=== PATIENT | female | born 1970 | race Caucasian/White ===

== ENCOUNTER 2017-05-02 11:55 | Emergency (ER) | payer MEDICAID ==
[~2017-05-02] VITALS: Ht 160 cm; Wt 100.0 kg
[2017-05-02 11:58] VITALS: Ht 160 cm; Wt 100.0 kg
[2017-05-02] MEDS ORDERED: morphine 2 MG INJ IV STA (12:11)
[2017-05-02] MEDS ORDERED: SOD CHLORIDE 0.9% 1,000 ML IV STA (12:11)
[2017-05-02] MEDS ORDERED: ONDANSETRON 4 MG INJ IV STA (12:11)
--- NOTE | 2017-05-02 12:21 | ERA ---
ER Documentation Chief Complaint Date/Time DATE: 05/02/17 TIME: 12:18 Chief Complaint EPIGASTRIC PAIN RAD LOWER ABD , ONSET 2 HRS AGO HPI This is a morbidly obese 46-year-old female presenting with a chief complaints of lower pelvic pain and upper abdominal pain 2-4 hours. Patient has had the lower abdominal/pelvic symptoms in the past but has not had the epigastric symptoms. Denies any associated manifestations including triggers or association with food. Denies nausea, vomiting, diarrhea, constipation, and inability to tolerate p.o. Patient has not taken any medications to relieve the symptoms. Nursing notes have been reviewed and are consistent with history given. ROS All systems reviewed and are negative except as per history of present illness. Medications Home Meds Active Scripts Polyethylene Glycol* (Miralax*) 17 Gm Powd.pack, 17 GM PO BID, #60 PACKET Prov:TONY HUYNH PA-C 05/02/17 Magnesium Citrate* (Magnesium Citrate*) 296 Ml Solution, 296 ML PO ONCE, #1 BOTTLE Prov:TONY HUYNH PA-C 05/02/17 Allergies Allergies: Coded Allergies: No Known Drug Allergy (Verified Allergy, Mild, 05/02/17) PMhx/Soc History of Surgery: No Hx Neurological Disorder: No Hx Respiratory Disorders: No Hx Cardiac Disorders: No Hx Miscellaneous Medical Probl: No Hx Alcohol Use: No Hx Substance Use: No Hx Tobacco Use: No Physical Exam Vitals Vital Signs Date Time Temp Pulse Resp B/P Pulse Ox O2 Delivery O2 Flow Rate FiO2 05/02/17 11:58 98.1 82 18 125/82 99 Physical Exam Const: Healthy-appearing. Well-nourished. Well-developed. No acute distress. Head: Normocephalic, Atraumatic. Eyes: Non-injected; No discharge or foreign body. EOMI and BRANDON bilaterally. Ears: Normal External Ears, EACs clear, TM normal bilaterally without erythema. Nose: Normal external nose; no discharge, septal deviation, or sinus tenderness. Oral: No oral edema visualized. Mucous membranes moist and pink. Neck: No cervical lymphadenopathy, masses or goiter palpated. Trachea midline. Supple ~ No meningismus. Pulm: Good air movement in upper and lower respiratory tracts. No dyspnea, stridor, tripoding or drooling. Clear to auscultation bilaterally. Cardio: Regular rate and rhythm; No murmurs, gallops or rubs auscultated. No JVD grossly observed. Radial and posterior tibial pulses 2+ bilaterally. No cyanosis. Capillary refill less than 2 seconds. Abd: Moderate epigastric and left lower quadrant tenderness. No McBurney's point tenderness. Voluntary guarding. No involuntary guarding or distention. No adnexal masses palpated. Minimal adnexal tenderness. MS: Normal motor strength, normal tone with gross examination. Skin: No petechiae or rashes. No ulcer, induration, jaundice. Good turgor. Back: No midline, flank or CVA tenderness. Ext: No edema or palpable cord. Normal movement of all extremities grossly observed. Neur: Awake, alert and oriented x3. Neurovascularly intact bilaterally. Psych: Normal Mood and Affect. Result Diagram: 05/02/17 1224 05/02/17 1224 Results 24 hrs Laboratory Tests Test 05/02/17 12:24 05/02/17 13:23 White Blood Count 11.310^3/ul Red Blood Count 4.5610^6/ul Hemoglobin 11.8g/dl Hematocrit 37.8% Mean Corpuscular Volume 82.9fl Mean Corpuscular Hemoglobin 25.9pg Mean Corpuscular Hemoglobin Concent 31.2g/dl Red Cell Distribution Width 16.0% Platelet Count 73163^3/UL Mean Platelet Volume 12.1fl Neutrophils % 83.4% Lymphocytes % 12.2% Monocytes % 3.0% Eosinophils % 0.8% Basophils % 0.2% Nucleated Red Blood Cells % 0.0/100WBC Neutrophils # 9.410^3/ul Lymphocytes # 1.410^3/ul Monocytes # 0.310^3/ul Eosinophils # 0.110^3/ul Basophils # 0.010^3/ul Nucleated Red Blood Cells # 0.010^3/ul Prothrombin Time 13.0Sec Prothrombin Time Ratio 1.0 INR International Normalized Ratio 0.98 Activated Partial Thromboplast Time 22.5Sec Sodium Level 146mmol/L Potassium Level 3.7mmol/L Chloride Level 104mmol/L Carbon Dioxide Level 26mmol/L Anion Gap 20 Blood Urea Nitrogen 14mg/dl Creatinine 0.75mg/dl Glucose Level 129mg/dl Calcium Level 8.4mg/dl Total Bilirubin 0.1mg/dl Direct Bilirubin 0.00mg/dl Indirect Bilirubin 0.1mg/dl Aspartate Amino Transf (AST/SGOT) 21IU/L Alanine Aminotransferase (ALT/SGPT) 31IU/L Alkaline Phosphatase 128IU/L Total Protein 8.2g/dl Albumin 4.2g/dl Globulin 4.00g/dl Albumin/Globulin Ratio 1.05 Lipase 32U/L Urine Color YELLOW Urine Clarity CLOUDY Urine pH 6.0 Urine Specific [place] 1.017 Urine Ketones NEGATIVEmg/dL Urine Nitrite NEGATIVEmg/dL Urine Bilirubin NEGATIVEmg/dL Urine Urobilinogen NEGATIVEmg/dL Urine Leukocyte Esterase 2+Ale/ul Urine Microscopic RBC 10/HPF Urine Microscopic WBC 23/HPF Urine Squamous Epithelial Cells FEW/HPF Urine Bacteria FEW/HPF Urine Mucus FEW/HPF Urine Hemoglobin 3+mg/dL Urine Glucose NEGATIVEmg/dL Urine Total Protein NEGATIVEmg/dl Current Medications Medications (Trade) Dose Ordered Sig/Malena Route PRN Reason Start Time Stop Time Status Last Admin Dose Admin Sodium Chloride (NS) 1,000 ml @ 1,000 mls/hr Q1H STAT IV 05/02/17 12:11 05/02/17 13:10 DC 05/02/17 12:34 Morphine Sulfate (morphine) 2 mg ONCE STAT IV 05/02/17 12:11 05/02/17 12:13 DC 05/02/17 13:26 Ondansetron HCl (Zofran Inj) 4 mg ONCE STAT IV 05/02/17 12:11 05/02/17 12:13 DC 05/02/17 12:34 Procedures/MDM Patient was evaluated and worked up for abdominal discomfort. Patient was given 1 L saline bolus over 1 hour, 2 mg morphine IV, 4 mg Zofran IV with relief of symptoms. The workup included CBC, CMP, lipase, urinalysis, urine and noncontrast CT of abdomen pelvis. CBC: Leukocytosis at 11.8. CMP hypernatremia 146. Increased alk phos. Normal lipase AST and ALT.CT was read by the radiologist given the following impression: 1. There is substantial stool within the colon, particularly on the right. A few scattered diverticuli are evident with there is no evidence of bowel obstruction or diverticulitis. Portions of a normal-appearing vermiform appendix are evident an overlying soft tissue density contiguous with the right uterine fundus suspicious for a fibroid. 2. There is no evidence of urinary outflow obstruction or ureterolithiasis. The bladder appears unremarkable. 3. Borderline hepatomegaly with no focal lesion. 4. Discoid atelectasis is noted within the posterior lung bases bilaterally. 5. Bilateral spondylolysis at L5 not associated with significant spondylolisthesis. Current most likely diagnosis is constipation versus abdominal pain of unknown origin. At this time I do not suspect appendicitis, ectopic , ovarian cyst, PID, UTI, intestinal ischemia, peritonitis, mechanical intestinal obstruction, perforated viscus, acute pancreatitis, cholelithiasis, cholangitis , mechanical obstruction, or AAA. On repeat exam, the abdominal exam has improved. I reviewed the findings with my attending Dr. West who agrees with the assessment and plan. The patient is well appearing, and tolerates PO. I have spoke with the patient regarding their condition and future management. They have verbally responded that they understand their status and treatment plan. The patients vitals are stable, and their current condition is appropriate for discharge. The patient will be given discharge instructions with return precautions. Outpatient medications: Magnesium citrate 1 bottle, MiraLAX Departure Diagnosis: Primary Impression: Abdominal pain Qualified Code: R10.84 - Generalized abdominal pain Additional Impression: Abdominal cramps Condition: Stable Additional Instructions: Follow up with your PCP within the next 1-3 days for a more thorough evaluation and a possible referral to a specialist. Return the the emergency department immediately if symptoms worsen or change. If you have any questions regarding medications, ask your pharmacist or us before you leave. If any adverse reactions occur while taking your medications, discontinue the treatment and return to the emergency department immediately. Take your medications as directed, and complete the entire course of treatment. TONY HUYNH PA-C May 02, 2017 12:21
[2017-05-02 12:42] LABS: BASOPHILS % 0.2 % (0.0-2.0); EOSINOPHILS # 0.1 10^3/ul (0.0-0.5); EOSINOPHILS % 0.8 % (0.0-7.0); HEMATOCRIT 37.8 % (37.0-47.0); HEMOGLOBIN 11.8 g/dl (12.0-16.0); LYMPHOCYTES # 1.4 10^3/ul (0.8-2.9); LYMPHOCYTES % 12.2 % (15.0-51.0); MEAN CORPUSCULAR HEMOGLOBIN 25.9 pg (29.0-33.0); MEAN CORPUSCULAR HGB CONC 31.2 g/dl (32.0-37.0); MEAN CORPUSCULAR VOLUME 82.9 fl (82.0-101.0); MEAN PLATELET VOLUME 12.1 fl (7.4-10.4); MONOCYTE # 0.3 10^3/ul (0.3-0.9); NEUTROPHIL # 9.4 10^3/ul (1.6-7.5); NEUTROPHILS % 83.4 % (39.0-77.0); PLATELET COUNT 201 10^3/UL (140-415); RED BLOOD COUNT 4.56 10^6/ul (4.20-5.40); WHITE BLOOD COUNT 11.3 10^3/ul (4.8-10.8)
[2017-05-02 12:56] LABS: INR 0.98
[2017-05-02 12:57] LABS: PARTIAL THROMBOPLASTIN TIME 22.5 Sec (25.0-35.0)
[2017-05-02 13:51] LABS: ALBUMIN 4.2 g/dl (3.3-4.9); ALBUMIN/GLOBULIN RATIO 1.05; BILIRUBIN,INDIRECT 0.1 mg/dl (0-1.1); BILIRUBIN,TOTAL 0.1 mg/dl (0.2-1.3); CALCIUM 8.4 mg/dl (8.4-10.2); CREATININE 0.75 mg/dl (0.44-1.00); POTASSIUM 3.7 mmol/L (3.5-5.1); TOTAL PROTEIN 8.2 g/dl (6.1-8.1)
--- NOTE | 2017-05-02 14:08 | RADRPT ---
PROCEDURE: CT Abdomen and Pelvis without contrast CLINICAL INDICATION: At the gastric and bilateral pelvic pain TECHNIQUE: Transaxial images were obtained through the abdomen and pelvis on a multi-slice scanner without the intravenous contrast administration. No oral contrast had previously been given. Sagit heidi and coronal re-formations were subsequently reconstructed. One or more of the following dose reduction techniques were used: - Automated exposure control. - Adjustment of the mA and/or kV according to patient size. - Use of iterative reconstruction technique. Radiation dose: CTDIvol = 23.55 mGy; DLP = 1227.33 mGy-cm. COMPARISON: No prior studies are available for comparison. FINDINGS: Lung bases: Foci of discoid atelectasis are seen within the posterior sulci of the lungs bilaterally . Liver: The liver is borderline enlarged with no focal lesion identified. Gallbladder: The wall is not thickened. No radiopaque stones are identified. Bile ducts: The intra and extrahepatic bile ducts are normal in caliber. Pancreas: Appears normal with no mass or inflammation evident. Spleen: Normal in size with no focal lesion. Adrenals: Normal with no mass identified. Kidneys, ureters and bladder: The kidneys are normal in size and there is no mass, pathological calc ification, or hydronephrosis evident. There is no perinephric stranding. The ureters are normal in c aliber and no ureteroliths are identified. The bladder appears unremarkable. Reproductive organs: The uterus is midline. There is soft tissue density inseparable from the uteru s extending more superiorly to the right suspicious for a fibroid. No adnexal mass is evident. Stomach and bowel: The stomach appears unremarkable. There is substantial stool within the colon pa rticularly on the right. A couple of diverticuli are seen within the distal descending and sigmoid colon. Appendix: Portions of an unremarkable appearing vermiform appendix are evident and appears to lying over the soft tissue density contiguous with the right uterine fundus which likely represents a fibr oid. Peritoneum: No free intraperitoneal fluid or air is identified. Aorta: Normal in caliber with no aneurysmal dilatation. IVC: Unremarkable. Lymph nodes: No pathologically enlarged nodes are identified. Osseous structures: There is bilateral spondylolysis at L5 not associated significant spondylolisthe sis. IMPRESSION: 1. There is substantial stool within the colon, particularly on the right. A few scattered diverti culi are evident with there is no evidence of bowel obstruction or diverticulitis. Portions of a no rmal-appearing vermiform appendix are evident an overlying soft tissue density contiguous with the r ight uterine fundus suspicious for a fibroid. 2. There is no evidence of urinary outflow obstruction or ureterolithiasis. The bladder appears un remarkable. 3. Borderline hepatomegaly with no focal lesion. 4. Discoid atelectasis is noted within the posterior lung bases bilaterally. 5. Bilateral spondylolysis at L5 not associated with significant spondylolisthesis. Physician Mary Date Time Electronically viewed and signed by Fletcher Szymanski Physician on 05/02/2017 14:08 /
[2017-05-02 14:09] LABS: ADD UMIC YES; UR ASCORBIC ACID NEGATIVE (NEGATIVE); UR BACTERIA FEW /HPF (NONE SEEN); UR BILIRUBIN (Dip) NEGATIVE (NEGATIVE); UR BLOOD (Dip) 3+ mg/dL (NEGATIVE); UR CLARITY CLOUDY (CLEAR); UR COLOR YELLOW (YELLOW); UR GLUCOSE (Dip) NEGATIVE (NEGATIVE); UR KETONES (Dip) NEGATIVE (NEGATIVE); UR LEUKOCYTE ESTERASE (Dip) 2+ Leu/ul (NEGATIVE); UR MUCUS FEW /HPF (NONE SEEN); UR NITRITE (Dip) NEGATIVE (NEGATIVE); UR RBC 10 /HPF (0-5); UR SPECIFIC GRAVITY (Dip) 1.017 (1.003-1.030); UR SQUAMOUS EPITHELIAL CELL FEW /HPF (FEW); UR TOTAL PROTEIN (Dip) NEGATIVE (NEGATIVE); UR UROBILINOGEN (Dip) NEGATIVE (NEGATIVE)
[2017-05-02] MEDS ORDERED: POLY17PO6 PO (14:31)
[2017-05-02] MEDS ORDERED: MAGN296S40 PO (14:31)
[2017-05-02] MEDS ORDERED: KETOROLAC 15 MG INJ IM STA (15:09)
[2017-05-02] MEDS ORDERED: IBUP-1542 PO (17:15)
== END 2017-05-02 17:51 | disposition home or self-care (01) ==
LOC: FTE 11:55
DX: R10.84 Generalized abdominal pain (principal)
CPT/HCPCS: 36415; 74176; 80053; 81001; 83690; 85025; 85610; 85730; 96372; 96374; 96375; J1885; J2270; J2405; J7030; Z7502

== ENCOUNTER 2017-07-28 21:00 | Inpatient (IN) | payer MEDICAID, OTHER ==
[~2017-07-28] VITALS: Ht 304.8 cm; Wt 104.0 kg
[~2017-07-28 21:00] MED LIST: IBUP-1542 PO; MAGN296S40 PO; POLY17PO6 PO
[2017-07-28] MEDS ORDERED: IBUP800T25 PO (21:43)
[2017-07-28] MEDS ORDERED: PENI500T PO (21:44)
[2017-07-28] MEDS ORDERED: ONDANSETRON 4 MG INJ IV STA (22:30)
[2017-07-28] MEDS ORDERED: SOD CHLORIDE 0.9% 1,000 ML IV STA (22:30)
[2017-07-28] MEDS ORDERED: HYDROmorphONE 1 MG/ML SYG IV STA (22:30)
[2017-07-28] MEDS ORDERED: SOD CHLORIDE 0.9% 100 ML ONE (23:42)
[2017-07-28] MEDS ORDERED: IOHEXOL 300MG/ML 150 ML BTL ONE (23:42)
[2017-07-29] MEDS ORDERED: ONDANSETRON 4 MG INJ IV ONE (00:43)
[2017-07-29] MEDS ORDERED: HYDROmorphONE 1 MG/ML SYG IV ONE (00:43)
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
[2017-07-29] MEDS ORDERED: ONDANSETRON 4 MG INJ IV STA (04:17)
[2017-07-29] MEDS ORDERED: SOD CHLORIDE 0.9% 1,000 ML IV SCH ×2 (05:47→18:00)
[2017-07-29] MEDS ORDERED: ACETAMINOPHEN 325 MG TAB PO PRN (06:00)
--- NOTE | 2017-07-29 06:59 | CONS ---
Date/Time of Note Date/Time of Note DATE: 07/29/17 TIME: 06:46 Assessment/Plan Assessment/Plan Chief Complaint/Hosp Course , Abdominal pain, nausea vomiting , evidence of hemoperitoneum and enlarged heterogeneous right ovary, concerning for possible torsion versus hemorrhagic ovarian cyst with intraperitoneal hemorrhage Pelvic ultrasound, pending I have discussed with the patient regarding possibility of diagnostic laparoscopy possible open and possible ovarian cystectomy versus salpingo- oophorectomy as well as blood transfusion and the risk and benefit also including risk of infection, bleeding, damage to surrounding structures including bowel and bladder and risk of blood transfusion including but not limited to blood borne infection including HIV, hepatitis B and C and transfusion reaction discussed with patient in detail and informed consent was obtained. We will consider type and cross 2 units Currently is not anemic and her vitals are stable There is mild diffuse fluid throughout the abdomen and pelvis suggestive of hemoperitoneum appears to be tracking to the upper abdomen. Hemoglobin currently stable HCG pending, r/o for ectopic . CA 125, CA19-9 and HCG pending, will follow up with the ultrasound results as soon as possible Discussed with the patient, she will be seen by upcoming DANCING TEACHER attending. consider diagnostic laparoscopy possible laparoscopic ovarian cystectomy and detorsion possible open possible oophorectomy and possible blood transfusion again discussed with the patient if any evidence of ovarian torsion or unstable vital signs noted. I discussed the patient she will be followed by upcoming DANCING TEACHER attending after the ultrasound results for this decision Problems: Consultation Date/Type/Reason Admit Date/Time Date of Consultation: Jul 29, 2017 Type of Consultation: DANCING TEACHER Reason for Consultation DANCING TEACHER evaulaion, possible torsion Hx of Present Illness 47-year-old presented to emergency room with complaint of abdominal pain in the right side as started 2 days ago. Pain gradually increased. Currently reports pain sharp 10 out of 10. Per patient pain is in the right side from the xiphoid process to the symphysis pubis as well as left shoulder pain. Patient also complained of nausea and vomiting. Per patient. This started yesterday. Psych is has been always regular every 28 days last about 3 days and the first 2 days is very heavy. Patient takes currently ibuprofen for dysmenorrhea and menorrhagia. Next She denies any other significant medical problem except menorrhagia. Her last DANCING TEACHER exam for was years ago. She is not currently sexually active. Denies any new cycle. Her last Pap smear was years ago and did not have any gynecology examination for the last several years. Patient had a CT scan of the abdomen and pelvis that showed mild diffuse fluid throughout the abdomen and pelvis of increased density suggestive of hemoperitoneum as well as the use and large heterogeneous right ovary. An ovarian mass or torsion could not be ruled out and could have the same appearance. There is also some posterior medial splenic linear defects suggestive of splenic cleft which appears to be present of the patient's noncontrast examination no evidence of appendicitis. There is also mildly thickened loops of small bowel without obstruction suggestive of an ileus. Subjective hx not possible: other (Gaurded) Constitutional: other (Patient is Drowsy due to pain medication and received.) Eyes: no complaints ENT: no complaints Respiratory: no complaints Cardiovascular: no complaints Gastrointestinal: nausea, pain, vomiting Genitourinary: bleeding Musculoskeletal: back pain Neurologic: no complaints Endocrine: no complaints Psychological: no complaints Immunologic: no complaints Additional Comments Patient reports shoulder pain more in the left side than right side as well as back pain and abdominal pain from xiphoid process to the symphysis pubis in the right side as well as bloating symptoms. 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 Has not been sexually active for at least a month. Cycles have been regular every 28 days last about 3 days with heavy flow. Takes ibuprofen for dysmenorrhea and menorrhagia and helps. Had not have any DANCING TEACHER exam for several years. Was planning to see her DANCING TEACHER recently. Last Pap smear was several years ago. Denies any known history of abnormal Pap smear in the past. Denies any known history of ovarian cyst or any other gynecologic problem aside menorrhagia and dysmenorrhea Past Surgical History Denies any prior history of surgery Family History Significant Family History: no pertinent family hx Social History Patient denies of smoking, drinking or using any drugs Alcohol Use: none Smoking Status: Never smoker Drug Use: none Exam/Review of Systems Vital Signs Vitals Vital Signs Date Time Temp Pulse Resp B/P Pulse Ox O2 Delivery O2 Flow Rate FiO2 07/29/17 05:09 80 16 124/63 97 Nasal Cannula 2.0 07/28/17 22:01 98.1 Exam Constitutional: distress, obese, other (Patient appears to be in moderate distress due to abdominal pain and appears to be drowsy due to pain medication and received), well developed Psych: nl mood/affect, no complaints Head: atraumatic, normocephalic Eyes: nl conjunctiva Neck: supple Respiratory: clear to auscultation, other (Oxygen saturation 92 with nasal cannula) Cardiovascular: regular rate and rhythm Gastrointestinal: tender ( Tenderness as well as rebound tenderness more in the right lower abdomen than left side. Exam is limited due to patient's obesity as well as patient's voluntary guarding and examination of the right lower abdomen) Genitourinary - Female: other (Speculum examination: Scant amount of dark) Extremities: normal pulses Neurological: COLORS CUSTODIAN II-XII intact Skin: nl turgor Results Result Diagram: 07/28/17211907/28/172119 Results 24 hrs Laboratory Tests Test 07/28/17 21:20 White Blood Count 12.9 H Red Blood Count 4.35 Hemoglobin 11.5 L Hematocrit 36.6 L Mean Corpuscular Volume 84.1 Mean Corpuscular Hemoglobin 26.4 L Mean Corpuscular Hemoglobin Concent 31.4 L Red Cell Distribution Width 16.2 H Platelet Count 218 Mean Platelet Volume 11.7 H Neutrophils % 82.2 H Lymphocytes % 12.5 L Monocytes % 4.4 Eosinophils % 0.3 Basophils % 0.3 Nucleated Red Blood Cells % 0.0 Neutrophils # 10.6 H Lymphocytes # 1.6 Monocytes # 0.6 Eosinophils # 0.0 Basophils # 0.0 Nucleated Red Blood Cells # 0.0 Prothrombin Time 13.4 Prothrombin Time Ratio 1.0 INR International Normalized Ratio 1.02 Sodium Level 143 Potassium Level 3.4 L Chloride Level 109 Carbon Dioxide Level 23 Anion Gap 14 Blood Urea Nitrogen 17 Creatinine 0.82 Glucose Level 184 Calcium Level 8.9 Total Bilirubin 0.2 Direct Bilirubin 0.00 Indirect Bilirubin 0.2 Aspartate Amino Transf (AST/SGOT) 24 Alanine Aminotransferase (ALT/SGPT) 31 Alkaline Phosphatase 117 Troponin I < 0.012 Total Protein 8.3 H Albumin 3.9 Globulin 4.40 H Albumin/Globulin Ratio 0.88 Lipase 38 Medications Medications Current Medications Sodium Chloride (NS) 1,000 ml @ 80 mls/hr [id number] IV ; Start 07/29/17 at 05:47 ; Stop 07/29/17 at 18:16 Procedures Procedures PROCEDURE: CT Abdomen and Pelvis without contrast CLINICAL INDICATION: At the gastric and bilateral pelvic pain TECHNIQUE: Transaxial images were obtained through the abdomen and pelvis on a multi-slice scanner without the intravenous contrast administration. No oral contrast had previously been given. Sagittal and coronal re-formations were subsequently reconstructed. One or more of the following dose reduction techniques were used: - Automated exposure control. - Adjustment of the mA and/or kV according to patient size. - Use of iterative reconstruction technique. Radiation dose: CTDIvol = 23.55 mGy; DLP = 1227.33 mGy-cm. COMPARISON: No prior studies are available for comparison. FINDINGS: Lung bases: Foci of discoid atelectasis are seen within the posterior sulci of the lungs bilaterally. Liver: The liver is borderline enlarged with no focal lesion identified. Gallbladder: The wall is not thickened. No radiopaque stones are identified. Bile ducts: The intra and extrahepatic bile ducts are normal in caliber. Pancreas: Appears normal with no mass or inflammation evident. Spleen: Normal in size with no focal lesion. Adrenals: Normal with no mass identified. Kidneys, ureters and bladder: The kidneys are normal in size and there is no mass, pathological calcification, or hydronephrosis evident. There is no perinephric stranding. The ureters are normal in caliber and no ureteroliths are identified. The bladder appears unremarkable. Reproductive organs: The uterus is midline. There is soft tissue density inseparable from the uterus extending more superiorly to the right suspicious for a fibroid. No adnexal mass is evident. Stomach and bowel: The stomach appears unremarkable. There is substantial stool within the colon particularly on the right. A couple of diverticuli are seen within the distal descending and sigmoid colon. Appendix: Portions of an unremarkable appearing vermiform appendix are evident and appears to lying over the soft tissue density contiguous with the right uterine fundus which likely represents a fibroid. Peritoneum: No free intraperitoneal fluid or air is identified. Aorta: Normal in caliber with no aneurysmal dilatation. IVC: Unremarkable. Lymph nodes: No pathologically enlarged nodes are identified. Osseous structures: There is bilateral spondylolysis at L5 not associated significant spondylolisthesis. IMPRESSION: 1. There is substantial stool within the colon, particularly on the right. A few scattered diverticuli are evident with there is no evidence of bowel obstruction or diverticulitis. Portions of a normal-appearing vermiform appendix are evident an overlying soft tissue density contiguous with the right uterine fundus suspicious for a fibroid. 2. There is no evidence of urinary outflow obstruction or ureterolithiasis. The bladder appears unremarkable. 3. Borderline hepatomegaly with no focal lesion. 4. Discoid atelectasis is noted within the posterior lung bases bilaterally. 5. Bilateral spondylolysis at L5 not associated with significant spondylolisthesis. RENE MCKOY MD Jul 29, 2017 06:57
--- NOTE | 2017-07-29 06:59 | CONS ---
Date/Time of Note Date/Time of Note DATE: 07/29/17 TIME: 06:46 Assessment/Plan Assessment/Plan Chief Complaint/Hosp Course , Abdominal pain, nausea vomiting , evidence of hemoperitoneum and enlarged heterogeneous right ovary, concerning for possible torsion versus hemorrhagic ovarian cyst with intraperitoneal hemorrhage Pelvic ultrasound, pending I have discussed with the patient regarding possibility of diagnostic laparoscopy possible open and possible ovarian cystectomy versus salpingo- oophorectomy as well as blood transfusion and the risk and benefit also including risk of infection, bleeding, damage to surrounding structures including bowel and bladder and risk of blood transfusion including but not limited to blood borne infection including HIV, hepatitis B and C and transfusion reaction discussed with patient in detail and informed consent was obtained. We will consider type and cross 2 units Currently is not anemic and her vitals are stable There is mild diffuse fluid throughout the abdomen and pelvis suggestive of hemoperitoneum appears to be tracking to the upper abdomen. Hemoglobin currently stable HCG pending, r/o for ectopic . CA 125, CA19-9 and HCG pending, will follow up with the ultrasound results as soon as possible Discussed with the patient, she will be seen by upcoming EMBEDDED SYSTEMS ENGINEER attending. consider diagnostic laparoscopy possible laparoscopic ovarian cystectomy and detorsion possible open possible oophorectomy and possible blood transfusion again discussed with the patient if any evidence of ovarian torsion or unstable vital signs noted. I discussed the patient she will be followed by upcoming EMBEDDED SYSTEMS ENGINEER attending after the ultrasound results for this decision Problems: Consultation Date/Type/Reason Admit Date/Time Date of Consultation: Jul 29, 2017 Type of Consultation: EMBEDDED SYSTEMS ENGINEER Reason for Consultation EMBEDDED SYSTEMS ENGINEER evaulaion, possible torsion Hx of Present Illness 47-year-old presented to emergency room with complaint of abdominal pain in the right side as started 2 days ago. Pain gradually increased. Currently reports pain sharp 10 out of 10. Per patient pain is in the right side from the xiphoid process to the symphysis pubis as well as left shoulder pain. Patient also complained of nausea and vomiting. Per patient. This started yesterday. Psych is has been always regular every 28 days last about 3 days and the first 2 days is very heavy. Patient takes currently ibuprofen for dysmenorrhea and menorrhagia. Next She denies any other significant medical problem except menorrhagia. Her last EMBEDDED SYSTEMS ENGINEER exam for was years ago. She is not currently sexually active. Denies any new cycle. Her last Pap smear was years ago and did not have any gynecology examination for the last several years. Patient had a CT scan of the abdomen and pelvis that showed mild diffuse fluid throughout the abdomen and pelvis of increased density suggestive of hemoperitoneum as well as the use and large heterogeneous right ovary. An ovarian mass or torsion could not be ruled out and could have the same appearance. There is also some posterior medial splenic linear defects suggestive of splenic cleft which appears to be present of the patient's noncontrast examination no evidence of appendicitis. There is also mildly thickened loops of small bowel without obstruction suggestive of an ileus. Subjective hx not possible: other (Gaurded) Constitutional: other (Patient is Drowsy due to pain medication and received.) Eyes: no complaints ENT: no complaints Respiratory: no complaints Cardiovascular: no complaints Gastrointestinal: nausea, pain, vomiting Genitourinary: bleeding Musculoskeletal: back pain Neurologic: no complaints Endocrine: no complaints Psychological: no complaints Immunologic: no complaints Additional Comments Patient reports shoulder pain more in the left side than right side as well as back pain and abdominal pain from xiphoid process to the symphysis pubis in the right side as well as bloating symptoms. 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 Has not been sexually active for at least a month. Cycles have been regular every 28 days last about 3 days with heavy flow. Takes ibuprofen for dysmenorrhea and menorrhagia and helps. Had not have any EMBEDDED SYSTEMS ENGINEER exam for several years. Was planning to see her EMBEDDED SYSTEMS ENGINEER recently. Last Pap smear was several years ago. Denies any known history of abnormal Pap smear in the past. Denies any known history of ovarian cyst or any other gynecologic problem aside menorrhagia and dysmenorrhea Past Surgical History Denies any prior history of surgery Family History Significant Family History: no pertinent family hx Social History Patient denies of smoking, drinking or using any drugs Alcohol Use: none Smoking Status: Never smoker Drug Use: none Exam/Review of Systems Vital Signs Vitals Vital Signs Date Time Temp Pulse Resp B/P Pulse Ox O2 Delivery O2 Flow Rate FiO2 07/29/17 05:09 80 16 124/63 97 Nasal Cannula 2.0 07/28/17 22:01 98.1 Exam Constitutional: distress, obese, other (Patient appears to be in moderate distress due to abdominal pain and appears to be drowsy due to pain medication and received), well developed Psych: nl mood/affect, no complaints Head: atraumatic, normocephalic Eyes: nl conjunctiva Neck: supple Respiratory: clear to auscultation, other (Oxygen saturation 92 with nasal cannula) Cardiovascular: regular rate and rhythm Gastrointestinal: tender ( Tenderness as well as rebound tenderness more in the right lower abdomen than left side. 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0 Nucleated Red Blood Cells # 0.0 Prothrombin Time 13.4 Prothrombin Time Ratio 1.0 INR International Normalized Ratio 1.02 Sodium Level 143 Potassium Level 3.4 L Chloride Level 109 Carbon Dioxide Level 23 Anion Gap 14 Blood Urea Nitrogen 17 Creatinine 0.82 Glucose Level 184 Calcium Level 8.9 Total Bilirubin 0.2 Direct Bilirubin 0.00 Indirect Bilirubin 0.2 Aspartate Amino Transf (AST/SGOT) 24 Alanine Aminotransferase (ALT/SGPT) 31 Alkaline Phosphatase 117 Troponin I < 0.012 Total Protein 8.3 H Albumin 3.9 Globulin 4.40 H Albumin/Globulin Ratio 0.88 Lipase 38 Medications Medications Current Medications Sodium Chloride (NS) 1,000 ml @ 80 mls/hr [id number] IV ; Start 07/29/17 at 05:47 ; Stop 07/29/17 at 18:16 Procedures Procedures PROCEDURE: CT Abdomen and Pelvis without contrast CLINICAL INDICATION: At the gastric and bilateral pelvic pain TECHNIQUE: Transaxial images were obtained through the abdomen and pelvis on a multi-slice scanner without the intravenous contrast administration. No oral contrast had previously been given. Sagittal and coronal re-formations were subsequently reconstructed. One or more of the following dose reduction techniques were used: - Automated exposure control. - Adjustment of the mA and/or kV according to patient size. - Use of iterative reconstruction technique. Radiation dose: CTDIvol = 23.55 mGy; DLP = 1227.33 mGy-cm. COMPARISON: No prior studies are available for comparison. FINDINGS: Lung bases: Foci of discoid atelectasis are seen within the posterior sulci of the lungs bilaterally. Liver: The liver is borderline enlarged with no focal lesion identified. Gallbladder: The wall is not thickened. No radiopaque stones are identified. Bile ducts: The intra and extrahepatic bile ducts are normal in caliber. Pancreas: Appears normal with no mass or inflammation evident. Spleen: Normal in size with no focal lesion. Adrenals: Normal with no mass identified. Kidneys, ureters and bladder: The kidneys are normal in size and there is no mass, pathological calcification, or hydronephrosis evident. There is no perinephric stranding. The ureters are normal in caliber and no ureteroliths are identified. The bladder appears unremarkable. Reproductive organs: The uterus is midline. There is soft tissue density inseparable from the uterus extending more superiorly to the right suspicious for a fibroid. No adnexal mass is evident. Stomach and bowel: The stomach appears unremarkable. There is substantial stool within the colon particularly on the right. A couple of diverticuli are seen within the distal descending and sigmoid colon. Appendix: Portions of an unremarkable appearing vermiform appendix are evident and appears to lying over the soft tissue density contiguous with the right uterine fundus which likely represents a fibroid. Peritoneum: No free intraperitoneal fluid or air is identified. Aorta: Normal in caliber with no aneurysmal dilatation. IVC: Unremarkable. Lymph nodes: No pathologically enlarged nodes are identified. Osseous structures: There is bilateral spondylolysis at L5 not associated significant spondylolisthesis. IMPRESSION: 1. There is substantial stool within the colon, particularly on the right. A few scattered diverticuli are evident with there is no evidence of bowel obstruction or diverticulitis. Portions of a normal-appearing vermiform appendix are evident an overlying soft tissue density contiguous with the right uterine fundus suspicious for a fibroid. 2. There is no evidence of urinary outflow obstruction or ureterolithiasis. The bladder appears unremarkable. 3. Borderline hepatomegaly with no focal lesion. 4. Discoid atelectasis is noted within the posterior lung bases bilaterally. 5. Bilateral spondylolysis at L5 not associated with significant spondylolisthesis. RENE MCKOY MD Jul 29, 2017 06:57
--- NOTE | 2017-07-29 06:59 | CONS ---
Date/Time of Note Date/Time of Note DATE: 07/29/17 TIME: 06:46 Assessment/Plan Assessment/Plan Chief Complaint/Hosp Course , Abdominal pain, nausea vomiting , evidence of hemoperitoneum and enlarged heterogeneous right ovary, concerning for possible torsion versus hemorrhagic ovarian cyst with intraperitoneal hemorrhage Pelvic ultrasound, pending I have discussed with the patient regarding possibility of diagnostic laparoscopy possible open and possible ovarian cystectomy versus salpingo- oophorectomy as well as blood transfusion and the risk and benefit also including risk of infection, bleeding, damage to surrounding structures including bowel and bladder and risk of blood transfusion including but not limited to blood borne infection including HIV, hepatitis B and C and transfusion reaction discussed with patient in detail and informed consent was obtained. We will consider type and cross 2 units Currently is not anemic and her vitals are stable There is mild diffuse fluid throughout the abdomen and pelvis suggestive of hemoperitoneum appears to be tracking to the upper abdomen. Hemoglobin currently stable HCG pending, r/o for ectopic . CA 125, CA19-9 and HCG pending, will follow up with the ultrasound results as soon as possible Discussed with the patient, she will be seen by upcoming JUNIOR PROGRAMMER attending. consider diagnostic laparoscopy possible laparoscopic ovarian cystectomy and detorsion possible open possible oophorectomy and possible blood transfusion again discussed with the patient if any evidence of ovarian torsion or unstable vital signs noted. I discussed the patient she will be followed by upcoming JUNIOR PROGRAMMER attending after the ultrasound results for this decision Problems: Consultation Date/Type/Reason Admit Date/Time Date of Consultation: Jul 29, 2017 Type of Consultation: JUNIOR PROGRAMMER Reason for Consultation JUNIOR PROGRAMMER evaulaion, possible torsion Hx of Present Illness 47-year-old presented to emergency room with complaint of abdominal pain in the right side as started 2 days ago. Pain gradually increased. Currently reports pain sharp 10 out of 10. Per patient pain is in the right side from the xiphoid process to the symphysis pubis as well as left shoulder pain. Patient also complained of nausea and vomiting. Per patient. This started yesterday. Psych is has been always regular every 28 days last about 3 days and the first 2 days is very heavy. Patient takes currently ibuprofen for dysmenorrhea and menorrhagia. Next She denies any other significant medical problem except menorrhagia. Her last JUNIOR PROGRAMMER exam for was years ago. She is not currently sexually active. Denies any new cycle. Her last Pap smear was years ago and did not have any gynecology examination for the last several years. Patient had a CT scan of the abdomen and pelvis that showed mild diffuse fluid throughout the abdomen and pelvis of increased density suggestive of hemoperitoneum as well as the use and large heterogeneous right ovary. An ovarian mass or torsion could not be ruled out and could have the same appearance. There is also some posterior medial splenic linear defects suggestive of splenic cleft which appears to be present of the patient's noncontrast examination no evidence of appendicitis. There is also mildly thickened loops of small bowel without obstruction suggestive of an ileus. Subjective hx not possible: other (Gaurded) Constitutional: other (Patient is Drowsy due to pain medication and received.) Eyes: no complaints ENT: no complaints Respiratory: no complaints Cardiovascular: no complaints Gastrointestinal: nausea, pain, vomiting Genitourinary: bleeding Musculoskeletal: back pain Neurologic: no complaints Endocrine: no complaints Psychological: no complaints Immunologic: no complaints Additional Comments Patient reports shoulder pain more in the left side than right side as well as back pain and abdominal pain from xiphoid process to the symphysis pubis in the right side as well as bloating symptoms. 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 Has not been sexually active for at least a month. Cycles have been regular every 28 days last about 3 days with heavy flow. Takes ibuprofen for dysmenorrhea and menorrhagia and helps. Had not have any JUNIOR PROGRAMMER exam for several years. Was planning to see her JUNIOR PROGRAMMER recently. Last Pap smear was several years ago. Denies any known history of abnormal Pap smear in the past. Denies any known history of ovarian cyst or any other gynecologic problem aside menorrhagia and dysmenorrhea Past Surgical History Denies any prior history of surgery Family History Significant Family History: no pertinent family hx Social History Patient denies of smoking, drinking or using any drugs Alcohol Use: none Smoking Status: Never smoker Drug Use: none Exam/Review of Systems Vital Signs Vitals Vital Signs Date Time Temp Pulse Resp B/P Pulse Ox O2 Delivery O2 Flow Rate FiO2 07/29/17 05:09 80 16 124/63 97 Nasal Cannula 2.0 07/28/17 22:01 98.1 Exam Constitutional: distress, obese, other (Patient appears to be in moderate distress due to abdominal pain and appears to be drowsy due to pain medication and received), well developed Psych: nl mood/affect, no complaints Head: atraumatic, normocephalic Eyes: nl conjunctiva Neck: supple Respiratory: clear to auscultation, other (Oxygen saturation 92 with nasal cannula) Cardiovascular: regular rate and rhythm Gastrointestinal: tender ( Tenderness as well as rebound tenderness more in the right lower abdomen than left side. 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0 Nucleated Red Blood Cells # 0.0 Prothrombin Time 13.4 Prothrombin Time Ratio 1.0 INR International Normalized Ratio 1.02 Sodium Level 143 Potassium Level 3.4 L Chloride Level 109 Carbon Dioxide Level 23 Anion Gap 14 Blood Urea Nitrogen 17 Creatinine 0.82 Glucose Level 184 Calcium Level 8.9 Total Bilirubin 0.2 Direct Bilirubin 0.00 Indirect Bilirubin 0.2 Aspartate Amino Transf (AST/SGOT) 24 Alanine Aminotransferase (ALT/SGPT) 31 Alkaline Phosphatase 117 Troponin I < 0.012 Total Protein 8.3 H Albumin 3.9 Globulin 4.40 H Albumin/Globulin Ratio 0.88 Lipase 38 Medications Medications Current Medications Sodium Chloride (NS) 1,000 ml @ 80 mls/hr [id number] IV ; Start 07/29/17 at 05:47 ; Stop 07/29/17 at 18:16 Procedures Procedures PROCEDURE: CT Abdomen and Pelvis without contrast CLINICAL INDICATION: At the gastric and bilateral pelvic pain TECHNIQUE: Transaxial images were obtained through the abdomen and pelvis on a multi-slice scanner without the intravenous contrast administration. No oral contrast had previously been given. Sagittal and coronal re-formations were subsequently reconstructed. One or more of the following dose reduction techniques were used: - Automated exposure control. - Adjustment of the mA and/or kV according to patient size. - Use of iterative reconstruction technique. Radiation dose: CTDIvol = 23.55 mGy; DLP = 1227.33 mGy-cm. COMPARISON: No prior studies are available for comparison. FINDINGS: Lung bases: Foci of discoid atelectasis are seen within the posterior sulci of the lungs bilaterally. Liver: The liver is borderline enlarged with no focal lesion identified. Gallbladder: The wall is not thickened. No radiopaque stones are identified. Bile ducts: The intra and extrahepatic bile ducts are normal in caliber. Pancreas: Appears normal with no mass or inflammation evident. Spleen: Normal in size with no focal lesion. Adrenals: Normal with no mass identified. Kidneys, ureters and bladder: The kidneys are normal in size and there is no mass, pathological calcification, or hydronephrosis evident. There is no perinephric stranding. The ureters are normal in caliber and no ureteroliths are identified. The bladder appears unremarkable. Reproductive organs: The uterus is midline. There is soft tissue density inseparable from the uterus extending more superiorly to the right suspicious for a fibroid. No adnexal mass is evident. Stomach and bowel: The stomach appears unremarkable. There is substantial stool within the colon particularly on the right. A couple of diverticuli are seen within the distal descending and sigmoid colon. Appendix: Portions of an unremarkable appearing vermiform appendix are evident and appears to lying over the soft tissue density contiguous with the right uterine fundus which likely represents a fibroid. Peritoneum: No free intraperitoneal fluid or air is identified. Aorta: Normal in caliber with no aneurysmal dilatation. IVC: Unremarkable. Lymph nodes: No pathologically enlarged nodes are identified. Osseous structures: There is bilateral spondylolysis at L5 not associated significant spondylolisthesis. IMPRESSION: 1. There is substantial stool within the colon, particularly on the right. A few scattered diverticuli are evident with there is no evidence of bowel obstruction or diverticulitis. Portions of a normal-appearing vermiform appendix are evident an overlying soft tissue density contiguous with the right uterine fundus suspicious for a fibroid. 2. There is no evidence of urinary outflow obstruction or ureterolithiasis. The bladder appears unremarkable. 3. Borderline hepatomegaly with no focal lesion. 4. Discoid atelectasis is noted within the posterior lung bases bilaterally. 5. Bilateral spondylolysis at L5 not associated with significant spondylolisthesis. RENE MCKOY MD Jul 29, 2017 06:57
[2017-07-29] MEDS: ONDANSETRON 4 MG INJ IV PRN ×2 (08:06→18:26)
--- NOTE | 2017-07-29 08:36 | RADRPT ---
PROCEDURE: ULTRASOUND LIMITED ABDOMEN CLINICAL INDICATION: 47-year-old female with abdominal pain. TECHNIQUE: Multiple sonographic of the right upper quadrant of the abdomen were obtained. The imag es were reviewed on a PACS workstation. COMPARISON: CT abdomen/pelvis May 02, 2017. FINDINGS: The pancreas is partially visualized and is otherwise without abnormal echogenicity. The liver displays mild diffuse increased echogenicity consistent with fatty infiltration. The liver measures 16.3 cm in length. No evidence of intrahepatic biliary ductal dilatation is seen. The por heidi and hepatic veins are unremarkable. The gallbladder demonstrates no wall thickening, sludge, nor stones. No pericholecystic fluid is see n. The common bile duct measures 5.0 mm and is not dilated. The right kidney displays normal echogenicity. The right kidney measures 9.7 cm in length. No caliec tasis or hydronephrosis is seen. No free fluid is seen. IMPRESSION: Mild hepatic steatosis. .Thong Almanzar MD, Date Time Electronically viewed and signed by .Thong Almanzar MD, MD on 07/28/2017 23:50 .M/
[2017-07-29] MEDS ORDERED: HYDROmorphONE 1 MG/ML SYG IV STA (08:38)
--- NOTE | 2017-07-29 08:38 | RADRPT ---
AMENDMENT: 07/29/2017 1:59:34 AM Thong Almanzar Md There are bilateral L5 pars interarticularis defects without significant anterolisthesis. There are couple of small diverticula identified within the descending and sigmoid colon without surrounding i nflammatory changes. IMPRESSION: 6. Mild descending/sigmoid colon diverticulosis. 7. Bilateral L5 pars interarticularis defects. PROCEDURE: CT ABDOMEN/PELVIS WITH CONTRAST CLINICAL INDICATION: 47-year-old female with abdominal pain. TECHNIQUE: The study was performed utilizing a GE [employer] Bloom VCT 64-slice CT scanner. Direct axia l sections were obtained through the abdomen and pelvis with the use of 100 cc of Omnipaque-300 sasha onic intravenous contrast material. Sagittal and coronal reformations were obtained. One or more of the following dose reduction techniques were utilized: automated exposure control, adjustment of the mA and/or kV according to patient's size or use of iterative reconstruction technique. The images were reviewed on a PACS workstation. CTD/vol = 23.6 mGy; Total Exam DLP = 1474.6 mGy-cm. COMPARISON: CT abdomen/pelvis May 02, 2017; right upper quadrant ultrasound July 28, 2017. FINDINGS: There is mild bibasilar subsegmental atelectasis. There is no evidence for significant pleural effu ekaterina. There is mild free fluid surrounding the liver and spleen as well as in the lower abdomen and pelvis of increased density suggestive of a hemoperitoneum. The liver has a normal size and contour without focal areas of abnormal density or contrast enhancement. No intrahepatic nor extrahepatic bi liary ductal dilatation is seen. The gallbladder demonstrates no wall thickening nor pericholecystic fluid. No biliary stones are evident. The pancreas is without areas of abnormal attenuation or cont rast enhancement. This spleen is identified and has a normal size with a vertical well demarcated p osteromedial defect most suggestive of a splenic cleft which appears to have been present on the pat ient's prior noncontrast examination but not well seen. The adrenal glands are unremarkable. The kid neys are functional bilaterally. There is a small left mid renal cyst measuring approximately 7 x 6 mm.. No hydroureteronephrosis nor nephroureterolithiasis is evident. The urinary bladder contains ur ine. There are mildly thickened loops of small bowel without obstruction. The appendix is visualize d and is without edema or surrounding inflammatory reaction. The uterus is anteflexed. The right ova ry appears to be diffusely enlarged and heterogeneous measuring approximately 6.8 x 5.3 x 4.0 cm. No te that this appears similar to the patient's prior study. The aortoiliac vessels are without aneury smal dilatation. The osseous structures are intact. IMPRESSION: 1. Mild diffuse fluid throughout the abdomen and pelvis of increased density suggestive of a hemope ritoneum. 2. Diffusely enlarged heterogeneous right ovary. An ovarian mass and/or torsion could have this olgan earance. Clinical correlation and further evaluation with a pelvic ultrasound is suggested. 3. Posteromedial splenic linear defect most suggestive of a splenic cleft which appears to been pre sent on the patient's noncontrast examination. 4. No CT evidence for appendicitis. 5. Mildly thickened loops of a small bowel without obstruction suggestive of an ileus. CALL REPORT: A call report was made to [facility] ER Dr. Noble on July 29, 2017 at 01:37 a.m. .Thong Almanzar MD, Date Time Electronically viewed and signed by .Thong Almanzar MD, on 07/29/2017 01:59 .M/
--- NOTE | 2017-07-29 08:39 | RADRPT ---
PROCEDURE: US Pelvis. CLINICAL INDICATION: Right ovary mass bleeding. Last menstrual period 07/27/2017 TECHNIQUE: Multiple sonographic images of the pelvis were obtained utilizing a transabdominal tech nique only. The patient refused transvaginal ultrasound. The images were reviewed on a PACS worksta tion. COMPARISON: CT abdomen and pelvis with contrast of 07/28/2017 FINDINGS: The uterus measures 8.4 x 4.5 x 6.3 cm and is not clearly seen. The thickness of the endometrium equ als 7.4 mm. Neither ovary is seen. No adnexal mass seen. Small to moderate amount of free fluid an terior uterine fundus. IMPRESSION: Limited examination. The patient refused transvaginal ultrasound. Uterus not clearly seen. Neither o vary seen. Small to moderate amount of free fluid anterior to the uterine fundus. Please see above. RPTAT: HJES .Mono Stokes MD, Date Time Electronically viewed and signed by .Mono Stokes MD, on 07/29/2017 02:52 .S/
--- NOTE | 2017-07-29 08:39 | RADRPT ---
PROCEDURE: ULTRASOUND PELVIS CLINICAL INDICATION: 47-year-old female with pelvic pain. TECHNIQUE: Multiple sonographic images of the pelvis were obtained utilizing a transabdominal and endovaginal technique. The images were reviewed on a PACS workstation. COMPARISON: CT abdomen/pelvis July 29, 2017 at 12:02 a.m.; ultrasound pelvis transabdominal Oct emily2016 at 02:11 a.m. FINDINGS: The uterus is visualized and measures 9.6 x 4.8 x 5.9 cm. Nabothian cysts are seen within the endoce rvical region. The endometrial echo complex is within normal limits and measures 4.4 mm. There is mi ld free fluid identified within the pelvis with internal echoes suggestive of blood products. The ov [place] were not visualized bilaterally. No adnexal masses are noted. IMPRESSION: 1. The ovaries were not able to be visualized bilaterally. Further evaluation with MRI imaging may be helpful. 2. Mild free fluid with internal echoes suggestive of blood products corresponding to the CT findin gs. .Thong Almanzar MD, Date Time Electronically viewed and signed by .Thong Almanzar MD, on 07/29/2017 05:25 .M/
[2017-07-29 11:58] VITALS: TEMP 98.1
[2017-07-29 13:45] VITALS: BP 135/87; PULSE 90; RESP 18
--- NOTE | 2017-07-29 18:57 | QN ---
Documentation Comment July 29, 2070 Hospital visit. This patient is a 47 years old 2 para 1 who came to emergency room last night complaining of abdominal pain mostly on the right side for about 2 days pain mostly was around the symphysis pubis and radiating to her left shoulder she was also complaining of slight nausea and vomiting . Her menstrual periods were always regular she is taking ibuprofen for dysmenorrhea When I saw her this afternoon her abdomen was soft .There was a slight pain on the left and right side . she states that she feels better comparing with early this morning her ultrasound study report was that her uterus was 9.6 x 4.8 x 5.2 cm. Endometrial echo complex was normal . There were small amount of free fluid within the pelvic cavity and ovaries were not visualized. Recommendation was to perform an MRI for further evaluation of the pelvic structure. I should mention that she did not authorize the pelvic ultrasound for further information. This afternoon she also did not let me to do a pelvic examination. On CAT scan there was a slight atelectasis on subsegmental area,no evidence of pleural effusion. there was an increased density over the lower abdomen with possible hemoperitoneum the uterus was anteflexed .The right ovary appeared to be diffusely enlarged heterogeneous measuring around 6.8 x 5.3 x 4.7 cm. When I examined her this afternoon she says she feels better however she does have a mild generalized abdominal tenderness no CVA tenderness as I mentioned she did not let me to do a pelvic examination to see if there is any cervical tenderness she is still n.p.o. receiving IV fluids. I discussed the matter with the radiologist who suggested to have a MRI with opaque material. This MRI will be performed tonight at 10:00. These findings will be reported 12 next laborist. End of dictation Laboratory Tests Test 07/28/17 21:20 07/29/17 07:48 White Blood Count 12.910^3/ul Red Blood Count 4.3510^6/ul Hemoglobin 11.5g/dl Hematocrit 36.6% Mean Corpuscular Volume 84.1fl Mean Corpuscular Hemoglobin 26.4pg Mean Corpuscular Hemoglobin Concent 31.4g/dl Red Cell Distribution Width 16.2% Platelet Count 20922^3/UL Mean Platelet Volume 11.7fl Neutrophils % 82.2% Lymphocytes % 12.5% Monocytes % 4.4% Eosinophils % 0.3% Basophils % 0.3% Nucleated Red Blood Cells % 0.0/100WBC Neutrophils # 10.610^3/ul Lymphocytes # 1.610^3/ul Monocytes # 0.610^3/ul Eosinophils # 0.010^3/ul Basophils # 0.010^3/ul Nucleated Red Blood Cells # 0.010^3/ul Prothrombin Time 13.4Sec Prothrombin Time Ratio 1.0 INR International Normalized Ratio 1.02 Sodium Level 143mmol/L 144mmol/L Potassium Level 3.4mmol/L 3.3mmol/L Chloride Level 109mmol/L 106mmol/L Carbon Dioxide Level 23mmol/L 25mmol/L Anion Gap 14 16 Blood Urea Nitrogen 17mg/dl 16mg/dl Creatinine 0.82mg/dl 0.72mg/dl Glucose Level 184mg/dl 167mg/dl Calcium Level 8.9mg/dl 8.6mg/dl Total Bilirubin 0.2mg/dl Direct Bilirubin 0.00mg/dl Indirect Bilirubin 0.2mg/dl Aspartate Amino Transf (AST/SGOT) 24IU/L Alanine Aminotransferase (ALT/SGPT) 31IU/L Alkaline Phosphatase 117IU/L Troponin I < 0.012ng/ml Total Protein 8.3g/dl Albumin 3.9g/dl Globulin 4.40g/dl Albumin/Globulin Ratio 0.88 Lipase 38U/L CA 19-9 Antigen 146.0U/ml CA 125 Antigen 544.0U/ml Beta HCG, Quantitative < 2.4mIU/ml Current Medications Medications (Trade) Dose Ordered Sig/Malena Route PRN Reason Start Time Stop Time Status Last Admin Dose Admin Sodium Chloride (NS) 1,000 ml @ 1,000 mls/hr Q1H STAT IV 07/28/17 22:30 07/28/17 23:29 DC 07/28/17 22:44 Hydromorphone HCl (Dilaudid) 1 mg ONCE STAT IV 07/28/17 22:30 07/28/17 22:32 DC 07/28/17 22:44 Ondansetron HCl 4 mg 4 mg ONCE STAT IV 07/28/17 22:30 07/28/17 22:32 DC 07/28/17 22:44 Sodium Chloride (NS) 100 ml @ ud STK-MED ONCE .ROUTE 07/28/17 23:42 07/28/17 23:43 DC 07/29/17 00:19 Iohexol (Omnipaque 300mg/ ml) 150 ml STK-MED ONCE .ROUTE 07/28/17 23:42 07/28/17 23:43 DC 07/29/17 00:19 Hydromorphone HCl (Dilaudid) 1 mg ONCE ONCE IV 07/29/17 00:43 07/29/17 00:45 DC 07/29/17 00:43 Ondansetron HCl (Zofran Inj) 4 mg ONCE ONCE IV 07/29/17 00:43 07/29/17 00:45 DC Ondansetron HCl 4 mg 4 mg ONCE STAT IV 07/29/17 04:17 07/29/17 04:18 DC 07/29/17 05:09 Sodium Chloride (NS) 1,000 ml @ 80 mls/hr [id number] IV 07/29/17 05:47 07/29/17 18:16 DC 07/29/17 05:47 Ondansetron HCl (Zofran Inj) 4 mg ER BRIDGE PRN IV NAUSEA AND/OR VOMITING 07/29/17 06:00 07/30/17 05:59 07/29/17 18:26 Acetaminophen (Tylenol Tab) 650 mg ER BRIDGE PRN PO MILD PAIN/FEVER 07/29/17 06:00 07/30/17 05:59 07/29/17 11:55 Hydromorphone HCl 1 mg 1 mg ONCE STAT IV 07/29/17 08:38 07/29/17 08:39 DC 07/29/17 08:41 Sodium Chloride (NS) 1,000 ml @ 125 mls/hr Q8H IV 07/29/17 18:00 07/29/17 18:20 Influenza Virus Vaccine (Fluzone) 0.5 ml ONCE ONCE IM* 07/30/17 20:00 07/30/17 20:01 Laboratory Tests Current Medications VALERIE BATES MD Jul 29, 2017 18:57 Ondansetron HCl 4 mg 4 mg ONCE STAT IV 07/28/17 22:30 07/28/17 22:32 DC 07/28/17 22:44 Sodium Chloride (NS) 100 ml @ ud STK-MED ONCE .ROUTE 07/28/17 23:42 07/28/17 23:43 DC 07/29/17 00:19 Iohexol (Omnipaque 300mg/ ml) 150 ml STK-MED ONCE .ROUTE 07/28/17 23:42 07/28/17 23:43 DC 07/29/17 00:19 Hydromorphone HCl (Dilaudid) 1 mg ONCE ONCE IV 07/29/17 00:43 07/29/17 00:45 DC 07/29/17 00:43 Ondansetron HCl (Zofran Inj) 4 mg ONCE ONCE IV 07/29/17 00:43 07/29/17 00:45 DC Ondansetron HCl 4 mg 4 mg ONCE STAT IV 07/29/17 04:17 07/29/17 04:18 DC 07/29/17 05:09 Sodium Chloride (NS) 1,000 ml @ 80 mls/hr [id number] IV 07/29/17 05:47 07/29/17 18:16 DC 07/29/17 05:47 Ondansetron HCl (Zofran Inj) 4 mg ER BRIDGE PRN IV NAUSEA AND/OR VOMITING 07/29/17 06:00 07/30/17 05:59 07/29/17 18:26 Acetaminophen (Tylenol Tab) 650 mg ER BRIDGE PRN PO MILD PAIN/FEVER 07/29/17 06:00 07/30/17 05:59 07/29/17 11:55 Hydromorphone HCl 1 mg 1 mg ONCE STAT IV 07/29/17 08:38 07/29/17 08:39 DC 07/29/17 08:41 Sodium Chloride (NS) 1,000 ml @ 125 mls/hr Q8H IV 07/29/17 18:00 07/29/17 18:20 Influenza Virus Vaccine (Fluzone) 0.5 ml ONCE ONCE IM* 07/30/17 20:00 07/30/17 20:01 VALERIE BATES MD Jul 29, 2017 18:57
[2017-07-29 19:23] VITALS: BP 136/72; RESP 22
[2017-07-29] MEDS ORDERED: HYDROmorphONE 2 MG/ML SYG IV STA (20:49)
[2017-07-29] MEDS: NS + KCL 20 MEQ 1,000 ML IV SCH (21:06)
[2017-07-30 00:27] VITALS: BP 115/65; RESP 22
--- NOTE | 2017-07-30 00:44 | RADRPT ---
PROCEDURE: MR pelvis with and without contrast CLINICAL INDICATION: Abdominal pain and vomiting times 3 days, hemoperitoneum right TECHNIQUE: MRI of the pelvis with and without contrast was performed. 20 cc of Magnevist was injec alyssa intravenously. The study is limited due to inability of patient to suspend respiration. COMPARISON: CT abdomen and pelvis with contrast of 07/28/2017 and pelvic ultrasounds of 07/29/[address] abdomen and pelvis without contrast of 05/02/2017 FINDINGS: There is appearance of a small amount of fluid in endometrial cavity. The thickness of the endometri um including the fluid equals 1.1 cm. There is appearance of diffuse thickening of the endometrial m yometrial junction zone suggestive of adenomyosis. Nabothian cysts in the cervix. The uterus measure s approximately 8 x 5 x 5.4 cm. No definite ovarian abnormality is seen. The apparent prominent righ t ovary/ right ovarian/adnexal mass seen on the CT is thought to most likely be secondary to multipl e adjacent unopacified small bowel loops and unremarkable right ovary. No abnormality of the bladder is seen. No enlarged lymph nodes are seen in the pelvis. No significant free intrapelvic fluid is seen on this study. There is appearance of bilateral Bartholin gland cysts measuring approximately 2 .2 cm on the left and 1.7 cm on the right. IMPRESSION: Patient motion limits evaluation. Small amount of fluid in the endometrial cavity. Appearance of dif fuse thickening of the endometrial myometrial junction zone suggestive of adenomyosis. No definite o varian abnormality is seen. The apparent right ovarian/adnexal mass seen on the present CT examinati on and the CT 05/02/2017 is thought to most likely be secondary to multiple immediately adjacent rodriguez pacified small bowel loops and unremarkable right ovary. However, because this is not certain, parti cularly on the postcontrast images, CT pelvis with ORAL and intravenous contrast is recommended for confirmation and to exclude a right ovarian/adnexal mass. Please see above. RPTAT: HJES .Mono Stokes MD, Date Time Electronically viewed and signed by .Mono Stokes MD, on 07/30/2017 00:44 .S/
--- NOTE | 2017-07-30 01:17 | RADRPT ---
PROCEDURE: MR Abdomen with and without contrast. CLINICAL INDICATION: Abdominal pain and vomiting times 3 days, hemoperitoneum right TECHNIQUE: MRI abdomen with and without contrast was performed on the a high-resolution, high Tesl a field strength scanner. Patient was examined both before and following the uncomplicated intraven ous injection of 20 cc of Magnevist IV contrast. Images were reviewed on a high-resolution PACS work station. Study limited due to inability of patient to suspend respiration. COMPARISON: CT abdomen and pelvis with contrast of 07/28/[address] abdomen and pelvis of 017 FINDINGS: The liver is normal in size. Mild hepatic steatosis is apparent. No liver mass lesion or intrahepa tic biliary dilatation is seen. The spleen is normal in size and homogeneous in signal intensity. T here is the appearance of splenic clefts which also appear to be present on noncontrast CT of 2016. The stomach is partially collapsed but grossly unremarkable. The gallbladder is unremarkable. The biliary tree is not dilated. No intrahepatic nor extrahepatic biliary dilatation is present. The pancreas, as visualized, is equally unremarkable. No pancreatic lesion is seen. The adrenals are unremarkable. Sub centimeter renal cysts are apparent bilaterally. No imaging follow-up of these is recommended. The aorta is of normal caliber. There is no retroperitoneal lymphadenopathy. Smal l amount of hemoperitoneum is again apparent. Mild subcutaneous edema posteriorly. Bilateral lower l obe partial atelectasis again seen. IMPRESSION: Patient motion limits evaluation. Small amount of hemoperitoneum again apparent. Mild hepatic steato sis. Bilateral lower lobe partial atelectasis again seen. RPTAT: HJES .Mono Stokes MD, MD Date Time Electronically viewed and signed by .Mono Stokes MD, MD on 07/30/2017 01:17 .S/
[2017-07-30] MEDS: HYDROmorphONE 2 MG/ML SYG IV PRN ×4 (02:23→20:48)
[2017-07-30] MEDS: NS + KCL 20 MEQ 1,000 ML IV SCH ×3 (04:00→17:32)
[2017-07-30 07:54] VITALS: BP 89/57; RESP 18
[2017-07-30] MEDS ORDERED: BARIUM SULF 2% 450 ML BTL (BERRY SMOOTHIE) PO SCH (08:30)
--- NOTE | 2017-07-30 08:55 | QN ---
Documentation Comment Abdominal pain ,SOme free fluids in pelvic and Abd cavity Stable Generalized Abd tenderness No ovarian mass by MRI ,,CT with oral and IV contrast ordered IS CONTECTED .HE IS GOING TO SEE PATIENT Patient's questions KACIE Wilson M.D. Jul 30, 2017 08:55
[2017-07-30] MEDS ORDERED: IOHEXOL 300MG/ML 150 ML BTL ONE (12:56)
[2017-07-30 14:25] VITALS: BP 120/67; RESP 18
--- NOTE | 2017-07-30 14:56 | QN ---
Documentation Comment case D/w .He will take the patient to Operating room tomorrow morning for unilateral or bilateral BSO in case of cancer KACIE WHITTINGTON M.D. Jul 30, 2017 14:56
--- NOTE | 2017-07-30 15:28 | QN ---
Documentation Comment CT imaging reviewed with ,patient most likely has a right ovarian mass and hemoperitoneum Hb is stable at 9.3 VS stable Patient is not NPO at this time .She needs to be kept NPO ,in case of significant Hb drop .A laparascopy needs to be done earlier.Serial CBC is ordered KACIE WHITTINGTON M.D. Jul 30, 2017 15:28
--- NOTE | 2017-07-30 16:35 | RADRPT ---
PROCEDURE: CT Abdomen and Pelvis with contrast. CLINICAL INDICATION: Pelvic mass TECHNIQUE: CT of the abdomen and pelvis was performed on a multi-detector scanner following the un complicated IV administration of 100 cc of Omnipaque 300. Oral contrast was given as well. Coronal and sagittal images were reformatted from the axial data set. One or more of the following dose red uction techniques were used: automated exposure control, adjustment of the mA and/or kV according to patient size, use of iterative reconstruction technique. CTDI = 22.4 mGy. DLP = 1427.87 mGy-cm. COMPARISON: CT and MRI, 07/29/2017; CT, 05/02/2017 FINDINGS: Small left pleural effusion and bibasilar atelectasis are noted. The heart size is normal, without pericardial effusion. Layering hyperdensity within the gallbladder likely represents excreted contr ast. Liver, biliary tree, pancreas, spleen, adrenal glands and kidneys are unremarkable. No urolithi asis or obstructive uropathy is identified. The stomach is grossly unremarkable. There is no abdominal aortic aneurysm or dissection. There is no retroperitoneal lymphadenopathy. The nadeen hepatis region is clear. Mild amount of ascites is present. There is no bowel obstruction, free intraperitoneal air or absces s. No diverticulosis, diverticulitis, colitis or appendicitis is identified. Urinary bladder, uterus and left adnexa are unremarkable. Indeterminate 7.0 cm ovoid mass is again seen in the right adnexa , similar in appearance to prior exams. No pelvic lymphadenopathy is identified. The surrounding osseous structures are remarkable for chronic bilateral L5 spondylolysis, without as sociated spondylolisthesis. No osteolytic or osteoblastic lesion is detected. IMPRESSION: 1. Indeterminate 7.0 cm ovoid mass is again seen in the right adnexa, similar in appearance to prio r CT and MRI exams dating back to 05/02/2017. Recent prior MRI demonstrates areas of T2 hypointensit y and precontrast T1 hyperintensity in this location, suggestive of blood products within this lesio n, possibly indicating hemorrhagic ovarian cyst or endometrioma. 2. Mild amount of ascites is present, increased from the prior CT. There is no bowel obstruction o r perforation. 3. Small left pleural effusion and bibasilar atelectasis are noted, also increased. RPTAT: AAQQ .Elie Yang MD, MD Date Time Electronically viewed and signed by .Elie Yang MD, MD on 07/30/2017 16:35 .R/
[2017-07-30] MEDS ORDERED: MAGNESIUM CITRATE 300 ML BTL PO ONE (19:00)
--- NOTE | 2017-07-30 19:13 | PN ---
Date/Time of Note Date/Time of Note DATE: 07/30/17 TIME: 19:07 Assessment/Plan VTE Prophylaxis VTE Prophylaxis Intervention: SCD's Lines/Catheters IV [facility] Peripheral IV Urinary Cath still in place: No Assessment/Plan Chief Complaint/Hosp Course pelvic mass and pain and anemia- although refused to cooperate with all exams and studies; risk of bleeding tumor or torsion Problems: Assessment/Plan A- probable torsion or bleeding neoplasm or funcrtioal cyst that bleeds continuously +;- infection;politely emphasized need for cooperation and she vented other issues p- Described laparoscopic USO most likely but cannot do definitive cancer procedure in this setting. Subjective 24 Hr Interval Summary Free Text/Dictation Seen earlier with generalized pain R>L and angry/upset/emotional /BEFORE seen. Exam/Review of Systems Vital Signs Vitals Vital Signs Date Time Temp Pulse Resp B/P Pulse Ox O2 Delivery O2 Flow Rate FiO2 07/30/17 14:25 98.0 95 18 120/67 92 07/29/17 20:50 Nasal Cannula 2.0 Intake and Output 07/29/17 07/29/17 07/30/17 15:00 23:00 07:00 Intake Total 375 ml 120 ml Output Total 600 ml Balance -225 ml 120 ml Exam Resp- clear CVS-NSR Abd0 generalized distension and pain Pelvis- Central mass and cul-de-sac tender Ext - NT Results Result Diagram: 07/30/17 1432 07/30/17 0526 Results 24 hrs Laboratory Tests Test 07/30/17 05:26 07/30/17 14:32 White Blood Count 16.5 #H 15.3 H Red Blood Count 3.83 L 3.63 L Hemoglobin 9.8 L 9.3 L Hematocrit 32.4 L 30.2 L Mean Corpuscular Volume 84.6 83.2 Mean Corpuscular Hemoglobin 25.6 L 25.6 L Mean Corpuscular Hemoglobin Concent 30.2 L 30.8 L Red Cell Distribution Width 16.8 H 16.8 H Platelet Count 189 176 Mean Platelet Volume 12.2 H 11.4 H Neutrophils % 88.8 H 87.9 H Lymphocytes % 6.4 L 7.2 L Monocytes % 3.9 4.1 Eosinophils % 0.0 0.0 Basophils % 0.2 0.1 Nucleated Red Blood Cells % 0.0 0.0 Neutrophils # 14.6 H 13.5 H Lymphocytes # 1.1 1.1 Monocytes # 0.6 0.6 Eosinophils # 0.0 0.0 Basophils # 0.0 0.0 Nucleated Red Blood Cells # 0.0 0.0 Sodium Level 142 Potassium Level 3.7 Chloride Level 108 Carbon Dioxide Level 27 Anion Gap 11 Blood Urea Nitrogen 20 Creatinine 0.88 Glucose Level 140 Calcium Level 8.2 L Medications Medications Current Medications Influenza Virus Vaccine 0.5 ml 0.5 ml ONCE ONCE IM* ; Start 07/30/17 at 20:00; Stop 07/30/17 at 20:01 Potassium Chloride/Sodium Chloride (NS-KCl 20 Meq) 1,000 ml @ 125 mls/hr Q8H IV Last administered on 07/30/17 17:32; Admin Dose 125 MLS/HR; Start at 20:00 Hydromorphone HCl (Dilaudid) 1 mg Q4H PRN IV PAIN Last administered on 12:32; Admin Dose 1 MG; Start 07/30/17 at 02:30 KIRSTIE CROSS MD Jul 30, 2017 19:13
[2017-07-30 20:00] VITALS: BP 125/58; RESP 22
[2017-07-30] MEDS ORDERED: INFLUENZA VIRUS VACCINE 0.5 ML SYG IM* ONE (20:00)
[2017-07-30 23:49] VITALS: BP 145/76; RESP 22
[2017-07-31] VITALS (19 sets, daily range): BP systolic 113–168; BP diastolic 69–106; PULSE 96–114; RESP 13–37; Ht 304.8 cm; Wt 104.0 kg
[2017-07-31] MEDS: HYDROmorphONE 2 MG/ML SYG IV PRN ×4 (02:13→21:39)
[2017-07-31] MEDS: NS + KCL 20 MEQ 1,000 ML IV SCH ×4 (02:16→15:32)
--- NOTE | 2017-07-31 08:00 | CONS ---
Date/Time of Note Date/Time of Note DATE: 07/31/17 TIME: 07:54 Consultation Date/Type/Reason Admit Date/Time Jul 29, 2017 at 06:13 Initial Consult Date 07/29/17 Type of Consultation: Anesthesiology Reason for Consultation Pt in distress Preop 24 HR Interval Summary Free Text/Dictation Came to preop holding to see patient undergoing exploratory laparoscopy by Dr. Nicholas. Pt states she is short of breath and cannot finish sentences. Monitors placed on patient shows room air Sat of 65% and confirmed. Pt placed on Oxygen nasal cannula and sat increased to 85% after some time. Placed on face mask at 10L/m and sats increased to 94%. BP 152/102. Dr Nicholas notified and Hospitalist Dr. Benito called. Discussed with Dr. Benito to transfer Pt tp ICU now to be evaluated and optimized before undergoing surgery. Exam/Review of Systems Vital Signs Vitals Vital Signs Date Time Temp Pulse Resp B/P Pulse Ox O2 Delivery O2 Flow Rate FiO2 07/31/17 06:02 98.7 104 21 168/90 98 Nasal Cannula 3.0 Intake and Output 07/30/17 07/30/17 07/31/17 15:00 23:00 07:00 Intake Total 625 ml 1740 ml 1675 ml Output Total 450 ml 480 ml Balance 625 ml 1290 ml 1195 ml Results Result Diagram: 07/31/17 0444 07/31/17 0444 Results 24 hrs Laboratory Tests Test 07/30/17 14:32 07/30/17 21:19 07/31/17 04:44 White Blood Count 15.3 H 15.0 H 14.6 H Red Blood Count 3.63 L 3.75 L 3.61 L Hemoglobin 9.3 L 9.5 L 9.5 L Hematocrit 30.2 L 31.4 L 30.7 L Mean Corpuscular Volume 83.2 83.7 85.0 Mean Corpuscular Hemoglobin 25.6 L 25.3 L 26.3 L Mean Corpuscular Hemoglobin Concent 30.8 L 30.3 L 30.9 L Red Cell Distribution Width 16.8 H 17.0 H 16.8 H Platelet Count 176 185 173 Mean Platelet Volume 11.4 H 11.7 H 11.2 H Neutrophils % 87.9 H 87.5 H 88.1 H Lymphocytes % 7.2 L 7.1 L 6.2 L Monocytes % 4.1 4.4 4.4 Eosinophils % 0.0 0.0 0.1 Basophils % 0.1 0.1 0.1 Nucleated Red Blood Cells % 0.0 0.0 0.0 Neutrophils # 13.5 H 13.1 H 12.9 H Lymphocytes # 1.1 1.1 0.9 Monocytes # 0.6 0.7 0.6 Eosinophils # 0.0 0.0 0.0 Basophils # 0.0 0.0 0.0 Nucleated Red Blood Cells # 0.0 0.0 0.0 Sodium Level 142 Potassium Level 3.7 Chloride Level 111 H Carbon Dioxide Level 26 Anion Gap 9 Blood Urea Nitrogen 20 Creatinine 0.67 Glucose Level 150 Calcium Level 8.1 L Medications Medications Current Medications Potassium Chloride/Sodium Chloride (NS-KCl 20 Meq) 1,000 ml @ 125 mls/hr Q8H IV Last administered on 07/31/17 02:16; Admin Dose 125 MLS/HR; Start at 20:00 Hydromorphone HCl (Dilaudid) 1 mg Q4H PRN IV PAIN Last administered on 02:13; Admin Dose 1 MG; Start 07/30/17 at 02:30 ALEX GABRIEL Jul 31, 2017 08:00
--- NOTE | 2017-07-31 08:40 | HPN ---
Date/Time of Note Date/Time of Note DATE: 07/31/17 TIME: 08:39 Interval H&P Admission Note Pt. seen H&P reviewed: No system changes KIRSTIE CROSS MD Jul 31, 2017 08:40
--- NOTE | 2017-07-31 09:13 | RADRPT ---
PROCEDURE: XR Chest. CLINICAL INDICATION: Shortness of breath. TECHNIQUE: Single frontal view. COMPARISON: None. FINDINGS: There is mild atelectasis at the lung bases. The lungs are otherwise clear. The heart is enlarged. There is no pleural effusion. There is no pneumothorax. IMPRESSION: 1. Mild atelectasis at the lung bases. 2. Cardiomegaly. 3. Otherwise normal chest radiograph. RPTAT: QQ .Tree Caballero MD, MD Date Time Electronically viewed and signed by .Tree Caballero MD, on 07/31/2017 09:13 .R/
--- NOTE | 2017-07-31 10:05 | QN ---
Documentation Comment unfortunately patient that is risk of sepsis is delayed due to low O2 saturation due to poor breathing due to pain; patient delayed or cancelled earlier by anesthesia and when transferred to ICU and simply given pain medication her saturation went from 65% to 94% on nasal canula. CXR noted. Discussed with hospitalist and hopefully laparoscopic USO (if confirmed needed) will be completed as soon as possible. Awaiting ORT and anesthesia. KIRSTIE CROSS MD Jul 31, 2017 10:05
--- NOTE | 2017-07-31 10:20 | QN ---
Documentation Comment Surgery is now being cancelled or delayed as possibility of PE being evaluated by KIRSTIE MAXWELL MD Jul 31, 2017 10:20
--- NOTE | 2017-07-31 10:20 | QN ---
Documentation Comment Surgery is now being cancelled or delayed as possibility of PE being evaluated by KIRSTIE MAXWELL MD Jul 31, 2017 10:20
--- NOTE | 2017-07-31 10:20 | QN ---
Documentation Comment Surgery is now being cancelled or delayed as possibility of PE being evaluated by KIRSTIE MAXWELL MD Jul 31, 2017 10:20
[2017-07-31] MEDS ORDERED: SOD CHLORIDE 0.9% 100 ML ONE (12:18)
[2017-07-31] MEDS ORDERED: IOHEXOL 100 ML ONE (12:18)
--- NOTE | 2017-07-31 12:25 | HP ---
Date/Time of Note Date/Time of Note DATE: 07/31/17 TIME: 12:16 Assessment/Plan VTE Prophylaxis VTE Prophylaxis Intervention: SCD's Lines/Catheters IV [facility] Saline Lock Urinary Cath still in place: No Assessment/Plan Chief Complaint/Hosp Course 1. Abdominal pain secondary to probable ovarian torsion versus bleeding neoplasm versus a functional cyst with persistent bleeding Plan was for laparoscopic USO today was canceled secondary to hypoxia CTA of chest now pending, if patient has no evidence of PE or any other significant findings then patient should proceed with surgery if cleared by anesthesiologist as benefits of surgery outweigh the risk 2. Acute respiratory distress secondary to pain and anxiety versus alternative etiology CTA chest to rule out PE Will let gynecology oncology know about results 3. Leukocytosis-likely reactive Check a UA to rule out UTI 4. Normocytic anemia secondary to chronic disease versus acute blood loss Monitor Check iron panel Prophylaxis: SCDs Problems: HPI/ROS Admit Date/Time Admit Date/Time Jul 29, 2017 at 06:13 Hx of Present Illness Patient is a 47-year-old female with no significant medical history, presents with 2 months of diffuse abdominal pain, and the ER CT abdomen showed probable torsion or bleeding neoplasm or functional cyst with persistent bleeding. Patient was seen by gynecology as well as gynecology oncology and plan was for laparoscopic USO today when patient was noted to be hypoxic and required supplemental O2. Surgery was canceled a concerns of hypoxia, patient was noted to be anxious and pain but even after deep inspirations she continued to be hypoxic at room air. Patient was transferred to the ICU in consultation with internal medicine was requested. Currently patient is awaiting CTA chest to rule out pulmonary embolism, chest x-ray shows only atelectasis. Patient denies any chest pain at this time. ROS Constitutional: improved, no complaints Eyes: no complaints ENT: no complaints Respiratory: no complaints Cardiovascular: no complaints Gastrointestinal: nausea, pain, vomiting Genitourinary: bleeding Musculoskeletal: back pain Skin: no complaints Neurologic: no complaints Endocrine: no complaints Lymphatic: no complaints Psychological: nl mood/affect, no complaints Immunologic: no complaints PMH/Family/Social Past Medical History Medical History: no pertinent history Family History Significant Family History: no pertinent family hx Social History Alcohol Use: none Smoking Status: Never smoker Drug Use: none Exam/Review of Systems Vital Signs Vitals Vital Signs Date Time Temp Pulse Resp B/P Pulse Ox O2 Delivery O2 Flow Rate FiO2 07/31/17 12:00 98.4 96 16 155/86 91 Nasal Cannula 6.0 Intake and Output 07/30/17 07/30/17 07/31/17 15:00 23:00 07:00 Intake Total 625 ml 1740 ml 1675 ml Output Total 450 ml 480 ml Balance 625 ml 1290 ml 1195 ml Exam Constitutional: alert Head: normocephalic Respiratory: clear to auscultation Cardiovascular: regular rate and rhythm Gastrointestinal: soft, No distended Musculoskeletal: nl extremities to inspection Labs Result Diagram: 07/31/17 0444 07/31/17 0444 Medications Medications Current Medications Potassium Chloride/Sodium Chloride (NS-KCl 20 Meq) 1,000 ml @ 125 mls/hr Q8H IV Last administered on 07/31/17 02:16; Admin Dose 125 MLS/HR; Start at 20:00 Hydromorphone HCl (Dilaudid) 1 mg Q4H PRN IV PAIN Last administered on 08:33; Admin Dose 1 MG; Start 07/30/17 at 02:30 FARZANEH GREEN Jul 31, 2017 12:25
--- NOTE | 2017-07-31 12:57 | RADRPT ---
PROCEDURE: CTA Chest with contrast and with 3-D reconstructions CLINICAL INDICATION: Pulmonary embolism TECHNIQUE: The study was performed utilizing multidetector CT scanner. Direct spiral axial section s were obtained from the thoracic inlet to the upper abdomen with the use of intravenous contrast ma terial (125 cc of Omnipaque 350). Sagittal, coronal and 3-D reformations were obtained. The images w ere reviewed on a PACS workstation. DLP 665.94 mGycm CTDIvol 7.04, 105.63, 19.81 mGy One or more of the following dose reduction techniques were used: - Automated exposure control. - Adjustment of the mA and/or kV according to patient size. - Use of iterative reconstruction technique. COMPARISON: CT abdomen/pelvis from 07/30/2017 FINDINGS: There are emboli in branches of the pulmonary artery to the right upper lobe which extend into the r ight pulmonary artery. Filling defects are also noted in branches of the pulmonary artery to the lef t lower lobe and lingula. There is stable subsegmental bibasilar atelectasis. There is no pleural fluid. There is no pneumot horax. There is mild cardiomegaly. There is no pericardial fluid. An aberrant origin of the right subclav reyna artery posterior to the esophagus is identified consistent with a diverticulum of Kommerel. Ther e are no enlarged axillary or mediastinal lymph nodes. There is mild ascites in the upper abdomen. Osseous and soft tissue structures are within normal limits. IMPRESSION: Emboli are noted in branches of the pulmonary artery to the right upper lobe, lingula, and left lowe r lobe. Stable subsegmental bibasilar atelectasis. Mild cardiomegaly. 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 Correlati on for dysphasia is recommended. These findings were discussed with the nurse taking care of the patient, Orly Mckeon, over the phone on 07/31/2017 at 12:52 PM. RPTAT: EE Physician Demetria Date Time Electronically viewed and signed by Physician Demetria on 07/31/2017 12:56 RA/
--- NOTE | 2017-07-31 13:26 | QN ---
Documentation Comment Case cancelled today due to PEs. Note, Source can be due to peripheral DVT(s) vs ip ligament thrombosis (if a torsion) vs right internal iliac/common iliac vein (due to compression of mass or torsion and growth). As surgery is needed but obviously not now an can have heparin or Lovenox and must have IVC filter before surgery with preference of laparoscopy to return to anticoagulant with minimal risk. KIRSTIE CROSS MD Jul 31, 2017 13:26
[2017-07-31] MEDS ORDERED: HEPARIN 1000 UNITS/ML 10 ML INJ IV PRN ×2 (13:30)
[2017-07-31] MEDS ORDERED: HEPARIN 1000 UNITS/ML 10 ML INJ IV ONE ×2 (13:30→15:00)
[2017-07-31] MEDS: HEPARIN 25000 UNITS/250 ML 250 ML IV SCH (13:30)
--- NOTE | 2017-07-31 14:16 | RADRPT ---
PROCEDURE: US Lower extremity Venous. CLINICAL INDICATION: Lower leg pain and swelling TECHNIQUE: Multiple sonographic images of the bilateral lower extremity deep venous system was obt ained utilizing grayscale, color-flow, compressive sonography and doppler imaging with augmentation. The images were reviewed on a PACS workstation. COMPARISON: None. FINDINGS: There is normal compressibility and flow within the bilateral common femoral, deep femoral, superfic ial femoral and popliteal veins. The deep veins the calf were incompletely visualized. There are no findings of deep venous thrombosis. IMPRESSION: No sonographic evidence for deep venous thrombosis. RPTAT: QQ .Kieran Harper MD, Date Time Electronically viewed and signed by .Kieran Harper MD, on 07/31/2017 14:16 ./
--- NOTE | 2017-07-31 14:25 | PN ---
Date/Time of Note Date/Time of Note DATE: 07/31/17 TIME: 14:13 Assessment/Plan VTE Prophylaxis VTE Prophylaxis Intervention: heparin Lines/Catheters IV Catheter Type (from Nrs): Saline Lock Urinary Cath still in place: No Assessment/Plan Chief Complaint/Hosp Course pelvic mass and pain and anemia- although refused to cooperate with all exams and studies; risk of bleeding tumor or torsion Problems: Assessment/Plan A- Pelvic mass with declined H/H and recent PE dx. P- Agree heparan and essential to have IVC filter before surgery. Will proceed when stabilized/cleared by Hospitalist, Filter in and OK with anesthesia. Subjective 24 Hr Interval Summary Free Text/Dictation seen earlier; minimal SOB and chest pain Exam/Review of Systems Vital Signs Vitals Vital Signs Date Time Temp Pulse Resp B/P Pulse Ox O2 Delivery O2 Flow Rate FiO2 07/31/17 12:00 Nasal Cannula 6.0 07/31/17 12:00 98.4 96 16 155/86 91 Intake and Output 07/30/17 07/30/17 07/31/17 15:00 23:00 07:00 Intake Total 625 ml 1740 ml 1675 ml Output Total 450 ml 480 ml Balance 625 ml 1290 ml 1195 ml Exam Resp- symmetric and minimal pain CVS- NSR Abd- generalized pain R>L no rebound Ext - NT minimal edema Rt sl > Lft Results Result Diagram: 07/31/17 0444 07/31/17 0444 Results 24 hrs Laboratory Tests Test 07/30/17 14:32 07/30/17 21:19 07/31/17 04:44 White Blood Count 15.3 H 15.0 H 14.6 H Red Blood Count 3.63 L 3.75 L 3.61 L Hemoglobin 9.3 L 9.5 L 9.5 L Hematocrit 30.2 L 31.4 L 30.7 L Mean Corpuscular Volume 83.2 83.7 85.0 Mean Corpuscular Hemoglobin 25.6 L 25.3 L 26.3 L Mean Corpuscular Hemoglobin Concent 30.8 L 30.3 L 30.9 L Red Cell Distribution Width 16.8 H 17.0 H 16.8 H Platelet Count 176 185 173 Mean Platelet Volume 11.4 H 11.7 H 11.2 H Neutrophils % 87.9 H 87.5 H 88.1 H Lymphocytes % 7.2 L 7.1 L 6.2 L Monocytes % 4.1 4.4 4.4 Eosinophils % 0.0 0.0 0.1 Basophils % 0.1 0.1 0.1 Nucleated Red Blood Cells % 0.0 0.0 0.0 Neutrophils # 13.5 H 13.1 H 12.9 H Lymphocytes # 1.1 1.1 0.9 Monocytes # 0.6 0.7 0.6 Eosinophils # 0.0 0.0 0.0 Basophils # 0.0 0.0 0.0 Nucleated Red Blood Cells # 0.0 0.0 0.0 Sodium Level 142 Potassium Level 3.7 Chloride Level 111 H Carbon Dioxide Level 26 Anion Gap 9 Blood Urea Nitrogen 20 Creatinine 0.67 Glucose Level 150 Calcium Level 8.1 L Medications Medications Current Medications Potassium Chloride/Sodium Chloride (NS-KCl 20 Meq) 1,000 ml @ 50 mls/hr Q20H IV Last administered on 07/31/17 02:16; Admin Dose 125 MLS/HR; Start at 20:00 Hydromorphone HCl (Dilaudid) 1 mg Q4H PRN IV PAIN Last administered on 08:33; Admin Dose 1 MG; Start 07/30/17 at 02:30 KIRSTIE CROSS MD Jul 31, 2017 14:24
[2017-07-31] MEDS: morphine 4 MG/ML VIAL IV PRN (20:19)
[2017-08-01] VITALS (25 sets, daily range): BP systolic 112–182; BP diastolic 80–117; PULSE 73–103; RESP 13–28
--- NOTE | 2017-08-01 00:43 | CONS ---
DATE OF ADMISSION: 07/29/2017 DATE OF CONSULTATION: REASON FOR CONSULTATION: Shortness of breath. Thank you, Dr. Benito, for this consultation. HISTORY OF PRESENT ILLNESS: This is a 47-year-old lady who has a 2 month history of diffuse abdomin al pain. Recent CT of the abdomen demonstrated possible torsion or bleeding neoplasm of cyst. Clemencia ent was transferred to the intensive care unit today for increasing shortness of breath and hypoxemi a, was evaluated by anesthesia for dyspnea with concern for possible thromboembolic disease. Emerge nt CT angiogram was performed, which confirmed bilateral pulmonary emboli. The patient currently re roe hemodynamically stable on supplemental O2, but has moderate desaturation off additional oxygen . PAST MEDICAL HISTORY: 1. Ongoing abdominal pain with mass, questionable torsion. 2. Moderate obesity. 3. Nonsmoker. 4. No prior history of chronic thromboembolic disease. MEDICATIONS: Per chart. ALLERGIES: NONE. SOCIAL HISTORY: Nonsmoker, no alcohol, no history of drug use. FAMILY HISTORY: Noncontributory. SYSTEMS REVIEW: A 12-point review of systems was negative other than that mentioned above. PHYSICAL EXAMINATION: GENERAL: Moderately obese lady, awake, alert, oriented, talking in full and complete sentences. VITAL SIGNS: Currently afebrile. Pulse is 96, blood pressure 150/80, O2 saturation 96% on 6 L nasa l cannula. NECK: Supple. No JVD or lymphadenopathy. CARDIAC: S1, S2, no added sounds or murmurs. CHEST: Diminished air entry bilaterally. ABDOMEN: Distended, tender but no guarding or rebound. Decreased bowel sounds. EXTREMITIES: No cyanosis, clubbing, 1+ edema. NEUROLOGIC: Generalized weakness, but no focal deficits. LABORATORY DATA: White count 14.6, hemoglobin 9.5, platelets 173. BUN 20, creatinine 0.67. INR wa s 1.02. DIAGNOSTIC DATA: CT abdomen and pelvis as above. CT chest, final report pending. IMPRESSION AND PLAN: 1. Acute abdomen with right adnexal mass, possible hemorrhagic ovarian cyst. 2. Acute bilateral pulmonary emboli with hypoxemia, likely submassive in nature. No hemodynamic co mpromise at present. 3. Morbid obesity. 4. Probable obstructive sleep apnea. PLAN: 1. Supplemental O2. 2. Incentive spirometry. 3. IV heparin drip. Anticoagulation for pulmonary emboli. 4. Would recommend holding off on abdominal surgery for now. If concern for intra-abdominal bleedi ng, heparin can be stopped and reversed emergently. Overall, prognosis remains guarded. The patient to remain in intensive care unit for close monitoring. 5. Echocardiogram. Rule out right heart strain, right heart failure, although not clinically evide nt. Dictated By: ANKIT VIVEROS MD SV/HERON Conf#: [id number] DID#: [id number]
[2017-08-01] MEDS: HYDROmorphONE 2 MG/ML SYG IV PRN ×4 (03:00→20:19)
[2017-08-01] MEDS: NS + KCL 20 MEQ 1,000 ML IV SCH (07:06)
[2017-08-01] MEDS ORDERED: HEPARIN 1000 UNITS/ML 10 ML INJ IV PRN (07:52)
--- NOTE | 2017-08-01 10:30 | CONS ---
Date/Time of Note Date/Time of Note DATE: 08/01/17 TIME: : Assessment/Plan Assessment/Plan Additional Assessment/Plan Assessment and recommendations; 1. Patient admitted with bilateral PEs clinically doing well on IV heparin via protocol. 2. Ovarian hemorrhagic cyst. Continue current treatment. Defer pelvic surgery for now. Consultation Date/Type/Reason Admit Date/Time Jul 29, 2017 at 06:13 Initial Consult Date 07/29/17 Type of Consultation: Pulmonary/critical care 24 HR Interval Summary Free Text/Dictation Patient's condition is stable. Denies any significant shortness of breath. Any coughing, chest pain or hemoptysis. Abdominal pain has improved. Denies any nausea vomiting. General exam; young female, currently no distress. Awake and alert. Exam/Review of Systems Vital Signs Vitals Vital Signs Date Time Temp Pulse Resp B/P Pulse Ox O2 Delivery O2 Flow Rate FiO2 08/01/17 06:00 92 14 137/90 98 Nasal Cannula 6.0 08/01/17 00:00 99.0 Intake and Output 07/31/17 07/31/17 08/01/17 15:00 23:00 07:00 Intake Total 400 ml 1054 ml 911 ml Output Total 900 ml 700 ml 200 ml Balance -500 ml 354 ml 711 ml Exam HEENT exam; supple neck, no JVD. No lymphadenopathy. Midline trachea. No thyromegaly. Patient has good dentition. Pupils are midsize and reactive to light. Chest exam; clear to auscultation. S1-S2 audible, no murmurs. Regular rhythm. Abdomen exam; protuberant. Minimally tender in the infra umbilical area. Bowel sounds audible. Extremity exam; no peripheral edema. Pulses 2+ bilaterally. No clubbing. USER INTERFACE ENGINEER exam; no focal deficit. Results Result Diagram: 08/01/17 0535 08/01/17 0536 Results 24 hrs Laboratory Tests Test 07/31/17 13:30 07/31/17 21:01 07/31/17 22:04 08/01/17 05:35 Prothrombin Time 15.1 H Prothrombin Time Ratio 1.2 INR International Normalized Ratio 1.18 Activated Partial Thromboplast Time 27.3 26.9 24.6 L 25.6 White Blood Count 9.4 # Red Blood Count 3.64 L Hemoglobin 9.2 L Hematocrit 30.7 L Mean Corpuscular Volume 84.3 Mean Corpuscular Hemoglobin 25.3 L Mean Corpuscular Hemoglobin Concent 30.0 L Red Cell Distribution Width 16.8 H Platelet Count 174 Mean Platelet Volume 11.4 H Neutrophils % 77.7 H Lymphocytes % 11.0 L Monocytes % 9.5 Eosinophils % 0.6 Basophils % 0.2 Nucleated Red Blood Cells % 0.3 H Neutrophils # 7.3 Lymphocytes # 1.0 Monocytes # 0.9 Eosinophils # 0.1 Basophils # 0.0 Nucleated Red Blood Cells # 0.0 Hemoglobin A1c 5.6 Test 08/01/17 05:36 Sodium Level 143 Potassium Level 3.6 Chloride Level 106 Carbon Dioxide Level 28 Anion Gap 13 Blood Urea Nitrogen 18 Creatinine 0.69 Glucose Level 142 Calcium Level 7.8 L Phosphorus Level 2.8 Magnesium Level 2.4 Medications Medications Current Medications Potassium Chloride/Sodium Chloride (NS-KCl 20 Meq) 1,000 ml @ 50 mls/hr Q20H IV Last administered on 08/01/17 07:06; Admin Dose 50 MLS/HR; Start at 20:00 Hydromorphone HCl (Dilaudid) 1 mg Q4H PRN IV PAIN Last administered on 09:36; Admin Dose 1 MG; Start 07/30/17 at 02:30 Simethicone (Mylicon) 80 mg Q6H PRN PO DISTENSION/GAS/BLOATING Last administered on 08/01/17 08:49; Admin Dose 80 MG; Start 07/31/17 at 14:30 Morphine Sulfate (morphine) 4 mg Q3H PRN IV PAIN LEVEL 4-7 Last administered on 07/31/17 20:19; Admin Dose 4 MG; Start 07/31/17 at 20:00 ANGELA BURTON Aug 01, 2017 10:30
--- NOTE | 2017-08-01 12:07 | RADRPT ---
Echocardiogram Report Patient Name: MAXIMUS GRANT Gender: Female Date: 1970 Study Date: 01-Aug-2017 Finisher Map And Chart: KACY Location: I Ref. Physician: ANKIT VIVEROS Quality: Technically Difficult Study Procedures: Transthoracic echocardiogram with complete 2D, M-Mode, and doppler examination. Indications: Pulmonary embolism. 2D/M Mode Doppler Measurement Value Normal Ranges Measurement Value Normal Ranges AoR Diam MM 3.1 cm AV Peak Vinicio 1.7 m/sec LVIDd 2D 4.4 3.5 - 5.6 cm AV Peak PG 11.6 mmHg LVIDs 2D 2.6 2.1 - 4.1 cm LVOT Peak Vinicio 1.0 m/sec LVPWd 2D 1.0 0.6 - 1.1 cm LVOT Peak PG 3.8 mmHg IVSd 2D 1.1 0.6 - 1.1 cm MV E Peak Vinicio 0.8 m/sec EDV 2D 87.3 cm3 MV A Peak Vinicio 0.9 m/sec ESV 2D 16.6 cm3 MV E/A 0.9 LA Dimen 2D 3.3 2.3 - 4.0 cm MV Decel Time 168 msec MV Decel [place] 5 MV E/A 0.9 PV Peak Vinicio 1.1 m/sec PV Peak PG 5.0 mmHg Findings Left Ventricle: Overall, normal left ventricular systolic function. Not all segments visualized. Normal left ventricular cavity size. Normal left ventricular wall thickness. Ejection fraction is visually estimated at 60 %. Tissue Doppler/Mitral Doppler indices are consistent with impaired relaxation (Stage I diastolic dysfunction). Right Ventricle: Normal right ventricular size. Normal right ventricular systolic function. Left Atrium: The left atrium is normal in size. Right Atrium: The right atrium is normal in size. Mitral Valve: Normal appearance of the mitral valve. No mitral valve regurgitation is seen. Aortic Valve: Normal appearance of the aortic valve. No significant aortic stenosis or insufficiency. Tricuspid Valve: Normal appearance of the tricuspid valve. There is trace tricuspid regurgitation. Pulmonic Valve: Normal pulmonic valve appearance. There is trace pulmonic regurgitation. Pericardium: Normal pericardium with no significant pericardial effusion. Aorta: Normal aortic root. IVC: Normal size and normal respiratory collapse consistent with normal right atrial pressure. Pulmonary Artery: Normal pulmonary artery size. Conclusions 1.Overall, normal left ventricular systolic function. Not all segments visualized. Normal left ventricular cavity size. Normal left ventricular wall thickness. Ejection fraction is visually estimated at 60 %. Tissue Doppler/Mitral Doppler indices are consistent with impaired relaxation (Stage I diastolic dysfunction). 2.Normal right ventricular size. Normal right ventricular systolic function. 3.The left atrium is normal in size. 4.The right atrium is normal in size. 5.No significant valvular stenosis or regurgitation seen. 6.Normal pericardium with no significant pericardial effusion. Electronically Signed By: Prince Moseley 01-Aug-2017 12:06:14 -0700 Patient Name: MAXIMUS GRANT Study Date: 01-Aug-2017 [id number]
--- NOTE | 2017-08-01 12:07 | RADRPT ---
Echocardiogram Report Patient Name: MAXIMUS GRANT Gender: Female Date: 1970 Study Date: 01-Aug-2017 Environmental Construction Engineer: KACY Location: I Ref. Physician: ANKIT VIVEROS Quality: Technically Difficult Study Procedures: Transthoracic echocardiogram with complete 2D, M-Mode, and doppler examination. Indications: Pulmonary embolism. 2D/M Mode Doppler Measurement Value Normal Ranges Measurement Value Normal Ranges AoR Diam MM 3.1 cm AV Peak Vinicio 1.7 m/sec LVIDd 2D 4.4 3.5 - 5.6 cm AV Peak PG 11.6 mmHg LVIDs 2D 2.6 2.1 - 4.1 cm LVOT Peak Vinicio 1.0 m/sec LVPWd 2D 1.0 0.6 - 1.1 cm LVOT Peak PG 3.8 mmHg IVSd 2D 1.1 0.6 - 1.1 cm MV E Peak Vinicio 0.8 m/sec EDV 2D 87.3 cm3 MV A Peak Vinicio 0.9 m/sec ESV 2D 16.6 cm3 MV E/A 0.9 LA Dimen 2D 3.3 2.3 - 4.0 cm MV Decel Time 168 msec MV Decel [place] 5 MV E/A 0.9 PV Peak Vinicio 1.1 m/sec PV Peak PG 5.0 mmHg Findings Left Ventricle: Overall, normal left ventricular systolic function. Not all segments visualized. Normal left ventricular cavity size. Normal left ventricular wall thickness. Ejection fraction is visually estimated at 60 %. Tissue Doppler/Mitral Doppler indices are consistent with impaired relaxation (Stage I diastolic dysfunction). Right Ventricle: Normal right ventricular size. Normal right ventricular systolic function. Left Atrium: The left atrium is normal in size. Right Atrium: The right atrium is normal in size. Mitral Valve: Normal appearance of the mitral valve. No mitral valve regurgitation is seen. Aortic Valve: Normal appearance of the aortic valve. No significant aortic stenosis or insufficiency. Tricuspid Valve: Normal appearance of the tricuspid valve. There is trace tricuspid regurgitation. Pulmonic Valve: Normal pulmonic valve appearance. There is trace pulmonic regurgitation. Pericardium: Normal pericardium with no significant pericardial effusion. Aorta: Normal aortic root. IVC: Normal size and normal respiratory collapse consistent with normal right atrial pressure. Pulmonary Artery: Normal pulmonary artery size. Conclusions 1.Overall, normal left ventricular systolic function. Not all segments visualized. Normal left ventricular cavity size. Normal left ventricular wall thickness. Ejection fraction is visually estimated at 60 %. Tissue Doppler/Mitral Doppler indices are consistent with impaired relaxation (Stage I diastolic dysfunction). 2.Normal right ventricular size. Normal right ventricular systolic function. 3.The left atrium is normal in size. 4.The right atrium is normal in size. 5.No significant valvular stenosis or regurgitation seen. 6.Normal pericardium with no significant pericardial effusion. Electronically Signed By: Prince Moseley 01-Aug-2017 12:06:14 -0700 Patient Name: MAXIMUS GRANT Study Date: 01-Aug-2017 [id number]
[2017-08-01] MEDS ORDERED: ONDANSETRON 4 MG INJ IV PRN (12:30)
--- NOTE | 2017-08-01 16:22 | CONS ---
Date/Time of Note Date/Time of Note DATE: 08/01/17 TIME: 15:59 Assessment/Plan Assessment/Plan Chief Complaint/Hosp Course pelvic mass and pain and anemia- although refused to cooperate with all exams and studies; risk of bleeding tumor or torsion Problems: Consultation Date/Type/Reason Admit Date/Time Jul 29, 2017 at 06:13 Initial Consult Date 07/29/17 Type of Consultation: pelvic mass; poss torsion Reason for Consultation Pt is a 47 y/o with a pelvic mass, pain, anemia and a PE with symptoms and chg in O2 saturation immediately before planned surgery. Note Doppler negative. 24 HR Interval Summary Free Text/Dictation Resp- less effort and clear/even CVS- NSR Abd- generalized tender no chg Ext- NT minimal edema Detailed Summary Additional Comments A/P - concur with treating pulmonary emboli as the priority and appreciate planned IVC filter. But note: Because patient did not cooperate with NADINE or MRI we have not ruled out TORSION as opposed to simply a bleeding/hemorrhagic ovarian cyst or tumor. The concern is that if it is a torsion delay in surgery to M/T/W to stabilize from pulmonary emboli is associated with some risk of sepsis developing. A delay of weeks would be a serious problem if it were a torsion. I attempted to offer NADINE to r/o torsion yesterday but she refused again as she did before I met her. Exam/Review of Systems Vital Signs Vitals Vital Signs Date Time Temp Pulse Resp B/P Pulse Ox O2 Delivery O2 Flow Rate FiO2 08/01/17 12:00 87 08/01/17 10:00 16 130/82 94 Nasal Cannula 3.0 08/01/17 08:00 98.7 Intake and Output 07/31/17 07/31/17 08/01/17 15:00 23:00 07:00 Intake Total 400 ml 1054 ml 984 ml Output Total 900 ml 700 ml 200 ml Balance -500 ml 354 ml 784 ml Results Result Diagram: 08/01/17 0535 08/01/17 0536 Results 24 hrs Laboratory Tests Test 07/31/17 21:01 07/31/17 22:04 08/01/17 05:35 08/01/17 05:36 Activated Partial Thromboplast Time 26.9 24.6 L 25.6 White Blood Count 9.4 # Red Blood Count 3.64 L Hemoglobin 9.2 L Hematocrit 30.7 L Mean Corpuscular Volume 84.3 Mean Corpuscular Hemoglobin 25.3 L Mean Corpuscular Hemoglobin Concent 30.0 L Red Cell Distribution Width 16.8 H Platelet Count 174 Mean Platelet Volume 11.4 H Neutrophils % 77.7 H Lymphocytes % 11.0 L Monocytes % 9.5 Eosinophils % 0.6 Basophils % 0.2 Nucleated Red Blood Cells % 0.3 H Neutrophils # 7.3 Lymphocytes # 1.0 Monocytes # 0.9 Eosinophils # 0.1 Basophils # 0.0 Nucleated Red Blood Cells # 0.0 Hemoglobin A1c 5.6 Sodium Level 143 Potassium Level 3.6 Chloride Level 106 Carbon Dioxide Level 28 Anion Gap 13 Blood Urea Nitrogen 18 Creatinine 0.69 Glucose Level 142 Calcium Level 7.8 L Phosphorus Level 2.8 Magnesium Level 2.4 Test 08/01/17 14:00 Activated Partial Thromboplast Time 109.6 *H Medications Medications Current Medications Potassium Chloride/Sodium Chloride (NS-KCl 20 Meq) 1,000 ml @ 50 mls/hr Q20H IV Last administered on 08/01/17 07:06; Admin Dose 50 MLS/HR; Start at 20:00 Hydromorphone HCl (Dilaudid) 1 mg Q4H PRN IV PAIN Last administered on 14:37; Admin Dose 1 MG; Start 07/30/17 at 02:30 Simethicone (Mylicon) 80 mg Q6H PRN PO DISTENSION/GAS/BLOATING Last administered on 08/01/17 08:49; Admin Dose 80 MG; Start 07/31/17 at 14:30 Morphine Sulfate (morphine) 4 mg Q3H PRN IV PAIN LEVEL 4-7 Last administered on 07/31/17 20:19; Admin Dose 4 MG; Start 07/31/17 at 20:00 Pantoprazole (Protonix Tab) 40 mg DAILY@06 PO ; Start 08/02/17 at 06:00 Ondansetron HCl (Zofran Inj) 4 mg Q6H PRN IV NAUSEA AND/OR VOMITING; Start at 12:30 Labetalol HCl (Labetalol) 20 mg Q4 PRN IV SBP >170; Start 08/01/17 at 14:30 KIRSTIE CROSS MD Aug 01, 2017 16:09
--- NOTE | 2017-08-01 16:41 | HP ---
DATE OF ADMISSION: 07/29/2017 VASCULAR SURGERY CONSULTATION Dear doctors: Ms. Grace is a 47-year-old female who presented to [facility] to abdominal pain, nausea and vomiting and loss of appetite over the past few days that has be en gradually worsening. Upon workup, it was identified the patient having this large 7 cm ovoid mas s in the region of the right adnexa with mild amount of ascites in the abdomen. At the same time, chris benitez was scheduled to undergo surgery with our gynecology colleagues in which it was identified julia garcia having difficulty with her respiration and shortness of breath, and upon evaluation, it was id entified patient having bilateral pulmonary artery emboli. 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 At the [facility], the patient does have shortness of breath, has some mild chest pain, denies any lower extremity pain or discomfort or swelling. The patient still does have some nausea, but denies vomiting. She denies fever or chills. REVIEW OF SYSTEMS: A 14-point review performed and negative except what is mentioned in the HPI. PAST MEDICAL HISTORY: Entails morbid obesity with BMI of 11.2, history of a soft tissue density mik t was inseparable from the uterus, extending more superiorly to the right, suspicious of a fibroid; however, no adnexal mass was evident during a CT scan that was done on 05/02/2017. History of misca rriage during 5 months and does have a history of dysmenorrhea and menorrhagia. SURGICAL HISTORY: None reported. FAMILY HISTORY: Denies any thrombotic syndrome in the family, strokes or heart attacks or sudden de ath. SOCIAL HISTORY: Denies tobacco, alcohol or illicit drug use. PHYSICAL EXAMINATION: GENERAL: Alert and oriented x3, some difficulty with breathing. HEENT: Normocephalic, atraumatic. EOMI. Mucosa moist. NECK: Supple. No carotid bruit. PULMONARY: Coarse sounds bilaterally, decreased breath sounds at the bases. CARDIOVASCULAR: S1, S2 present. No murmurs. ABDOMEN: Soft, nontender, nondistended. Bowel sounds positive. Large truncal obesity. EXTREMITIES: Lower extremities: Large legs bilaterally. Difficult to palpate the femoral pulse se condary to body habitus. Lower extremities faint pedal pulses. No significant edema identified. C apillary refill 2 to 3 seconds. Motor, sensory intact. ASSESSMENT AND PLAN: 1. Bilateral pulmonary artery emboli: It seems the patient has developed pulmonary embolism that s eems to be an unprovoked at the moment. At the moment, it is unclear the source of her emboli as th e patient denies any familial thrombotic syndromes or a long travel. The patient mentions that she has not had any changes to daily routine, and denies any herbal medications or use of oral contracep tive pills. There is concern the patient has this right adnexal mass that would need to be worked u p for a tumor. Further, there may be compression of her iliac veins with the possibility of develop ing a clot below the area of compression. 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 We will await further discussions with our multidisciplinary team. 2. Optimize vascular status (BP meds, diet, nutrition, exercise, sugar control, antiplatelets and a nticoagulation). 3. Recommend continuing with our anticoagulation with heparin drip for now. 4. Would recommend for the patient to undergo hypercoagulable workup as she has not had that in the past, as the source of emboli is unclear. 5. Discussed findings, plan and management with the patient at the bedside and she understands. Thank you for allowing us to partake in the care of your patient. Please call with any questions. Dictated By: BERNARDA FALCON/HERON Conf#: [id number] DID#: [id number]
[2017-08-01] MEDS: HEPARIN 25000 UNITS/250 ML 250 ML IV SCH (17:44)
--- NOTE | 2017-08-01 19:19 | PN ---
Date/Time of Note Date/Time of Note DATE: 08/01/17 TIME: 19:13 Assessment/Plan VTE Prophylaxis VTE Prophylaxis Intervention: heparin Lines/Catheters IV C[facility]ter Type (from [facility] Peripheral IV Urinary Cath still in place: No Assessment/Plan Chief Complaint/Hosp Course 1. Abdominal pain secondary to probable ovarian torsion versus bleeding neoplasm versus a functional cyst with persistent bleeding Plan was for laparoscopic USO yesterday but was canceled secondary to hypoxia CTA of chest showed bilateral pulmonary emboli, continue heparin drip Monitor for drop in hemoglobin in particular while on heparin as patient does appear to have a bleeding ovarian cyst or tumor, benefits of heparin drip outweigh risk of bleeding, this was discussed with patient and family Pulmonology and vascular surgery consultation appreciated, plan is for IVC filter tomorrow and surgery with gynecology oncology with Dr Nicholas on Wednesday Have consulted hematology for hypercoagulable workup 2. Acute respiratory distress secondary to bilateral pulmonary emboli Continue heparin drip 3. Leukocytosis-likely reactive WBC has normalized Check a UA to rule out UTI 4. Normocytic anemia secondary to chronic disease versus acute blood loss Monitor Check iron panel Prophylaxis: Heparin Problems: Subjective 24 Hr Interval Summary Respiratory: shortness of breath Exam/Review of Systems Vital Signs Vitals Vital Signs Date Time Temp Pulse Resp B/P Pulse Ox O2 Delivery O2 Flow Rate FiO2 08/01/17 18:00 84 26 153/96 98 Nasal Cannula 3.0 08/01/17 16:00 98.1 Intake and Output 07/31/17 07/31/17 08/01/17 15:00 23:00 07:00 Intake Total 400 ml 1054 ml 984 ml Output Total 900 ml 700 ml 200 ml Balance -500 ml 354 ml 784 ml Exam Constitutional: alert, oriented Respiratory: clear to auscultation Cardiovascular: regular rate and rhythm Gastrointestinal: soft, No distended Musculoskeletal: nl extremities to inspection Results Result Diagram: 08/01/17 0535 08/01/17 0536 Results 24 hrs Laboratory Tests Test 07/31/17 21:01 07/31/17 22:04 08/01/17 05:35 08/01/17 05:36 Activated Partial Thromboplast Time 26.9 24.6 L 25.6 White Blood Count 9.4 # Red Blood Count 3.64 L Hemoglobin 9.2 L Hematocrit 30.7 L Mean Corpuscular Volume 84.3 Mean Corpuscular Hemoglobin 25.3 L Mean Corpuscular Hemoglobin Concent 30.0 L Red Cell Distribution Width 16.8 H Platelet Count 174 Mean Platelet Volume 11.4 H Neutrophils % 77.7 H Lymphocytes % 11.0 L Monocytes % 9.5 Eosinophils % 0.6 Basophils % 0.2 Nucleated Red Blood Cells % 0.3 H Neutrophils # 7.3 Lymphocytes # 1.0 Monocytes # 0.9 Eosinophils # 0.1 Basophils # 0.0 Nucleated Red Blood Cells # 0.0 Hemoglobin A1c 5.6 Sodium Level 143 Potassium Level 3.6 Chloride Level 106 Carbon Dioxide Level 28 Anion Gap 13 Blood Urea Nitrogen 18 Creatinine 0.69 Glucose Level 142 Calcium Level 7.8 L Phosphorus Level 2.8 Magnesium Level 2.4 Test 08/01/17 14:00 Activated Partial Thromboplast Time 109.6 *H Medications Medications Current Medications Potassium Chloride/Sodium Chloride (NS-KCl 20 Meq) 1,000 ml @ 50 mls/hr Q20H IV Last administered on 08/01/17 07:06; Admin Dose 50 MLS/HR; Start at 20:00 Hydromorphone HCl (Dilaudid) 1 mg Q4H PRN IV PAIN Last administered on 14:37; Admin Dose 1 MG; Start 07/30/17 at 02:30 Simethicone (Mylicon) 80 mg Q6H PRN PO DISTENSION/GAS/BLOATING Last administered on 08/01/17 08:49; Admin Dose 80 MG; Start 07/31/17 at 14:30 Morphine Sulfate (morphine) 4 mg Q3H PRN IV PAIN LEVEL 4-7 Last administered on 07/31/17 20:19; Admin Dose 4 MG; Start 07/31/17 at 20:00 Pantoprazole (Protonix Tab) 40 mg DAILY@06 PO ; Start 08/02/17 at 06:00 Ondansetron HCl (Zofran Inj) 4 mg Q6H PRN IV NAUSEA AND/OR VOMITING; Start at 12:30 Labetalol HCl (Labetalol) 20 mg Q4 PRN IV SBP >170; Start 08/01/17 at 14:30 Mupirocin (Bactroban) 1 applic BID TOP ; Start 10/29/17 at 21:00; Stop at 22:00 FARZANEH GREEN Aug 01, 2017 19:19
[2017-08-01] MEDS: MUPIROCIN 2% 22 GM OINT TOP SCH (20:18)
--- NOTE | 2017-08-01 20:48 | CONS ---
Date/Time of Note Date/Time of Note DATE: 08/01/17 TIME: 20:30 Assessment/Plan Assessment/Plan Chief Complaint/Hosp Course bilateral pulmonary emboli WITH Acute respiratory distress MOST LIKELY 2 TO UNDERLING NEOPLASIA, CONSIDERING PELVIC MASS AND INCREASED CE 125 PT DOESN'T NEED ANY ADDITIONAL HYPERCOAG W-UP AT THIS POINT, WILL PROCEED IF NO NEOPLASIA IDENTIFIED Continue heparin drip R ADNEXAL MASS Abdominal pain secondary to probable ovarian torsion versus bleeding neoplasm versus a functional cyst with persistent bleeding Plan was for laparoscopic USO yesterday but was canceled secondary to hypoxia CTA of chest showed bilateral pulmonary emboli, continue heparin drip Monitor for drop in hemoglobin in particular while on heparin as patient does appear to have a bleeding ovarian cyst or tumor, benefits of heparin drip outweigh risk of bleeding, this was discussed with patient and family Pulmonology and vascular surgery consultation appreciated , plan is for IVC filter tomorrow surgery with gynecology oncology with Dr Nicholas on Wednesday Indeterminate 7.0 cm ovoid mass is again seen in the right adnexa, similar in appearance to prior CT and MRI exams dating back to . Recent prior MRI demonstrates areas of T2 hypointensity and precontrast T1 hyperintensity in this location, suggestive of blood products within this lesion, possibly indicating hemorrhagic ovarian cyst or endometrioma. Mild amount of ascites is present, increased from the prior CT. There is no bowel obstruction or perforation. Small left pleural effusion and bibasilar atelectasis are noted, also increased. CA 125 - 544 Leukocytosis-likely reactive WBC has normalized Check a UA to rule out UTI Normocytic anemia secondary to chronic disease versus acute blood loss Monitor Check iron panel Problems: Consultation Date/Type/Reason Admit Date/Time Jul 29, 2017 at 06:13 Date of Consultation: Aug 01, 2017 Type of Consultation: HEMEON Reason for Consultation HYPERCOAG W-UP Referring Provider: FARZANEH GREEN Constitutional: other (Patient is Drowsy due to pain medication and received.) Eyes: no complaints ENT: no complaints Respiratory: shortness of breath Cardiovascular: no complaints Gastrointestinal: nausea, pain, vomiting Genitourinary: bleeding Musculoskeletal: back pain Skin: no complaints Neurologic: no complaints Endocrine: no complaints Lymphatic: no complaints Psychological: nl mood/affect, no complaints Immunologic: no complaints Past Medical History Medical History: no pertinent history Social History Alcohol Use: none Smoking Status: Never smoker Drug Use: none Exam/Review of Systems Vital Signs Vitals Vital Signs Date Time Temp Pulse Resp B/P Pulse Ox O2 Delivery O2 Flow Rate FiO2 08/01/17 18:00 84 26 153/96 98 Nasal Cannula 3.0 08/01/17 16:00 98.1 Intake and Output 07/31/17 07/31/17 08/01/17 15:00 23:00 07:00 Intake Total 400 ml 1054 ml 984 ml Output Total 900 ml 700 ml 200 ml Balance -500 ml 354 ml 784 ml Exam Constitutional: alert, oriented Respiratory: clear to auscultation Cardiovascular: regular rate and rhythm Gastrointestinal: soft, No distended Musculoskeletal: nl extremities to inspection Results Result Diagram: 08/01/17 0535 08/01/17 0536 Results 24 hrs Laboratory Tests Test 07/31/17 21:01 07/31/17 22:04 08/01/17 05:35 08/01/17 05:36 Activated Partial Thromboplast Time 26.9 24.6 L 25.6 White Blood Count 9.4 # Red Blood Count 3.64 L Hemoglobin 9.2 L Hematocrit 30.7 L Mean Corpuscular Volume 84.3 Mean Corpuscular Hemoglobin 25.3 L Mean Corpuscular Hemoglobin Concent 30.0 L Red Cell Distribution Width 16.8 H Platelet Count 174 Mean Platelet Volume 11.4 H Neutrophils % 77.7 H Lymphocytes % 11.0 L Monocytes % 9.5 Eosinophils % 0.6 Basophils % 0.2 Nucleated Red Blood Cells % 0.3 H Neutrophils # 7.3 Lymphocytes # 1.0 Monocytes # 0.9 Eosinophils # 0.1 Basophils # 0.0 Nucleated Red Blood Cells # 0.0 Hemoglobin A1c 5.6 Sodium Level 143 Potassium Level 3.6 Chloride Level 106 Carbon Dioxide Level 28 Anion Gap 13 Blood Urea Nitrogen 18 Creatinine 0.69 Glucose Level 142 Calcium Level 7.8 L Phosphorus Level 2.8 Magnesium Level 2.4 Test 08/01/17 14:00 Activated Partial Thromboplast Time 109.6 *H Medications Medications Current Medications Potassium Chloride/Sodium Chloride (NS-KCl 20 Meq) 1,000 ml @ 50 mls/hr Q20H IV Last administered on 08/01/17t 07:06; Admin Dose 50 MLS/HR; Start at 20:00 Hydromorphone HCl (Dilaudid) 1 mg Q4H PRN IV PAIN Last administered on 14:37; Admin Dose 1 MG; Start 07/30/17 at 02:30 Simethicone (Mylicon) 80 mg Q6H PRN PO DISTENSION/GAS/BLOATING Last administered on 08/01/17 08:49; Admin Dose 80 MG; Start 07/31/17 at 14:30 Morphine Sulfate (morphine) 4 mg Q3H PRN IV PAIN LEVEL 4-7 Last administered on 07/31/17 20:19; Admin Dose 4 MG; Start 07/31/17 at 20:00 Pantoprazole (Protonix Tab) 40 mg DAILY@06 PO ; Start 08/02/17 at 06:00 Ondansetron HCl (Zofran Inj) 4 mg Q6H PRN IV NAUSEA AND/OR VOMITING; Start at 12:30 Labetalol HCl (Labetalol) 20 mg Q4 PRN IV SBP >170; Start 08/01/17 at 14:30 Mupirocin (Bactroban) 1 applic BID TOP ; Start 08/01/17 at 21:00; Stop at 22:00 Procedures Procedures [place] [id number] Radiology Main Line: [phone] DIAGNOSTIC IMAGING REPORT Patient: MAXIMUS GRANT : 1970 Age: 47 Sex: F MR #: [id number] DOS: 07/28/17 2230 Ordering MD: MARINE RAMIREZ DO Location: E/R Room/Bed: AMENDMENT: 07/29/2017 1:59:34 AM Thong Almanzar Md There are bilateral L5 pars interarticularis defects without significant anterolisthesis. There are couple of small diverticula identified within the descending and sigmoid colon without surrounding inflammatory changes. IMPRESSION: 6. Mild descending/sigmoid colon diverticulosis. 7. Bilateral L5 pars interarticularis defects. PROCEDURE: CT ABDOMEN/PELVIS WITH CONTRAST CLINICAL INDICATION: 47-year-old female with abdominal pain. TECHNIQUE: The study was performed utilizing a [employer] 64-slice CT scanner. Direct axial sections were obtained through the abdomen and pelvis with the use of 100 cc of Omnipaque-300 nonionic intravenous contrast material. Sagittal and coronal reformations were obtained. One or more of the following dose reduction techniques were utilized: automated exposure control, adjustment of the mA and/or kV according to patient's size or use of iterative reconstruction technique. The images were reviewed on a PACS workstation. CTD/ vol = 23.6 mGy; Total Exam DLP = 1474.6 mGy-cm. COMPARISON: CT abdomen/pelvis May 02, 2017; right upper quadrant ultrasound July 28, 2017. FINDINGS: There is mild bibasilar subsegmental atelectasis. There is no evidence for significant pleural effusion. There is mild free fluid surrounding the liver and spleen as well as in the lower abdomen and pelvis of increased density suggestive of a hemoperitoneum. The liver has a normal size and contour without focal areas of abnormal density or contrast enhancement. No intrahepatic nor extrahepatic biliary ductal dilatation is seen. The gallbladder demonstrates no wall thickening nor pericholecystic fluid. No biliary stones are evident. The pancreas is without areas of abnormal attenuation or contrast enhancement. This spleen is identified and has a normal size with a vertical well demarcated posteromedial defect most suggestive of a splenic cleft which appears to have been present on the patient's prior noncontrast examination but not well seen. The adrenal glands are unremarkable. The kidneys are functional bilaterally. There is a small left mid renal cyst measuring approximately 7 x 6 mm.. No hydroureteronephrosis nor nephroureterolithiasis is evident. The urinary bladder contains urine. There are mildly thickened loops of small bowel without obstruction. The appendix is visualized and is without edema or surrounding inflammatory reaction. The uterus is anteflexed. The right ovary appears to be diffusely enlarged and heterogeneous measuring approximately 6.8 x 5.3 x 4.0 cm. Note that this appears similar to the patient's prior study. The aortoiliac vessels are without aneurysmal dilatation. The osseous structures are intact. IMPRESSION: 1. Mild diffuse fluid throughout the abdomen and pelvis of increased density suggestive of a hemoperitoneum. 2. Diffusely enlarged heterogeneous right ovary. An ovarian mass and/or torsion could have this appearance. Clinical correlation and further evaluation with a pelvic ultrasound is suggested. 3. Posteromedial splenic linear defect most suggestive of a splenic cleft which appears to been present on the patient's noncontrast examination. 4. No CT evidence for appendicitis. 5. Mildly thickened loops of a small bowel without obstruction suggestive of an ileus. CALL REPORT: A call report was made to [facility] ER Dr. Ramirez on July 29, 2017 at 01:37 a.m. .Thong Almanzar MD, Date Time Electronically viewed and signed by .Thong Almanzar MD, on 07/29/2017 01:59 .M/ CC: MARINE RAMIREZ [place] [address] Radiology Main Line: [phone] DIAGNOSTIC IMAGING REPORT Patient: MAXIMUS GRANT : 1970 Age: 47 Sex: F MR #: [id number] DOS: 07/29/17 0141 Ordering MD: MARINE RAMIREZ DO Location: E/R Room/Bed: PROCEDURE: US Pelvis. CLINICAL INDICATION: Right ovary mass bleeding. Last menstrual period 2016 TECHNIQUE: Multiple sonographic images of the pelvis were obtained utilizing a transabdominal technique only. The patient refused transvaginal ultrasound. The images were reviewed on a PACS workstation. COMPARISON: CT abdomen and pelvis with contrast of 07/28/2017 FINDINGS: The uterus measures 8.4 x 4.5 x 6.3 cm and is not clearly seen. The thickness of the endometrium equals 7.4 mm. Neither ovary is seen. No adnexal mass seen. Small to moderate amount of free fluid anterior uterine fundus. IMPRESSION: Limited examination. The patient refused transvaginal ultrasound. Uterus not clearly seen. Neither ovary seen. Small to moderate amount of free fluid anterior to the uterine fundus. Please see above. RPTAT: HJES .Mono Stokes MD, MD Date Time Electronically viewed and signed by .Mono Stokes MD, MD on 07/29/2017 02:52 .S/ CC: MARINE RAMIREZ [place] [address] Radiology Main Line: [phone] DIAGNOSTIC IMAGING REPORT Patient: MAXIMUS GRANT : 1970 Age: 47 Sex: F MR #: [id number] DOS: 07/29/17 0403 Ordering MD: MARINE RAMIREZ DO Location: E/R Room/Bed: PROCEDURE: ULTRASOUND PELVIS CLINICAL INDICATION: 47-year-old female with pelvic pain. TECHNIQUE: Multiple sonographic images of the pelvis were obtained utilizing a transabdominal and endovaginal technique. The images were reviewed on a PACS workstation. COMPARISON: CT abdomen/pelvis July 29, 2017 at 12:02 a.m.; ultrasound pelvis transabdominal July 29, 2017 at 02:11 a.m. FINDINGS: The uterus is visualized and measures 9.6 x 4.8 x 5.9 cm. Nabothian cysts are seen within the endocervical region. The endometrial echo complex is within normal limits and measures 4.4 mm. There is mild free fluid identified within the pelvis with internal echoes suggestive of blood products. The ovaries were not visualized bilaterally. No adnexal masses are noted. IMPRESSION: 1. The ovaries were not able to be visualized bilaterally. Further evaluation with MRI imaging may be helpful. 2. Mild free fluid with internal echoes suggestive of blood products corresponding to the CT findings. .Thong Almanzar MD, MD Date Time Electronically viewed and signed by .Thong Almanzar MD, MD on 07/29/2017 05:25 .M/ CC: MARINE RAMIREZ DO [place] [address] Radiology Main Line: [phone] DIAGNOSTIC IMAGING REPORT Patient: MAXIMUS GRANT : 1970 Age: 47 Sex: F MR #: [id number] DOS: 07/29/17 1746 Ordering MD: VALERIE BATES MD Location: [facility] [place] Room/Bed: [facility] PROCEDURE: MR pelvis with and without contrast CLINICAL INDICATION: Abdominal pain and vomiting times 3 days, hemoperitoneum right TECHNIQUE: MRI of the pelvis with and without contrast was performed. 20 cc of Magnevist was injected intravenously. The study is limited due to inability of patient to suspend respiration. COMPARISON: CT abdomen and pelvis with contrast of 07/28/2017 and pelvic ultrasounds of 07/29/[address] abdomen and pelvis without contrast of 2016 FINDINGS: There is appearance of a small amount of fluid in endometrial cavity. The thickness of the endometrium including the fluid equals 1.1 cm. There is appearance of diffuse thickening of the endometrial myometrial junction zone suggestive of adenomyosis. Nabothian cysts in the cervix. The uterus measures approximately 8 x 5 x 5.4 cm. No definite ovarian abnormality is seen. The apparent prominent right ovary/ right ovarian/adnexal mass seen on the CT is thought to most likely be secondary to multiple adjacent unopacified small bowel loops and unremarkable right ovary. No abnormality of the bladder is seen. No enlarged lymph nodes are seen in the pelvis. No significant free intrapelvic fluid is seen on this study. There is appearance of bilateral Bartholin gland cysts measuring approximately 2.2 cm on the left and 1.7 cm on the right. IMPRESSION: Patient motion limits evaluation. Small amount of fluid in the endometrial cavity. Appearance of diffuse thickening of the endometrial myometrial junction zone suggestive of adenomyosis. No definite ovarian abnormality is seen. The apparent right ovarian/adnexal mass seen on the present CT examination and the CT 05/02/2017 is thought to most likely be secondary to multiple immediately adjacent unopacified small bowel loops and unremarkable right ovary. However, because this is not certain, particularly on the postcontrast images, CT pelvis with ORAL and intravenous contrast is recommended for confirmation and to exclude a right ovarian/adnexal mass. Please see above. RPTAT: HJES .Mono Stokes MD, MD Date Time Electronically viewed and signed by .Mono Stokes MD, MD on 07/30/2017 00:44 .S/ CC: VALERIE BATES MD [place] [address] Radiology Main Line: [phone] DIAGNOSTIC IMAGING REPORT Patient: MAXIMUS GRANT : 1970 Age: 47 Sex: F MR #: [id number] DOS: 07/30/17 0000 Ordering MD: KACIE WHITTINGTON M.D. Location: [facility] [place] Room/Bed: [facility] PROCEDURE: CT Abdomen and Pelvis with contrast. CLINICAL INDICATION: Pelvic mass TECHNIQUE: CT of the abdomen and pelvis was performed on a multi-detector scanner following the uncomplicated IV administration of 100 cc of Omnipaque 300. Oral contrast was given as well. Coronal and sagittal images were reformatted from the axial data set. One or more of the following dose reduction techniques were used: automated exposure control, adjustment of the mA and/or kV according to patient size, use of iterative reconstruction technique. CTDI = 22.4 mGy. DLP = 1427.87 mGy-cm. COMPARISON: CT and MRI, 07/29/2017; CT, 05/02/2017 FINDINGS: Small left pleural effusion and bibasilar atelectasis are noted. The heart size is normal, without pericardial effusion. Layering hyperdensity within the gallbladder likely represents excreted contrast. Liver, biliary tree, pancreas, spleen, adrenal glands and kidneys are unremarkable. No urolithiasis or obstructive uropathy is identified. The stomach is grossly unremarkable. There is no abdominal aortic aneurysm or dissection. There is no retroperitoneal lymphadenopathy. The nadeen hepatis region is clear. Mild amount of ascites is present. There is no bowel obstruction, free intraperitoneal air or abscess. No diverticulosis, diverticulitis, colitis or appendicitis is identified. Urinary bladder, uterus and left adnexa are unremarkable. Indeterminate 7.0 cm ovoid mass is again seen in the right adnexa , similar in appearance to prior exams. No pelvic lymphadenopathy is identified. The surrounding osseous structures are remarkable for chronic bilateral L5 spondylolysis, without associated spondylolisthesis. No osteolytic or osteoblastic lesion is detected. IMPRESSION: 1. Indeterminate 7.0 cm ovoid mass is again seen in the right adnexa, similar in appearance to prior CT and MRI exams dating back to 05/02/2017. Recent prior MRI demonstrates areas of T2 hypointensity and precontrast T1 hyperintensity in this location, suggestive of blood products within this lesion, possibly indicating hemorrhagic ovarian cyst or endometrioma. 2. Mild amount of ascites is present, increased from the prior CT. There is no bowel obstruction or perforation. 3. Small left pleural effusion and bibasilar atelectasis are noted, also increased. RPTAT: AAQQ .Elie Yang MD, MD Date Time Electronically viewed and signed by .Elie Yang MD, MD on 07/30/2017 16: 35 .R/ CC: KACIE WHITTINGTON M.D. [place] [address] Radiology Main Line: [phone] DIAGNOSTIC IMAGING REPORT Patient: MAXIMUS GRANT : 1970 Age: 47 Sex: F MR #: [id number] DOS: 07/31/17 0000 Ordering MD: ANKIT VIVEROS MD, [facility]: [facility] PROCEDURE: US Lower extremity Venous. CLINICAL INDICATION: Lower leg pain and swelling TECHNIQUE: Multiple sonographic images of the bilateral lower extremity deep venous system was obtained utilizing grayscale, color-flow, compressive sonography and doppler imaging with augmentation. The images were reviewed on a PACS workstation. COMPARISON: None. FINDINGS: There is normal compressibility and flow within the bilateral common femoral, deep femoral, superficial femoral and popliteal veins. The deep veins the calf were incompletely visualized. There are no findings of deep venous thrombosis. IMPRESSION: No sonographic evidence for deep venous thrombosis. RPTAT: QQ .Kieran Harper MD, MD Date Time Electronically viewed and signed by .Kieran Harper MD, MD on 07/31/2017 14:16 .M/ CC: ANKIT VIVEROS MD, [place] [address] Radiology Main Line: [phone] DIAGNOSTIC IMAGING REPORT Patient: MAXIMUS GRANT : 1970 Age: 47 Sex: F MR #: [id number] DOS: 07/31/17 0000 Ordering MD: AFRZANEH GREEN Location: [facility] PROCED[facility]: CTA Chest with contrast and with 3-D reconstructions CLINICAL INDICATION: Pulmonary embolism TECHNIQUE: The study was performed utilizing multidetector CT scanner. Direct spiral axial sections were obtained from the thoracic inlet to the upper abdomen with the use of intravenous contrast material (125 cc of Omnipaque 350) . Sagittal, coronal and 3-D reformations were obtained. The images were reviewed on a PACS workstation. DLP 665.94 mGycm CTDIvol 7.04, 105.63, 19.81 mGy One or more of the following dose reduction techniques were used: - Automated exposure control. - Adjustment of the mA and/or kV according to patient size. - Use of iterative reconstruction technique. COMPARISON: CT abdomen/pelvis from 07/30/2017 FINDINGS: There are emboli in branches of the pulmonary artery to the right upper lobe which extend into the right pulmonary artery. Filling defects are also noted in branches of the pulmonary artery to the left lower lobe and lingula. There is stable subsegmental bibasilar atelectasis. There is no pleural fluid. There is no pneumothorax. There is mild cardiomegaly. There is no pericardial fluid. An aberrant origin of the right subclavian artery posterior to the esophagus is identified consistent with a diverticulum of Kommerel. There are no enlarged axillary or mediastinal lymph nodes. There is mild ascites in the upper abdomen. Osseous and soft tissue structures are within normal limits. IMPRESSION: Emboli are noted in branches of the pulmonary artery to the right upper lobe, lingula, and left lower lobe. Stable subsegmental bibasilar atelectasis. Mild cardiomegaly. 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 Correlation for dysphasia is recommended. These findings were discussed with the nurse taking care of the patient, Orly Kenvickie, over the phone on 07/31/2017 at 12:52 PM. RPTAT: EE Physician Demetria Date Time Electronically viewed and signed by Physician Demetria on 07/31/2017 12:56 RA/ CC: FARZANEH GREEN VERA M MD Aug 01, 2017 20:41
--- NOTE | 2017-08-01 20:48 | CONS ---
Date/Time of Note Date/Time of Note DATE: 08/01/17 TIME: 20:30 Assessment/Plan Assessment/Plan Chief Complaint/Hosp Course bilateral pulmonary emboli WITH Acute respiratory distress MOST LIKELY 2 TO UNDERLING NEOPLASIA, CONSIDERING PELVIC MASS AND INCREASED CE 125 PT DOESN'T NEED ANY ADDITIONAL HYPERCOAG W-UP AT THIS POINT, WILL PROCEED IF NO NEOPLASIA IDENTIFIED Continue heparin drip R ADNEXAL MASS Abdominal pain secondary to probable ovarian torsion versus bleeding neoplasm versus a functional cyst with persistent bleeding Plan was for laparoscopic USO yesterday but was canceled secondary to hypoxia CTA of chest showed bilateral pulmonary emboli, continue heparin drip Monitor for drop in hemoglobin in particular while on heparin as patient does appear to have a bleeding ovarian cyst or tumor, benefits of heparin drip outweigh risk of bleeding, this was discussed with patient and family Pulmonology and vascular surgery consultation appreciated , plan is for IVC filter tomorrow surgery with gynecology oncology with Dr Nicholas on Wednesday Indeterminate 7.0 cm ovoid mass is again seen in the right adnexa, similar in appearance to prior CT and MRI exams dating back to . Recent prior MRI demonstrates areas of T2 hypointensity and precontrast T1 hyperintensity in this location, suggestive of blood products within this lesion, possibly indicating hemorrhagic ovarian cyst or endometrioma. Mild amount of ascites is present, increased from the prior CT. There is no bowel obstruction or perforation. Small left pleural effusion and bibasilar atelectasis are noted, also increased. CA 125 - 544 Leukocytosis-likely reactive WBC has normalized Check a UA to rule out UTI Normocytic anemia secondary to chronic disease versus acute blood loss Monitor Check iron panel Problems: Consultation Date/Type/Reason Admit Date/Time Jul 29, 2017 at 06:13 Date of Consultation: Aug 01, 2017 Type of Consultation: HEMEON Reason for Consultation HYPERCOAG W-UP Referring Provider: FARZANEH GREEN Constitutional: other (Patient is Drowsy due to pain medication and received.) Eyes: no complaints ENT: no complaints Respiratory: shortness of breath Cardiovascular: no complaints Gastrointestinal: nausea, pain, vomiting Genitourinary: bleeding Musculoskeletal: back pain Skin: no complaints Neurologic: no complaints Endocrine: no complaints Lymphatic: no complaints Psychological: nl mood/affect, no complaints Immunologic: no complaints Past Medical History Medical History: no pertinent history Social History Alcohol Use: none Smoking Status: Never smoker Drug Use: none Exam/Review of Systems Vital Signs Vitals Vital Signs Date Time Temp Pulse Resp B/P Pulse Ox O2 Delivery O2 Flow Rate FiO2 08/01/17 18:00 84 26 153/96 98 Nasal Cannula 3.0 08/01/17 16:00 98.1 Intake and Output 07/31/17 07/31/17 08/01/17 15:00 23:00 07:00 Intake Total 400 ml 1054 ml 984 ml Output Total 900 ml 700 ml 200 ml Balance -500 ml 354 ml 784 ml Exam Constitutional: alert, oriented Respiratory: clear to auscultation Cardiovascular: regular rate and rhythm Gastrointestinal: soft, No distended Musculoskeletal: nl extremities to inspection Results Result Diagram: 08/01/17 0535 08/01/17 0536 Results 24 hrs Laboratory Tests Test 07/31/17 21:01 07/31/17 22:04 08/01/17 05:35 08/01/17 05:36 Activated Partial Thromboplast Time 26.9 24.6 L 25.6 White Blood Count 9.4 # Red Blood Count 3.64 L Hemoglobin 9.2 L Hematocrit 30.7 L Mean Corpuscular Volume 84.3 Mean Corpuscular Hemoglobin 25.3 L Mean Corpuscular Hemoglobin Concent 30.0 L Red Cell Distribution Width 16.8 H Platelet Count 174 Mean Platelet Volume 11.4 H Neutrophils % 77.7 H Lymphocytes % 11.0 L Monocytes % 9.5 Eosinophils % 0.6 Basophils % 0.2 Nucleated Red Blood Cells % 0.3 H Neutrophils # 7.3 Lymphocytes # 1.0 Monocytes # 0.9 Eosinophils # 0.1 Basophils # 0.0 Nucleated Red Blood Cells # 0.0 Hemoglobin A1c 5.6 Sodium Level 143 Potassium Level 3.6 Chloride Level 106 Carbon Dioxide Level 28 Anion Gap 13 Blood Urea Nitrogen 18 Creatinine 0.69 Glucose Level 142 Calcium Level 7.8 L Phosphorus Level 2.8 Magnesium Level 2.4 Test 08/01/17 14:00 Activated Partial Thromboplast Time 109.6 *H Medications Medications Current Medications Potassium Chloride/Sodium Chloride (NS-KCl 20 Meq) 1,000 ml @ 50 mls/hr Q20H IV Last administered on 08/01/17t 07:06; Admin Dose 50 MLS/HR; Start at 20:00 Hydromorphone HCl (Dilaudid) 1 mg Q4H PRN IV PAIN Last administered on 14:37; Admin Dose 1 MG; Start 07/30/17 at 02:30 Simethicone (Mylicon) 80 mg Q6H PRN PO DISTENSION/GAS/BLOATING Last administered on 08/01/17 08:49; Admin Dose 80 MG; Start 07/31/17 at 14:30 Morphine Sulfate (morphine) 4 mg Q3H PRN IV PAIN LEVEL 4-7 Last administered on 07/31/17 20:19; Admin Dose 4 MG; Start 07/31/17 at 20:00 Pantoprazole (Protonix Tab) 40 mg DAILY@06 PO ; Start 08/02/17 at 06:00 Ondansetron HCl (Zofran Inj) 4 mg Q6H PRN IV NAUSEA AND/OR VOMITING; Start at 12:30 Labetalol HCl (Labetalol) 20 mg Q4 PRN IV SBP >170; Start 08/01/17 at 14:30 Mupirocin (Bactroban) 1 applic BID TOP ; Start 08/01/17 at 21:00; Stop at 22:00 Procedures Procedures [place] [id number] Radiology Main Line: [phone] DIAGNOSTIC IMAGING REPORT Patient: MAXIMUS GRANT : 1970 Age: 47 Sex: F MR #: [id number] DOS: 07/28/17 2230 Ordering MD: MARINE RAMIREZ DO Location: E/R Room/Bed: AMENDMENT: 07/29/2017 1:59:34 AM Thong Almanzar Md There are bilateral L5 pars interarticularis defects without significant anterolisthesis. There are couple of small diverticula identified within the descending and sigmoid colon without surrounding inflammatory changes. IMPRESSION: 6. Mild descending/sigmoid colon diverticulosis. 7. Bilateral L5 pars interarticularis defects. PROCEDURE: CT ABDOMEN/PELVIS WITH CONTRAST CLINICAL INDICATION: 47-year-old female with abdominal pain. TECHNIQUE: The study was performed utilizing a [employer]T 64-slice CT scanner. Direct axial sections were obtained through the abdomen and pelvis with the use of 100 cc of Omnipaque-300 nonionic intravenous contrast material. Sagittal and coronal reformations were obtained. One or more of the following dose reduction techniques were utilized: automated exposure control, adjustment of the mA and/or kV according to patient's size or use of iterative reconstruction technique. The images were reviewed on a PACS workstation. CTD/ vol = 23.6 mGy; Total Exam DLP = 1474.6 mGy-cm. COMPARISON: CT abdomen/pelvis May 02, 2017; right upper quadrant ultrasound July 28, 2017. FINDINGS: There is mild bibasilar subsegmental atelectasis. There is no evidence for significant pleural effusion. There is mild free fluid surrounding the liver and spleen as well as in the lower abdomen and pelvis of increased density suggestive of a hemoperitoneum. The liver has a normal size and contour without focal areas of abnormal density or contrast enhancement. No intrahepatic nor extrahepatic biliary ductal dilatation is seen. The gallbladder demonstrates no wall thickening nor pericholecystic fluid. No biliary stones are evident. The pancreas is without areas of abnormal attenuation or contrast enhancement. This spleen is identified and has a normal size with a vertical well demarcated posteromedial defect most suggestive of a splenic cleft which appears to have been present on the patient's prior noncontrast examination but not well seen. The adrenal glands are unremarkable. The kidneys are functional bilaterally. There is a small left mid renal cyst measuring approximately 7 x 6 mm.. No hydroureteronephrosis nor nephroureterolithiasis is evident. The urinary bladder contains urine. There are mildly thickened loops of small bowel without obstruction. The appendix is visualized and is without edema or surrounding inflammatory reaction. The uterus is anteflexed. The right ovary appears to be diffusely enlarged and heterogeneous measuring approximately 6.8 x 5.3 x 4.0 cm. Note that this appears similar to the patient's prior study. The aortoiliac vessels are without aneurysmal dilatation. The osseous structures are intact. IMPRESSION: 1. Mild diffuse fluid throughout the abdomen and pelvis of increased density suggestive of a hemoperitoneum. 2. Diffusely enlarged heterogeneous right ovary. An ovarian mass and/or torsion could have this appearance. Clinical correlation and further evaluation with a pelvic ultrasound is suggested. 3. Posteromedial splenic linear defect most suggestive of a splenic cleft which appears to been present on the patient's noncontrast examination. 4. No CT evidence for appendicitis. 5. Mildly thickened loops of a small bowel without obstruction suggestive of an ileus. CALL REPORT: A call report was made to [facility] ER Dr. Ramirez on July 29, 2017 at 01:37 a.m. .Thong Almanzar MD, Date Time Electronically viewed and signed by .Thong Almanzar MD, on 07/29/2017 01:59 .M/ CC: MARINE RAMIREZ [place] [address] Radiology Main Line: [phone] DIAGNOSTIC IMAGING REPORT Patient: MAXIMUS GRANT : 1970 Age: 47 Sex: F MR #: [id number] DOS: 07/29/17 0141 Ordering MD: MARINE RAMIREZ DO Location: E/R Room/Bed: PROCEDURE: US Pelvis. CLINICAL INDICATION: Right ovary mass bleeding. Last menstrual period 2016 TECHNIQUE: Multiple sonographic images of the pelvis were obtained utilizing a transabdominal technique only. The patient refused transvaginal ultrasound. The images were reviewed on a PACS workstation. COMPARISON: CT abdomen and pelvis with contrast of 07/28/2017 FINDINGS: The uterus measures 8.4 x 4.5 x 6.3 cm and is not clearly seen. The thickness of the endometrium equals 7.4 mm. Neither ovary is seen. No adnexal mass seen. Small to moderate amount of free fluid anterior uterine fundus. IMPRESSION: Limited examination. The patient refused transvaginal ultrasound. Uterus not clearly seen. Neither ovary seen. Small to moderate amount of free fluid anterior to the uterine fundus. Please see above. RPTAT: HJES .Mono Stokes MD, MD Date Time Electronically viewed and signed by .Mono Stokes MD, MD on 07/29/2017 02:52 .S/ CC: MARINE RAMIREZ [place] [address] Radiology Main Line: [phone] DIAGNOSTIC IMAGING REPORT Patient: MAXIMUS GRANT : 1970 Age: 47 Sex: F MR #: [id number] DOS: 07/29/17 0403 Ordering MD: MARINE RAMIREZ DO Location: E/R Room/Bed: PROCEDURE: ULTRASOUND PELVIS CLINICAL INDICATION: 47-year-old female with pelvic pain. TECHNIQUE: Multiple sonographic images of the pelvis were obtained utilizing a transabdominal and endovaginal technique. The images were reviewed on a PACS workstation. COMPARISON: CT abdomen/pelvis July 29, 2017 at 12:02 a.m.; ultrasound pelvis transabdominal July 29, 2017 at 02:11 a.m. FINDINGS: The uterus is visualized and measures 9.6 x 4.8 x 5.9 cm. Nabothian cysts are seen within the endocervical region. The endometrial echo complex is within normal limits and measures 4.4 mm. There is mild free fluid identified within the pelvis with internal echoes suggestive of blood products. The ovaries were not visualized bilaterally. No adnexal masses are noted. IMPRESSION: 1. The ovaries were not able to be visualized bilaterally. Further evaluation with MRI imaging may be helpful. 2. Mild free fluid with internal echoes suggestive of blood products corresponding to the CT findings. .Thong Almanzar MD, MD Date Time Electronically viewed and signed by .Thong Almanzar MD, MD on 07/29/2017 05:25 .M/ CC: MARINE RAMIREZ DO [place] [address] Radiology Main Line: [phone] DIAGNOSTIC IMAGING REPORT Patient: MAXIUMS GRANT : 1970 Age: 47 Sex: F MR #: [id number] DOS: 07/29/17 1746 Ordering MD: VALERIE BATES MD Location: [facility] [place], [place] Room/Bed: [facility] PROCEDURE: MR pelvis with and without contrast CLINICAL INDICATION: Abdominal pain and vomiting times 3 days, hemoperitoneum right TECHNIQUE: MRI of the pelvis with and without contrast was performed. 20 cc of Magnevist was injected intravenously. The study is limited due to inability of patient to suspend respiration. COMPARISON: CT abdomen and pelvis with contrast of 07/28/2017 and pelvic ultrasounds of 07/29/[address] abdomen and pelvis without contrast of 2016 FINDINGS: There is appearance of a small amount of fluid in endometrial cavity. The thickness of the endometrium including the fluid equals 1.1 cm. There is appearance of diffuse thickening of the endometrial myometrial junction zone suggestive of adenomyosis. Nabothian cysts in the cervix. The uterus measures approximately 8 x 5 x 5.4 cm. No definite ovarian abnormality is seen. The apparent prominent right ovary/ right ovarian/adnexal mass seen on the CT is thought to most likely be secondary to multiple adjacent unopacified small bowel loops and unremarkable right ovary. No abnormality of the bladder is seen. No enlarged lymph nodes are seen in the pelvis. No significant free intrapelvic fluid is seen on this study. There is appearance of bilateral Bartholin gland cysts measuring approximately 2.2 cm on the left and 1.7 cm on the right. IMPRESSION: Patient motion limits evaluation. Small amount of fluid in the endometrial cavity. Appearance of diffuse thickening of the endometrial myometrial junction zone suggestive of adenomyosis. No definite ovarian abnormality is seen. The apparent right ovarian/adnexal mass seen on the present CT examination and the CT 05/02/2017 is thought to most likely be secondary to multiple immediately adjacent unopacified small bowel loops and unremarkable right ovary. However, because this is not certain, particularly on the postcontrast images, CT pelvis with ORAL and intravenous contrast is recommended for confirmation and to exclude a right ovarian/adnexal mass. Please see above. RPTAT: HJES .Mono Stokes MD, MD Date Time Electronically viewed and signed by .Mono Stokes MD, MD on 07/30/2017 00:44 .S/ CC: VALERIE BATES MD [place] [address] Radiology Main Line: [phone] DIAGNOSTIC IMAGING REPORT Patient: MAXIMUS GRANT : 1970 Age: 47 Sex: F MR #: [id number] DOS: 07/30/17 0000 Ordering MD: KACIE WHITTINGTON M.D. Location: [facility] [place], [place] Room/Bed: [facility] PROCEDURE: CT Abdomen and Pelvis with contrast. CLINICAL INDICATION: Pelvic mass TECHNIQUE: CT of the abdomen and pelvis was performed on a multi-detector scanner following the uncomplicated IV administration of 100 cc of Omnipaque 300. Oral contrast was given as well. Coronal and sagittal images were reformatted from the axial data set. One or more of the following dose reduction techniques were used: automated exposure control, adjustment of the mA and/or kV according to patient size, use of iterative reconstruction technique. CTDI = 22.4 mGy. DLP = 1427.87 mGy-cm. COMPARISON: CT and MRI, 07/29/2017; CT, 05/02/2017 FINDINGS: Small left pleural effusion and bibasilar atelectasis are noted. The heart size is normal, without pericardial effusion. Layering hyperdensity within the gallbladder likely represents excreted contrast. Liver, biliary tree, pancreas, spleen, adrenal glands and kidneys are unremarkable. No urolithiasis or obstructive uropathy is identified. The stomach is grossly unremarkable. There is no abdominal aortic aneurysm or dissection. There is no retroperitoneal lymphadenopathy. The nadeen hepatis region is clear. Mild amount of ascites is present. There is no bowel obstruction, free intraperitoneal air or abscess. No diverticulosis, diverticulitis, colitis or appendicitis is identified. Urinary bladder, uterus and left adnexa are unremarkable. Indeterminate 7.0 cm ovoid mass is again seen in the right adnexa , similar in appearance to prior exams. No pelvic lymphadenopathy is identified. The surrounding osseous structures are remarkable for chronic bilateral L5 spondylolysis, without associated spondylolisthesis. No osteolytic or osteoblastic lesion is detected. IMPRESSION: 1. Indeterminate 7.0 cm ovoid mass is again seen in the right adnexa, similar in appearance to prior CT and MRI exams dating back to 05/02/2017. Recent prior MRI demonstrates areas of T2 hypointensity and precontrast T1 hyperintensity in this location, suggestive of blood products within this lesion, possibly indicating hemorrhagic ovarian cyst or endometrioma. 2. Mild amount of ascites is present, increased from the prior CT. There is no bowel obstruction or perforation. 3. Small left pleural effusion and bibasilar atelectasis are noted, also increased. RPTAT: AAQQ .Elie Yang MD, MD Date Time Electronically viewed and signed by .Elie Yang MD, MD on 07/30/2017 16: 35 .R/ CC: KACIE WHITTINGTON M.D. [place] [address] Radiology Main Line: [phone] DIAGNOSTIC IMAGING REPORT Patient: MAXIMUS GRANT : 1970 Age: 47 Sex: F MR #: [id number] DOS: 07/31/17 0000 Ordering MD: ANKIT VIVEROS MD, [facility] Location: ICU [facility] PROCEDURE: US Lower extremity Venous. CLINICAL INDICATION: Lower leg pain and swelling TECHNIQUE: Multiple sonographic images of the bilateral lower extremity deep venous system was obtained utilizing grayscale, color-flow, compressive sonography and doppler imaging with augmentation. The images were reviewed on a PACS workstation. COMPARISON: None. FINDINGS: There is normal compressibility and flow within the bilateral common femoral, deep femoral, superficial femoral and popliteal veins. The deep veins the calf were incompletely visualized. There are no findings of deep venous thrombosis. IMPRESSION: No sonographic evidence for deep venous thrombosis. RPTAT: QQ .Kieran Harper MD, MD Date Time Electronically viewed and signed by .Kieran Harper MD, MD on 07/31/2017 14:16 .M/ CC: ANKIT VIVEROS MD, [place] [address] Radiology Main Line: [phone] DIAGNOSTIC IMAGING REPORT Patient: MAXIMUS GRANT : 1970 Age: 47 Sex: F MR #: [id number] DOS: 07/31/17 0000 Ordering MD: FARZANEH GREEN Location: ICU [facility] PROCEDURE: CTA Chest with contrast and with 3-D reconstructions CLINICAL INDICATION: Pulmonary embolism TECHNIQUE: The study was performed utilizing multidetector CT scanner. Direct spiral axial sections were obtained from the thoracic inlet to the upper abdomen with the use of intravenous contrast material (125 cc of Omnipaque 350) . Sagittal, coronal and 3-D reformations were obtained. The images were reviewed on a PACS workstation. DLP 665.94 mGycm CTDIvol 7.04, 105.63, 19.81 mGy One or more of the following dose reduction techniques were used: - Automated exposure control. - Adjustment of the mA and/or kV according to patient size. - Use of iterative reconstruction technique. COMPARISON: CT abdomen/pelvis from 07/30/2017 FINDINGS: There are emboli in branches of the pulmonary artery to the right upper lobe which extend into the right pulmonary artery. Filling defects are also noted in branches of the pulmonary artery to the left lower lobe and lingula. There is stable subsegmental bibasilar atelectasis. There is no pleural fluid. There is no pneumothorax. There is mild cardiomegaly. There is no pericardial fluid. An aberrant origin of the right subclavian artery posterior to the esophagus is identified consistent with a diverticulum of Kommerel. There are no enlarged axillary or mediastinal lymph nodes. There is mild ascites in the upper abdomen. Osseous and soft tissue structures are within normal limits. IMPRESSION: Emboli are noted in branches of the pulmonary artery to the right upper lobe, lingula, and left lower lobe. Stable subsegmental bibasilar atelectasis. Mild cardiomegaly. 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 Correlation for dysphasia is recommended. These findings were discussed with the nurse taking care of the patient, Orly Kenvickie, over the phone on 07/31/2017 at 12:52 PM. RPTAT: EE Physician Demetria Date Time Electronically viewed and signed by Physician Demetria on 07/31/2017 12:56 RA/ CC: FARZANEH GREEN VERA M MD Aug 01, 2017 20:41
--- NOTE | 2017-08-01 20:48 | CONS ---
Date/Time of Note Date/Time of Note DATE: 08/01/17 TIME: 20:30 Assessment/Plan Assessment/Plan Chief Complaint/Hosp Course bilateral pulmonary emboli WITH Acute respiratory distress MOST LIKELY 2 TO UNDERLING NEOPLASIA, CONSIDERING PELVIC MASS AND INCREASED CE 125 PT DOESN'T NEED ANY ADDITIONAL HYPERCOAG W-UP AT THIS POINT, WILL PROCEED IF NO NEOPLASIA IDENTIFIED Continue heparin drip R ADNEXAL MASS Abdominal pain secondary to probable ovarian torsion versus bleeding neoplasm versus a functional cyst with persistent bleeding Plan was for laparoscopic USO yesterday but was canceled secondary to hypoxia CTA of chest showed bilateral pulmonary emboli, continue heparin drip Monitor for drop in hemoglobin in particular while on heparin as patient does appear to have a bleeding ovarian cyst or tumor, benefits of heparin drip outweigh risk of bleeding, this was discussed with patient and family Pulmonology and vascular surgery consultation appreciated , plan is for IVC filter tomorrow surgery with gynecology oncology with Dr Nicholas on Wednesday Indeterminate 7.0 cm ovoid mass is again seen in the right adnexa, similar in appearance to prior CT and MRI exams dating back to . Recent prior MRI demonstrates areas of T2 hypointensity and precontrast T1 hyperintensity in this location, suggestive of blood products within this lesion, possibly indicating hemorrhagic ovarian cyst or endometrioma. Mild amount of ascites is present, increased from the prior CT. There is no bowel obstruction or perforation. Small left pleural effusion and bibasilar atelectasis are noted, also increased. CA 125 - 544 Leukocytosis-likely reactive WBC has normalized Check a UA to rule out UTI Normocytic anemia secondary to chronic disease versus acute blood loss Monitor Check iron panel Problems: Consultation Date/Type/Reason Admit Date/Time Jul 29, 2017 at 06:13 Date of Consultation: Aug 01, 2017 Type of Consultation: HEMEON Reason for Consultation HYPERCOAG W-UP Referring Provider: FARZANEH GREEN Constitutional: other (Patient is Drowsy due to pain medication and received.) Eyes: no complaints ENT: no complaints Respiratory: shortness of breath Cardiovascular: no complaints Gastrointestinal: nausea, pain, vomiting Genitourinary: bleeding Musculoskeletal: back pain Skin: no complaints Neurologic: no complaints Endocrine: no complaints Lymphatic: no complaints Psychological: nl mood/affect, no complaints Immunologic: no complaints Past Medical History Medical History: no pertinent history Social History Alcohol Use: none Smoking Status: Never smoker Drug Use: none Exam/Review of Systems Vital Signs Vitals Vital Signs Date Time Temp Pulse Resp B/P Pulse Ox O2 Delivery O2 Flow Rate FiO2 08/01/17 18:00 84 26 153/96 98 Nasal Cannula 3.0 08/01/17 16:00 98.1 Intake and Output 07/31/17 07/31/17 08/01/17 15:00 23:00 07:00 Intake Total 400 ml 1054 ml 984 ml Output Total 900 ml 700 ml 200 ml Balance -500 ml 354 ml 784 ml Exam Constitutional: alert, oriented Respiratory: clear to auscultation Cardiovascular: regular rate and rhythm Gastrointestinal: soft, No distended Musculoskeletal: nl extremities to inspection Results Result Diagram: 08/01/17 0535 08/01/17 0536 Results 24 hrs Laboratory Tests Test 07/31/17 21:01 07/31/17 22:04 08/01/17 05:35 08/01/17 05:36 Activated Partial Thromboplast Time 26.9 24.6 L 25.6 White Blood Count 9.4 # Red Blood Count 3.64 L Hemoglobin 9.2 L Hematocrit 30.7 L Mean Corpuscular Volume 84.3 Mean Corpuscular Hemoglobin 25.3 L Mean Corpuscular Hemoglobin Concent 30.0 L Red Cell Distribution Width 16.8 H Platelet Count 174 Mean Platelet Volume 11.4 H Neutrophils % 77.7 H Lymphocytes % 11.0 L Monocytes % 9.5 Eosinophils % 0.6 Basophils % 0.2 Nucleated Red Blood Cells % 0.3 H Neutrophils # 7.3 Lymphocytes # 1.0 Monocytes # 0.9 Eosinophils # 0.1 Basophils # 0.0 Nucleated Red Blood Cells # 0.0 Hemoglobin A1c 5.6 Sodium Level 143 Potassium Level 3.6 Chloride Level 106 Carbon Dioxide Level 28 Anion Gap 13 Blood Urea Nitrogen 18 Creatinine 0.69 Glucose Level 142 Calcium Level 7.8 L Phosphorus Level 2.8 Magnesium Level 2.4 Test 08/01/17 14:00 Activated Partial Thromboplast Time 109.6 *H Medications Medications Current Medications Potassium Chloride/Sodium Chloride (NS-KCl 20 Meq) 1,000 ml @ 50 mls/hr Q20H IV Last administered on 08/01/17t 07:06; Admin Dose 50 MLS/HR; Start at 20:00 Hydromorphone HCl (Dilaudid) 1 mg Q4H PRN IV PAIN Last administered on 14:37; Admin Dose 1 MG; Start 07/30/17 at 02:30 Simethicone (Mylicon) 80 mg Q6H PRN PO DISTENSION/GAS/BLOATING Last administered on 08/01/17 08:49; Admin Dose 80 MG; Start 07/31/17 at 14:30 Morphine Sulfate (morphine) 4 mg Q3H PRN IV PAIN LEVEL 4-7 Last administered on 07/31/17 20:19; Admin Dose 4 MG; Start 07/31/17 at 20:00 Pantoprazole (Protonix Tab) 40 mg DAILY@06 PO ; Start 08/02/17 at 06:00 Ondansetron HCl (Zofran Inj) 4 mg Q6H PRN IV NAUSEA AND/OR VOMITING; Start at 12:30 Labetalol HCl (Labetalol) 20 mg Q4 PRN IV SBP >170; Start 08/01/17 at 14:30 Mupirocin (Bactroban) 1 applic BID TOP ; Start 08/01/17 at 21:00; Stop at 22:00 Procedures Procedures [place] [address] Radiology Main Line: [phone] DIAGNOSTIC IMAGING REPORT Patient: MAXIMUS GRANT : 1970 Age: 47 Sex: F MR #: [id number] DOS: 07/28/17 2230 Ordering MD: MARINE RAMIREZ DO Location: E/R Room/Bed: AMENDMENT: 07/29/2017 1:59:34 AM Thong Almanzar Md There are bilateral L5 pars interarticularis defects without significant anterolisthesis. There are couple of small diverticula identified within the descending and sigmoid colon without surrounding inflammatory changes. IMPRESSION: 6. Mild descending/sigmoid colon diverticulosis. 7. Bilateral L5 pars interarticularis defects. PROCEDURE: CT ABDOMEN/PELVIS WITH CONTRAST CLINICAL INDICATION: 47-year-old female with abdominal pain. TECHNIQUE: The study was performed utilizing a [employer] 64-slice CT scanner. Direct axial sections were obtained through the abdomen and pelvis with the use of 100 cc of Omnipaque-300 nonionic intravenous contrast material. Sagittal and coronal reformations were obtained. One or more of the following dose reduction techniques were utilized: automated exposure control, adjustment of the mA and/or kV according to patient's size or use of iterative reconstruction technique. The images were reviewed on a PACS workstation. CTD/ vol = 23.6 mGy; Total Exam DLP = 1474.6 mGy-cm. COMPARISON: CT abdomen/pelvis May 02, 2017; right upper quadrant ultrasound July 28, 2017. FINDINGS: There is mild bibasilar subsegmental atelectasis. There is no evidence for significant pleural effusion. There is mild free fluid surrounding the liver and spleen as well as in the lower abdomen and pelvis of increased density suggestive of a hemoperitoneum. The liver has a normal size and contour without focal areas of abnormal density or contrast enhancement. No intrahepatic nor extrahepatic biliary ductal dilatation is seen. The gallbladder demonstrates no wall thickening nor pericholecystic fluid. No biliary stones are evident. The pancreas is without areas of abnormal attenuation or contrast enhancement. This spleen is identified and has a normal size with a vertical well demarcated posteromedial defect most suggestive of a splenic cleft which appears to have been present on the patient's prior noncontrast examination but not well seen. The adrenal glands are unremarkable. The kidneys are functional bilaterally. There is a small left mid renal cyst measuring approximately 7 x 6 mm.. No hydroureteronephrosis nor nephroureterolithiasis is evident. The urinary bladder contains urine. There are mildly thickened loops of small bowel without obstruction. The appendix is visualized and is without edema or surrounding inflammatory reaction. The uterus is anteflexed. The right ovary appears to be diffusely enlarged and heterogeneous measuring approximately 6.8 x 5.3 x 4.0 cm. Note that this appears similar to the patient's prior study. The aortoiliac vessels are without aneurysmal dilatation. The osseous structures are intact. IMPRESSION: 1. Mild diffuse fluid throughout the abdomen and pelvis of increased density suggestive of a hemoperitoneum. 2. Diffusely enlarged heterogeneous right ovary. An ovarian mass and/or torsion could have this appearance. Clinical correlation and further evaluation with a pelvic ultrasound is suggested. 3. Posteromedial splenic linear defect most suggestive of a splenic cleft which appears to been present on the patient's noncontrast examination. 4. No CT evidence for appendicitis. 5. Mildly thickened loops of a small bowel without obstruction suggestive of an ileus. CALL REPORT: A call report was made to [facility] ER Dr. Ramirez on July 29, 2017 at 01:37 a.m. .Thong Almanzar MD, Date Time Electronically viewed and signed by .Thong Almanzar MD, on 07/29/2017 01:59 .M/ CC: MARINE RAMIREZ [place] [address] Radiology Main Line: [phone] DIAGNOSTIC IMAGING REPORT Patient: MAXIMUS GRANT : 1970 Age: 47 Sex: F MR #: [id number] DOS: 07/29/17 0141 Ordering MD: MARINE RAMIREZ DO Location: E/R Room/Bed: PROCEDURE: US Pelvis. CLINICAL INDICATION: Right ovary mass bleeding. Last menstrual period 2016 TECHNIQUE: Multiple sonographic images of the pelvis were obtained utilizing a transabdominal technique only. The patient refused transvaginal ultrasound. The images were reviewed on a PACS workstation. COMPARISON: CT abdomen and pelvis with contrast of 07/28/2017 FINDINGS: The uterus measures 8.4 x 4.5 x 6.3 cm and is not clearly seen. The thickness of the endometrium equals 7.4 mm. Neither ovary is seen. No adnexal mass seen. Small to moderate amount of free fluid anterior uterine fundus. IMPRESSION: Limited examination. The patient refused transvaginal ultrasound. Uterus not clearly seen. Neither ovary seen. Small to moderate amount of free fluid anterior to the uterine fundus. Please see above. RPTAT: HJES .Mono Stokes MD, MD Date Time Electronically viewed and signed by .Mono Stokes MD, MD on 07/29/2017 02:52 .S/ CC: MARINE RAMIREZ [place] [address] Radiology Main Line: [phone] DIAGNOSTIC IMAGING REPORT Patient: MAXIMUS GRANT : 1970 Age: 47 Sex: F MR #: [id number] DOS: 07/29/17 0403 Ordering MD: MARINE RAMIREZ DO Location: E/R Room/Bed: PROCEDURE: ULTRASOUND PELVIS CLINICAL INDICATION: 47-year-old female with pelvic pain. TECHNIQUE: Multiple sonographic images of the pelvis were obtained utilizing a transabdominal and endovaginal technique. The images were reviewed on a PACS workstation. COMPARISON: CT abdomen/pelvis July 29, 2017 at 12:02 a.m.; ultrasound pelvis transabdominal July 29, 2017 at 02:11 a.m. FINDINGS: The uterus is visualized and measures 9.6 x 4.8 x 5.9 cm. Nabothian cysts are seen within the endocervical region. The endometrial echo complex is within normal limits and measures 4.4 mm. There is mild free fluid identified within the pelvis with internal echoes suggestive of blood products. The ovaries were not visualized bilaterally. No adnexal masses are noted. IMPRESSION: 1. The ovaries were not able to be visualized bilaterally. Further evaluation with MRI imaging may be helpful. 2. Mild free fluid with internal echoes suggestive of blood products corresponding to the CT findings. .Thong Almanzar MD, MD Date Time Electronically viewed and signed by .Thong Almanzar MD, MD on 07/29/2017 05:25 .M/ CC: MARINE RAMIREZ DO [place] [address] Radiology Main Line: [phone] DIAGNOSTIC IMAGING REPORT Patient: MAXIMUS GRANT : 1970 Age: 47 Sex: F MR #: [id number] DOS: 07/29/17 1746 Ordering MD: VALERIE BATES MD Location: [facility] [place] Room/Bed: [facility] PROCEDURE: MR pelvis with and without contrast CLINICAL INDICATION: Abdominal pain and vomiting times 3 days, hemoperitoneum right TECHNIQUE: MRI of the pelvis with and without contrast was performed. 20 cc of Magnevist was injected intravenously. The study is limited due to inability of patient to suspend respiration. COMPARISON: CT abdomen and pelvis with contrast of 07/28/2017 and pelvic ultrasounds of 07/29/[address] abdomen and pelvis without contrast of 2016 FINDINGS: There is appearance of a small amount of fluid in endometrial cavity. The thickness of the endometrium including the fluid equals 1.1 cm. There is appearance of diffuse thickening of the endometrial myometrial junction zone suggestive of adenomyosis. Nabothian cysts in the cervix. The uterus measures approximately 8 x 5 x 5.4 cm. No definite ovarian abnormality is seen. The apparent prominent right ovary/ right ovarian/adnexal mass seen on the CT is thought to most likely be secondary to multiple adjacent unopacified small bowel loops and unremarkable right ovary. No abnormality of the bladder is seen. No enlarged lymph nodes are seen in the pelvis. No significant free intrapelvic fluid is seen on this study. There is appearance of bilateral Bartholin gland cysts measuring approximately 2.2 cm on the left and 1.7 cm on the right. IMPRESSION: Patient motion limits evaluation. Small amount of fluid in the endometrial cavity. Appearance of diffuse thickening of the endometrial myometrial junction zone suggestive of adenomyosis. No definite ovarian abnormality is seen. The apparent right ovarian/adnexal mass seen on the present CT examination and the CT 05/02/2017 is thought to most likely be secondary to multiple immediately adjacent unopacified small bowel loops and unremarkable right ovary. However, because this is not certain, particularly on the postcontrast images, CT pelvis with ORAL and intravenous contrast is recommended for confirmation and to exclude a right ovarian/adnexal mass. Please see above. RPTAT: HJES .Mono Stokes MD, MD Date Time Electronically viewed and signed by .Mono Stokes MD, MD on 07/30/2017 00:44 .S/ CC: VALERIE BATES MD [place] [address] Radiology Main Line: [phone] DIAGNOSTIC IMAGING REPORT Patient: MAXIMUS GRANT : 1970 Age: 47 Sex: F MR #: [id number] DOS: 07/30/17 0000 Ordering MD: KACIE WHITTINGTON M.D. Location: [facility] [place] Room/Bed: [facility] PROCEDURE: CT Abdomen and Pelvis with contrast. CLINICAL INDICATION: Pelvic mass TECHNIQUE: CT of the abdomen and pelvis was performed on a multi-detector scanner following the uncomplicated IV administration of 100 cc of Omnipaque 300. Oral contrast was given as well. Coronal and sagittal images were reformatted from the axial data set. One or more of the following dose reduction techniques were used: automated exposure control, adjustment of the mA and/or kV according to patient size, use of iterative reconstruction technique. CTDI = 22.4 mGy. DLP = 1427.87 mGy-cm. COMPARISON: CT and MRI, 07/29/2017; CT, 05/02/2017 FINDINGS: Small left pleural effusion and bibasilar atelectasis are noted. The heart size is normal, without pericardial effusion. Layering hyperdensity within the gallbladder likely represents excreted contrast. Liver, biliary tree, pancreas, spleen, adrenal glands and kidneys are unremarkable. No urolithiasis or obstructive uropathy is identified. The stomach is grossly unremarkable. There is no abdominal aortic aneurysm or dissection. There is no retroperitoneal lymphadenopathy. The nadeen hepatis region is clear. Mild amount of ascites is present. There is no bowel obstruction, free intraperitoneal air or abscess. No diverticulosis, diverticulitis, colitis or appendicitis is identified. Urinary bladder, uterus and left adnexa are unremarkable. Indeterminate 7.0 cm ovoid mass is again seen in the right adnexa , similar in appearance to prior exams. No pelvic lymphadenopathy is identified. The surrounding osseous structures are remarkable for chronic bilateral L5 spondylolysis, without associated spondylolisthesis. No osteolytic or osteoblastic lesion is detected. IMPRESSION: 1. Indeterminate 7.0 cm ovoid mass is again seen in the right adnexa, similar in appearance to prior CT and MRI exams dating back to 05/02/2017. Recent prior MRI demonstrates areas of T2 hypointensity and precontrast T1 hyperintensity in this location, suggestive of blood products within this lesion, possibly indicating hemorrhagic ovarian cyst or endometrioma. 2. Mild amount of ascites is present, increased from the prior CT. There is no bowel obstruction or perforation. 3. Small left pleural effusion and bibasilar atelectasis are noted, also increased. RPTAT: AAQQ .Elie Yang MD, MD Date Time Electronically viewed and signed by .Elie Yang MD, MD on 07/30/2017 16: 35 .R/ CC: KACIE WHITTINGTON M.D. [place] [address] Radiology Main Line: [phone] DIAGNOSTIC IMAGING REPORT Patient: MAXIMUS GRANT : 1970 Age: 47 Sex: F MR #: [id number] DOS: 07/31/17 0000 Ordering MD: ANKIT VIVEROS MD, [facility] Location: ICU [facility] PROCEDURE: US Lower extremity Venous. CLINICAL INDICATION: Lower leg pain and swelling TECHNIQUE: Multiple sonographic images of the bilateral lower extremity deep venous system was obtained utilizing grayscale, color-flow, compressive sonography and doppler imaging with augmentation. The images were reviewed on a PACS workstation. COMPARISON: None. FINDINGS: There is normal compressibility and flow within the bilateral common femoral, deep femoral, superficial femoral and popliteal veins. The deep veins the calf were incompletely visualized. There are no findings of deep venous thrombosis. IMPRESSION: No sonographic evidence for deep venous thrombosis. RPTAT: QQ .Kieran Harper MD, MD Date Time Electronically viewed and signed by .Kieran Harper MD, MD on 07/31/2017 14:16 .M/ CC: ANKIT VIVEROS MD, [place] [address] Radiology Main Line: [phone] DIAGNOSTIC IMAGING REPORT Patient: MAXIMUS GRANT : 1970 Age: 47 Sex: F MR #: [id number] DOS: 07/31/17 0000 Ordering MD: FARZANEH GREEN Location: ICU [facility] PROCEDURE: CTA Chest with contrast and with 3-D reconstructions CLINICAL INDICATION: Pulmonary embolism TECHNIQUE: The study was performed utilizing multidetector CT scanner. Direct spiral axial sections were obtained from the thoracic inlet to the upper abdomen with the use of intravenous contrast material (125 cc of Omnipaque 350) . Sagittal, coronal and 3-D reformations were obtained. The images were reviewed on a PACS workstation. DLP 665.94 mGycm CTDIvol 7.04, 105.63, 19.81 mGy One or more of the following dose reduction techniques were used: - Automated exposure control. - Adjustment of the mA and/or kV according to patient size. - Use of iterative reconstruction technique. COMPARISON: CT abdomen/pelvis from 07/30/2017 FINDINGS: There are emboli in branches of the pulmonary artery to the right upper lobe which extend into the right pulmonary artery. Filling defects are also noted in branches of the pulmonary artery to the left lower lobe and lingula. There is stable subsegmental bibasilar atelectasis. There is no pleural fluid. There is no pneumothorax. There is mild cardiomegaly. There is no pericardial fluid. An aberrant origin of the right subclavian artery posterior to the esophagus is identified consistent with a diverticulum of Kommerel. There are no enlarged axillary or mediastinal lymph nodes. There is mild ascites in the upper abdomen. Osseous and soft tissue structures are within normal limits. IMPRESSION: Emboli are noted in branches of the pulmonary artery to the right upper lobe, lingula, and left lower lobe. Stable subsegmental bibasilar atelectasis. Mild cardiomegaly. 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 Correlation for dysphasia is recommended. These findings were discussed with the nurse taking care of the patient, Orly Kenvickie, over the phone on 07/31/2017 at 12:52 PM. RPTAT: EE Physician Demetria Date Time Electronically viewed and signed by Physician Demetria on 07/31/2017 12:56 RA/ CC: FARZANEH GREEN VERA M MD Aug 01, 2017 20:41
[2017-08-01] MEDS: LABETALOL HCL 20MG INJ IV PRN (21:07)
[2017-08-02] VITALS (24 sets, daily range): BP systolic 131–177; BP diastolic 80–115; PULSE 72–102; RESP 12–28
[2017-08-02] MEDS: NS + KCL 20 MEQ 1,000 ML IV SCH ×2 (01:13→05:34)
[2017-08-02] MEDS ORDERED: ACETYLCYSTEINE 20% 4 ML VIAL NEB PRN (03:00)
[2017-08-02] MEDS ORDERED: ALBUTEROL/IPRATROPIUM (NEB) 3 ML AMP HHN PRN (03:00)
[2017-08-02] MEDS: HYDROmorphONE 2 MG/ML SYG IV PRN ×3 (03:09→20:22)
[2017-08-02] MEDS: PANTOPRAZOLE (EC) 40 MG TAB PO SCH (05:33)
[2017-08-02] MEDS: HEPARIN 25000 UNITS/250 ML 250 ML IV SCH ×2 (05:38→22:28)
[2017-08-02] MEDS: LABETALOL HCL 20MG INJ IV PRN (06:15)
[2017-08-02] MEDS: MUPIROCIN 2% 22 GM OINT TOP SCH ×2 (09:37→20:22)
--- NOTE | 2017-08-02 11:22 | HPN ---
Date/Time of Note Date/Time of Note DATE: 08/02/17 TIME: 11:22 Interval H&P Admission Note Pt. seen H&P reviewed: No system changes BERNARDA QIU MD Aug 02, 2017 11:22
[2017-08-02] MEDS ORDERED: LIDOCAINE 1% (MDV) 20 ML INJ ONE (11:23)
--- NOTE | 2017-08-02 11:25 | CONS ---
Date/Time of Note Date/Time of Note DATE: 08/02/17 TIME: 11:22 Consult Date/Type/Reason Admit Date/Time Jul 29, 2017 at 06:13 Initial Consult Date 08/01/17 Type of Consultation: Pulmonary Ordering Provider: FARZANEH GREEN Subjective Patient comfortable this morning. Reports no shortness of breath. Wants to drink. Objective Vital Signs Date Time Temp Pulse Resp B/P Pulse Ox O2 Delivery O2 Flow Rate FiO2 08/02/17 08:00 81 08/02/17 06:00 14 175/109 98 Nasal Cannula 3.0 08/02/17 04:00 98.8 Intake and Output 08/01/17 08/01/17 08/02/17 15:00 23:00 07:00 Intake Total 1064 ml 1220 ml 389 ml Output Total 200 ml 800 ml 850 ml Balance 864 ml 420 ml -461 ml Exam GENERAL: Morbidly obese lady comfortable at rest on nasal cannula oxygen VITAL SIGNS: per chart NECK: Supple. No JVD or lymphadenopathy. CARDIAC EXAM: S1, S2. No added sounds or murmurs. CHEST: clear bilaterally, No added sounds, rales or wheezes ABDOMEN: Soft, nontender. No guarding or rebound. EXTREMITIES: No cyanosis, clubbing or edema. NEUROLOGIC: Generalized weakness. No focal deficits. Results/Medications Result Diagram: 08/02/17 0432 08/02/17 0432 Results 24 hrs Laboratory Tests Test 08/01/17 14:00 08/01/17 19:56 08/02/17 00:48 08/02/17 04:32 Activated Partial Thromboplast Time 109.6 *H 126.0 *H 172.0 *H White Blood Count 3.9 #L Red Blood Count 3.42 L Hemoglobin 8.6 L Hematocrit 28.5 L Mean Corpuscular Volume 83.3 Mean Corpuscular Hemoglobin 25.1 L Mean Corpuscular Hemoglobin Concent 30.2 L Red Cell Distribution Width 16.6 H Platelet Count 157 Mean Platelet Volume 11.9 H Neutrophils % 55.8 Lymphocytes % 22.9 Monocytes % 14.9 H Eosinophils % 5.1 Basophils % 0.5 Nucleated Red Blood Cells % 0.5 H Neutrophils # 2.2 Lymphocytes # 0.9 Monocytes # 0.6 Eosinophils # 0.2 Basophils # 0.0 Nucleated Red Blood Cells # 0.0 Sodium Level 137 Potassium Level 3.1 L Chloride Level 101 Carbon Dioxide Level 28 Anion Gap 11 Blood Urea Nitrogen 14 Creatinine 0.54 Glucose Level 133 Calcium Level 7.6 L Iron Level 22 L Total Iron Binding Capacity 301 Percent Iron Saturation 7 L Test 08/02/17 07:16 Activated Partial Thromboplast Time 126.5 *H Medications Current Medications Potassium Chloride/Sodium Chloride (NS-KCl 20 Meq) 1,000 ml @ 50 mls/hr Q20H IV Last administered on 08/02/17 05:34; Admin Dose 50 MLS/HR; Start at 20:00 Hydromorphone HCl (Dilaudid) 1 mg Q4H PRN IV PAIN Last administered on 03:09; Admin Dose 1 MG; Start 07/30/17 at 02:30 Simethicone (Mylicon) 80 mg Q6H PRN PO DISTENSION/GAS/BLOATING Last administered on 08/01/17 08:49; Admin Dose 80 MG; Start 07/31/17 at 14:30 Morphine Sulfate (morphine) 4 mg Q3H PRN IV PAIN LEVEL 4-7 Last administered on 07/31/17 20:19; Admin Dose 4 MG; Start 07/31/17 at 20:00 Pantoprazole (Protonix Tab) 40 mg DAILY@06 PO ; Start 08/02/17 at 06:00 Ondansetron HCl (Zofran Inj) 4 mg Q6H PRN IV NAUSEA AND/OR VOMITING; Start at 12:30 Labetalol HCl (Labetalol) 20 mg Q4 PRN IV SBP >170 Last administered on 06:15; Admin Dose 20 MG; Start 08/01/17 at 14:30 Mupirocin 1 applic 1 applic BID TOP Last administered on 08/02/17 09:37; Admin Dose 1 APPLIC; Start 08/01/17 at 21:00; Stop 08/10/17 at 22:00 Potassium Chloride (KCl 40 MEQ/250 ML NS) 250 ml @ 62.5 mls/hr ONCE ONCE IVPB ; Start 08/02/17 at 11:30; Stop 08/02/17 at 15:29 Assessment/Plan Chief Complaint/Hosp Course IMPRESSION AND PLAN: 1. Acute abdomen with right adnexal mass, possible hemorrhagic ovarian cyst. 2. Acute bilateral submassive pulmonary emboli with hypoxemia, No hemodynamic compromise at present, improving hypoxemia 3. Morbid obesity. 4. Probable obstructive sleep apnea. PLAN: 1. Supplemental O2. 2. Incentive spirometry. 3. IV heparin drip. Anticoagulation for pulmonary emboli. 4. Gynecology recommendations 5. Echocardiogram. Preserved ejection fraction. No evidence of heart failure. Stage I diastolic dysfunction. Problems: ANKIT VIVEROS MD, [facility] Aug 02, 2017 11:25
[2017-08-02] MEDS ORDERED: MIDAZOLAM 1 MG/ML 2 ML INJ ONE (11:30)
[2017-08-02] MEDS ORDERED: POTASSIUM CHLORIDE 250 ML IVPB ONE (11:30)
[2017-08-02] MEDS ORDERED: FENTAnyl 50 MCG/ML VIAL ONE (11:30)
--- NOTE | 2017-08-02 11:47 | PN ---
Date/Time of Note Date/Time of Note DATE: 08/02/17 TIME: 11:40 Assessment/Plan VTE Prophylaxis VTE Prophylaxis Intervention: heparin Lines/Catheters IV Catheter Type (from Nrs): Peripheral IV Urinary Cath still in place: No Assessment/Plan Chief Complaint/Hosp Course pelvic mass and pain and anemia- although refused to cooperate with all exams and studies; risk of bleeding tumor or torsion Problems: Assessment/Plan A- awaits surgery Wed P- will have IVC filter today Subjective 24 Hr Interval Summary Free Text/Dictation feels sl better with less SOB and still pain Exam/Review of Systems Vital Signs Vitals Vital Signs Date Time Temp Pulse Resp B/P Pulse Ox O2 Delivery O2 Flow Rate FiO2 08/02/17 08:00 81 08/02/17 06:00 14 175/109 98 Nasal Cannula 3.0 08/02/17 04:00 98.8 Intake and Output 08/01/17 08/01/17 08/02/17 15:00 23:00 07:00 Intake Total 1064 ml 1220 ml 389 ml Output Total 200 ml 800 ml 850 ml Balance 864 ml 420 ml -461 ml Exam Resp- less pain and clear CVS- NSR Abd- ongoing distension Ext- NT minimal edema Results Result Diagram: 08/02/17 0432 08/02/17 0432 Results 24 hrs Laboratory Tests Test 08/01/17 14:00 08/01/17 19:56 08/02/17 00:48 08/02/17 04:32 Activated Partial Thromboplast Time 109.6 *H 126.0 *H 172.0 *H White Blood Count 3.9 #L Red Blood Count 3.42 L Hemoglobin 8.6 L Hematocrit 28.5 L Mean Corpuscular Volume 83.3 Mean Corpuscular Hemoglobin 25.1 L Mean Corpuscular Hemoglobin Concent 30.2 L Red Cell Distribution Width 16.6 H Platelet Count 157 Mean Platelet Volume 11.9 H Neutrophils % 55.8 Lymphocytes % 22.9 Monocytes % 14.9 H Eosinophils % 5.1 Basophils % 0.5 Nucleated Red Blood Cells % 0.5 H Neutrophils # 2.2 Lymphocytes # 0.9 Monocytes # 0.6 Eosinophils # 0.2 Basophils # 0.0 Nucleated Red Blood Cells # 0.0 Sodium Level 137 Potassium Level 3.1 L Chloride Level 101 Carbon Dioxide Level 28 Anion Gap 11 Blood Urea Nitrogen 14 Creatinine 0.54 Glucose Level 133 Calcium Level 7.6 L Iron Level 22 L Total Iron Binding Capacity 301 Percent Iron Saturation 7 L Test 08/02/17 07:16 Activated Partial Thromboplast Time 126.5 *H Medications Medications Current Medications Potassium Chloride/Sodium Chloride (NS-KCl 20 Meq) 1,000 ml @ 50 mls/hr Q20H IV Last administered on 08/02/17 05:34; Admin Dose 50 MLS/HR; Start at 20:00 Hydromorphone HCl (Dilaudid) 1 mg Q4H PRN IV PAIN Last administered on 03:09; Admin Dose 1 MG; Start 07/30/17 at 02:30 Simethicone (Mylicon) 80 mg Q6H PRN PO DISTENSION/GAS/BLOATING Last administered on 08/01/17 08:49; Admin Dose 80 MG; Start 07/31/17 at 14:30 Morphine Sulfate (morphine) 4 mg Q3H PRN IV PAIN LEVEL 4-7 Last administered on 07/31/17 20:19; Admin Dose 4 MG; Start 07/31/17 at 20:00 Pantoprazole (Protonix Tab) 40 mg DAILY@06 PO ; Start 08/02/17 at 06:00 Ondansetron HCl (Zofran Inj) 4 mg Q6H PRN IV NAUSEA AND/OR VOMITING; Start at 12:30 Labetalol HCl (Labetalol) 20 mg Q4 PRN IV SBP >170 Last administered on 06:15; Admin Dose 20 MG; Start 08/01/17 at 14:30 Mupirocin 1 applic 1 applic BID TOP Last administered on 08/02/17 09:37; Admin Dose 1 APPLIC; Start 08/01/17 at 21:00; Stop 08/10/17 at 22:00 Potassium Chloride (KCl 40 MEQ/250 ML NS) 250 ml @ 62.5 mls/hr ONCE ONCE IVPB ; Start 08/02/17 at 11:30; Stop 08/02/17 at 15:29 KIRSTIE CROSS MD Aug 02, 2017 11:47
--- NOTE | 2017-08-02 14:00 | SIPON ---
Date/Time of Note Date/Time of Note DATE: 08/02/17 TIME: 14:00 Operative Report Preoperative Diagnosis PULMONARY EMBOLISM Postoperative Diagnosis SAME Operation/Procedure Performed IVC FILTER PLACEMENT Surgeon see signature line treasury assistant NONE Anesthesia: moderate sedation Estimated blood loss: minimal Transfusion Required none Specimen NONE Grafts/Implants none Complications none BERNARDA QIU MD Aug 02, 2017 14:00
--- NOTE | 2017-08-02 14:00 | SIPON ---
Date/Time of Note Date/Time of Note DATE: 08/02/17 TIME: 14:00 Operative Report Preoperative Diagnosis PULMONARY EMBOLISM Postoperative Diagnosis SAME Operation/Procedure Performed IVC FILTER PLACEMENT Surgeon see signature line fitness assistant NONE Anesthesia: moderate sedation Estimated blood loss: minimal Transfusion Required none Specimen NONE Grafts/Implants none Complications none BERNARDA QIU MD Aug 02, 2017 14:00
--- NOTE | 2017-08-02 14:00 | SIPON ---
Date/Time of Note Date/Time of Note DATE: 08/02/17 TIME: 14:00 Operative Report Preoperative Diagnosis PULMONARY EMBOLISM Postoperative Diagnosis SAME Operation/Procedure Performed IVC FILTER PLACEMENT Surgeon see signature line zoning assistant NONE Anesthesia: moderate sedation Estimated blood loss: minimal Transfusion Required none Specimen NONE Grafts/Implants none Complications none BERNARDA QIU MD Aug 02, 2017 14:00
--- NOTE | 2017-08-02 14:09 | OPR ---
Date/Time of Note Date/Time of Note DATE: 08/02/17 TIME: 14:01 Operative Report Preoperative Diagnosis PULMONARY EMBOLISM Postoperative Diagnosis SAME Surgeon see signature line Utilities Estimator And Drafter NONE Anesthesia Type: moderate sedation Estimated Blood Loss: minimal Transfusion none Specimen NONE Grafts/Implants ARGON FILTER Complications none Disposition: other (ICU) Procedure Description DATE OF OPERATION: 08/02/17 SURGEON: James Qiu MD PREOPERATIVE DIAGNOSIS: PULMONARY EMBOLISM POSTOPERATIVE DIAGNOSIS: same ANESTHESIA: Local with Sedation BLOOD LOSS: minimal COMPLICATIONS: None. HEPARIN: None CONTRAST: As recorded ACCESS: 6Fr Sheath right CFC CLOSURE: Manual compression INDICATIONS: This is a 47-year-old female whom had presented with pulmonary embolism and right ovarian mass. Patient has been informed of the alternatives, risks, and benefits of angiogram, balloon angioplasty, and stenting. Risks including but not limited to bleeding, thrombosis, embolization, myocardial infarction, , device malfunction, infection, and nephrotoxicity and patient has agreed to proceed. This is the first diagnostic angiogram in this clinical setting PROCEDURE: 1. Ultrasound guided access of the Right common femoral vein 2. Right Iliocaval venogram 2. Inferior vena cava Filter placement (argon filter) FINDINGS: -Patent right iliac venous system -Patent IVC DESCRIPTION OF THE PROCEDURE: The patient was brought to the angio suite and positioned in the supine position on the fluoroscopic table. The right groin was prepped and draped in the standard fashion. Using 1% lidocaine, the area overlying the common femoral vein was anesthetized. The common femoral vein was punctured with the Seldinger needle using ultrasound guidance and a guide wire placed into the iliac vein. A microcatheter was placed over wire and iliocaval venogram was performed. Findings noted above. At this point talbert wire was placed and the microcatheter was exchanged with the Argon filter device sheath under fluoroscopy and placed in the vena cava. The sheath was flushed with heparin solution. Contrast venography was performed via sheath and there was no thrombus within the vena cava. The vena cava is 20 mm in diameter. The renal veins and iliac veins confluence was identified and marked on the screen. The device was inserted into the sheath and positioned below the lowest renal vein. The sheath was withdrawn, exposing the filter. With continuous fluoroscopic imaging, the filter was deployed in the infrarenal vena cava. Completion venogram showed good filter position within the vena cava without thrombus formation. The device and sheath were removed and manual pressure applied to the puncture site for hemostasis. Dressings were applied. The patient tolerated the procedure well and was taken to the ICU in stable condition. JAMES QIU MD Aug 02, 2017 14:09
--- NOTE | 2017-08-02 22:40 | CONS ---
Date/Time of Note Date/Time of Note DATE: 08/02/17 TIME: 22:39 Assessment/Plan Assessment/Plan Chief Complaint/Hosp Course bilateral pulmonary emboli WITH Acute respiratory distress MOST LIKELY 2 TO UNDERLING NEOPLASIA, CONSIDERING PELVIC MASS AND INCREASED CE 125 PT DOESN'T NEED ANY ADDITIONAL HYPERCOAG W-UP AT THIS POINT, WILL PROCEED IF NO NEOPLASIA IDENTIFIED Continue heparin drip R ADNEXAL MASS Abdominal pain secondary to probable ovarian torsion versus bleeding neoplasm versus a functional cyst with persistent bleeding Plan was for laparoscopic USO yesterday but was canceled secondary to hypoxia CTA of chest showed bilateral pulmonary emboli, continue heparin drip Monitor for drop in hemoglobin in particular while on heparin as patient does appear to have a bleeding ovarian cyst or tumor, benefits of heparin drip outweigh risk of bleeding, this was discussed with patient and family Pulmonology and vascular surgery consultation appreciated , plan is for IVC filter tomorrow surgery with gynecology oncology with Dr Nicholas on Wednesday Indeterminate 7.0 cm ovoid mass is again seen in the right adnexa, similar in appearance to prior CT and MRI exams dating back to . Recent prior MRI demonstrates areas of T2 hypointensity and precontrast T1 hyperintensity in this location, suggestive of blood products within this lesion, possibly indicating hemorrhagic ovarian cyst or endometrioma. Mild amount of ascites is present, increased from the prior CT. There is no bowel obstruction or perforation. Small left pleural effusion and bibasilar atelectasis are noted, also increased. CA 125 - 544 Leukocytosis-likely reactive WBC has normalized Check a UA to rule out UTI Normocytic anemia secondary to chronic disease versus acute blood loss Monitor Check iron panel Problems: Consultation Date/Type/Reason Admit Date/Time Jul 29, 2017 at 06:13 Initial Consult Date 08/01/17 [facility] Referring Provider: FARZANEH GREEN 24 HR Interval Summary Free Text/Dictation ALL NOTED D/W RN Exam/Review of Systems Vital Signs Vitals Vital Signs Date Time Temp Pulse Resp B/P Pulse Ox O2 Delivery O2 Flow Rate FiO2 08/02/17 21:00 87 16 153/104 96 Nasal Cannula 3.0 08/02/17 20:00 98.5 Intake and Output 08/01/17 08/01/17 08/02/17 15:00 23:00 07:00 Intake Total 1064 ml 1220 ml 389 ml Output Total 200 ml 800 ml 850 ml Balance 864 ml 420 ml -461 ml Exam GENERAL: Morbidly obese lady comfortable at rest on nasal cannula oxygen VITAL SIGNS: per chart NECK: Supple. No JVD or lymphadenopathy. CARDIAC EXAM: S1, S2. No added sounds or murmurs. CHEST: clear bilaterally, No added sounds, rales or wheezes ABDOMEN: Soft, nontender. No guarding or rebound. EXTREMITIES: No cyanosis, clubbing or edema. NEUROLOGIC: Generalized weakness. No focal deficits. Results Result Diagram: 08/02/17 0432 08/02/17 043 Results 24 hrs Laboratory Tests Test 08/02/17 00:48 08/02/17 04:32 08/02/17 07:16 08/02/17 16:10 Activated Partial Thromboplast Time 172.0 *H 126.5 *H 103.1 *H White Blood Count 3.9 #L Red Blood Count 3.42 L Hemoglobin 8.6 L Hematocrit 28.5 L Mean Corpuscular Volume 83.3 Mean Corpuscular Hemoglobin 25.1 L Mean Corpuscular Hemoglobin Concent 30.2 L Red Cell Distribution Width 16.6 H Platelet Count 157 Mean Platelet Volume 11.9 H Neutrophils % 55.8 Lymphocytes % 22.9 Monocytes % 14.9 H Eosinophils % 5.1 Basophils % 0.5 Nucleated Red Blood Cells % 0.5 H Neutrophils # 2.2 Lymphocytes # 0.9 Monocytes # 0.6 Eosinophils # 0.2 Basophils # 0.0 Nucleated Red Blood Cells # 0.0 Sodium Level 137 Potassium Level 3.1 L Chloride Level 101 Carbon Dioxide Level 28 Anion Gap 11 Blood Urea Nitrogen 14 Creatinine 0.54 Glucose Level 133 Calcium Level 7.6 L Iron Level 22 L Total Iron Binding Capacity 301 Percent Iron Saturation 7 L Medications Medications Current Medications Potassium Chloride/Sodium Chloride (NS-KCl 20 Meq) 1,000 ml @ 50 mls/hr Q20H IV Last administered on 08/02/17 05:34; Admin Dose 50 MLS/HR; Start at 20:00 Hydromorphone HCl (Dilaudid) 1 mg Q4H PRN IV PAIN Last administered on 20:22; Admin Dose 1 MG; Start 07/30/17 at 02:30 Simethicone (Mylicon) 80 mg Q6H PRN PO DISTENSION/GAS/BLOATING Last administered on 08/01/17 08:49; Admin Dose 80 MG; Start 07/31/17 at 14:30 Morphine Sulfate (morphine) 4 mg Q3H PRN IV PAIN LEVEL 4-7 Last administered on 07/31/17 20:19; Admin Dose 4 MG; Start 07/31/17 at 20:00 Pantoprazole (Protonix Tab) 40 mg DAILY@06 PO ; Start 08/02/17 at 06:00 Ondansetron HCl (Zofran Inj) 4 mg Q6H PRN IV NAUSEA AND/OR VOMITING; Start at 12:30 Labetalol HCl (Labetalol) 20 mg Q4 PRN IV SBP >170 Last administered on 06:15; Admin Dose 20 MG; Start 08/01/17 at 14:30 Mupirocin (Bactroban) 1 applic BID TOP Last administered on 08/02/17 20:22; Admin Dose 1 APPLIC; Start 08/01/17 at 21:00; Stop 08/10/17 at 22:00 RANDALL DELUCA MD Aug 02, 2017 22:40
[2017-08-03] VITALS (17 sets, daily range): BP systolic 130–180; BP diastolic 87–106; PULSE 69–85; RESP 10–20
[2017-08-03] MEDS: HYDROmorphONE 2 MG/ML SYG IV PRN ×2 (02:34→11:34)
[2017-08-03] MEDS: NS + KCL 20 MEQ 1,000 ML IV SCH ×2 (06:10→17:07)
[2017-08-03] MEDS: PANTOPRAZOLE (EC) 40 MG TAB PO SCH (06:10)
--- NOTE | 2017-08-03 07:58 | RADRPT ---
PROCEDURE: XR Chest. CLINICAL INDICATION: Shortness of breath TECHNIQUE: Single portable view of the chest was obtained. COMPARISON: 07/31/2017 FINDINGS: Stable cardiomediastinal silhouette. Bilateral perihilar and basilar airspace opacities. Small left pleural effusion. No evidence of pneumothorax. Dilated loops of bowel over the upper abdomen. IMPRESSION: Bilateral perihilar and basilar airspace opacities representing pulmonary edema or infection. Small left pleural effusion. Dilated loops of bowel over the upper abdomen. RPTAT:AAJJ Physician Carmen Date Time Electronically viewed and signed by Physician Carmen on 08/03/2017 07:57 /
[2017-08-03] MEDS: MUPIROCIN 2% 22 GM OINT TOP SCH ×2 (09:47→21:00)
[2017-08-03] MEDS: POTASSIUM CHLORIDE 250 ML IVPB SCH ×3 (09:48→16:23)
--- NOTE | 2017-08-03 10:32 | CONS ---
Date/Time of Note Date/Time of Note DATE: 08/03/17 TIME: 10:32 Consult Date/Type/Reason Admit Date/Time Jul 29, 2017 at 06:13 Initial Consult Date 08/01/17 Type of Consultation: Pulmonary Ordering Provider: FARZANEH GREEN Subjective No changes. Patient remained stable. Objective Vital Signs Date Time Temp Pulse Resp B/P Pulse Ox O2 Delivery O2 Flow Rate FiO2 08/03/17 09:00 80 16 130/94 99 Nasal Cannula 2.0 08/03/17 08:00 98.6 Intake and Output 08/02/17 08/02/17 08/03/17 15:00 23:00 07:00 Intake Total 506 ml 854 ml 670 ml Output Total 400 ml 1250 ml 1000 ml Balance 106 ml -396 ml -330 ml Exam GENERAL: Morbidly obese lady comfortable at rest on nasal cannula oxygen VITAL SIGNS: per chart NECK: Supple. No JVD or lymphadenopathy. CARDIAC EXAM: S1, S2. No added sounds or murmurs. CHEST: clear bilaterally, No added sounds, rales or wheezes ABDOMEN: Soft, nontender. No guarding or rebound. EXTREMITIES: No cyanosis, clubbing or edema. NEUROLOGIC: Generalized weakness. No focal deficits. Results/Medications Result Diagram: 08/03/17 0608/03/17 06 Results 24 hrs Laboratory Tests Test 08/02/17 16:10 08/02/17 23:17 08/03/17 06:05 Activated Partial Thromboplast Time 103.1 *H 105.7 *H 129.0 *H White Blood Count 4.7 #L Red Blood Count 3.39 L Hemoglobin 8.9 L Hematocrit 27.8 L Mean Corpuscular Volume 82.0 Mean Corpuscular Hemoglobin 26.3 L Mean Corpuscular Hemoglobin Concent 32.0 Red Cell Distribution Width 16.3 H Platelet Count 156 Mean Platelet Volume 11.2 H Neutrophils % 51.7 Lymphocytes % 29.1 Monocytes % 13.1 H Eosinophils % 4.4 Basophils % 0.6 Nucleated Red Blood Cells % 0.4 H Neutrophils # 2.5 Lymphocytes # 1.4 Monocytes # 0.6 Eosinophils # 0.2 Basophils # 0.0 Nucleated Red Blood Cells # 0.0 Sodium Level 138 Potassium Level 2.9 *L Chloride Level 100 Carbon Dioxide Level 29 Anion Gap 12 Blood Urea Nitrogen 6 L Creatinine 0.54 Glucose Level 114 Calcium Level 7.8 L Medications Current Medications Potassium Chloride/Sodium Chloride (NS-KCl 20 Meq) 1,000 ml @ 50 mls/hr Q20H IV Last administered on 08/03/17 06:10; Admin Dose 50 MLS/HR; Start at 20:00 Hydromorphone HCl (Dilaudid) 1 mg Q4H PRN IV PAIN Last administered on 02:34; Admin Dose 1 MG; Start 07/30/17 at 02:30 Simethicone (Mylicon) 80 mg Q6H PRN PO DISTENSION/GAS/BLOATING Last administered on 08/01/17 08:49; Admin Dose 80 MG; Start 07/31/17 at 14:30 Morphine Sulfate (morphine) 4 mg Q3H PRN IV PAIN LEVEL 4-7 Last administered on 07/31/17 20:19; Admin Dose 4 MG; Start 07/31/17 at 20:00 Pantoprazole (Protonix Tab) 40 mg DAILY@06 PO Last administered on 08/03/17 06:10; Admin Dose 40 MG; Start 08/02/17 at 06:00 Ondansetron HCl (Zofran Inj) 4 mg Q6H PRN IV NAUSEA AND/OR VOMITING; Start at 12:30 Labetalol HCl (Labetalol) 20 mg Q4 PRN IV SBP >170 Last administered on 06:15; Admin Dose 20 MG; Start 08/01/17 at 14:30 Mupirocin 1 applic 1 applic BID TOP Last administered on 08/03/17 09:47; Admin Dose 1 APPLIC; Start 08/01/17 at 21:00; Stop 08/10/17 at 22:00 Potassium Chloride (KCl 40 MEQ/250 ML NS) 250 ml @ 62.5 mls/hr Q4H IVPB Last administered on 08/03/17 09:48; Admin Dose 62.5 MLS/HR; Start 08/03/17 at 09: 00; Stop 08/03/17 at 16:59 Assessment/Plan Chief Complaint/Hosp Course IMPRESSION AND PLAN: 1. Acute abdomen with right adnexal mass, possible hemorrhagic ovarian cyst. 2. Acute bilateral submassive pulmonary emboli with hypoxemia, No hemodynamic compromise at present, improving hypoxemia 3. Morbid obesity. 4. Probable obstructive sleep apnea. PLAN: 1. Supplemental O2. 2. Incentive spirometry. 3. IV heparin drip. Anticoagulation for pulmonary emboli. 4. Gynecology recommendations possible surgery tomorrow. 5. Echocardiogram. Preserved ejection fraction. No evidence of heart failure. Stage I diastolic dysfunction. Problems: ANKIT VIVEROS MD, [facility] Aug 03, 2017 10:32
[2017-08-03] MEDS: HEPARIN 25000 UNITS/250 ML 250 ML IV SCH (16:15)
--- NOTE | 2017-08-03 17:41 | CONS ---
Date/Time of Note Date/Time of Note DATE: 08/03/17 TIME: 17:39 Assessment/Plan Assessment/Plan Chief Complaint/Hosp Course bilateral pulmonary emboli WITH Acute respiratory distress MOST LIKELY 2 TO UNDERLING NEOPLASIA, CONSIDERING PELVIC MASS AND INCREASED CE 125 PT DOESN'T NEED ANY ADDITIONAL HYPERCOAG W-UP AT THIS POINT, WILL PROCEED IF NO NEOPLASIA IDENTIFIED Continue heparin drip R ADNEXAL MASS Abdominal pain secondary to probable ovarian torsion versus bleeding neoplasm versus a functional cyst with persistent bleeding Plan was for laparoscopic USO yesterday but was canceled secondary to hypoxia CTA of chest showed bilateral pulmonary emboli, continue heparin drip Monitor for drop in hemoglobin in particular while on heparin as patient does appear to have a bleeding ovarian cyst or tumor, benefits of heparin drip outweigh risk of bleeding, this was discussed with patient and family IVC filter surgery with gynecology oncology with Dr Nicholas on Wednesday Indeterminate 7.0 cm ovoid mass is again seen in the right adnexa, similar in appearance to prior CT and MRI exams dating back to . Recent prior MRI demonstrates areas of T2 hypointensity and precontrast T1 hyperintensity in this location, suggestive of blood products within this lesion, possibly indicating hemorrhagic ovarian cyst or endometrioma. Mild amount of ascites is present, increased from the prior CT. There is no bowel obstruction or perforation. Small left pleural effusion and bibasilar atelectasis are noted, also increased. CA 125 - 544 Leukocytosis-likely reactive Normocytic anemia secondary to chronic disease versus acute blood loss Problems: Consultation Date/Type/Reason Admit Date/Time Jul 29, 2017 at 06:13 Initial Consult Date 08/01/17 Type of Consultation: [facility] Referring Provider: FARZANEH GREEN 24 HR Interval Summary Free Text/Dictation ALL NOTED TRANSFERRED TO TELE Exam/Review of Systems Vital Signs Vitals Vital Signs Date Time Temp Pulse Resp B/P Pulse Ox O2 Delivery O2 Flow Rate FiO2 08/03/17 16:00 72 08/03/17 15:30 98.2 18 134/90 93 08/03/17 11:38 2.0 08/03/17 10:40 Nasal Cannula Intake and Output 08/02/17 08/02/17 08/03/17 15:00 23:00 07:00 Intake Total 506 ml 854 ml 670 ml Output Total 400 ml 1250 ml 1000 ml Balance 106 ml -396 ml -330 ml Exam GENERAL: Morbidly obese lady comfortable at rest on nasal cannula oxygen VITAL SIGNS: per chart NECK: Supple. No JVD or lymphadenopathy. CARDIAC EXAM: S1, S2. No added sounds or murmurs. CHEST: clear bilaterally, No added sounds, rales or wheezes ABDOMEN: Soft, nontender. No guarding or rebound. EXTREMITIES: No cyanosis, clubbing or edema. NEUROLOGIC: Generalized weakness. No focal deficits. Results Result Diagram: 08/03/1760408/03/17604 Results 24 hrs Laboratory Tests Test 08/02/17 23:17 08/03/17 06:05 08/03/17 14:35 Activated Partial Thromboplast Time 105.7 *H 129.0 *H 77.2 *H White Blood Count 4.7 #L Red Blood Count 3.39 L Hemoglobin 8.9 L Hematocrit 27.8 L Mean Corpuscular Volume 82.0 Mean Corpuscular Hemoglobin 26.3 L Mean Corpuscular Hemoglobin Concent 32.0 Red Cell Distribution Width 16.3 H Platelet Count 156 Mean Platelet Volume 11.2 H Neutrophils % 51.7 Lymphocytes % 29.1 Monocytes % 13.1 H Eosinophils % 4.4 Basophils % 0.6 Nucleated Red Blood Cells % 0.4 H Neutrophils # 2.5 Lymphocytes # 1.4 Monocytes # 0.6 Eosinophils # 0.2 Basophils # 0.0 Nucleated Red Blood Cells # 0.0 Sodium Level 138 Potassium Level 2.9 *L Chloride Level 100 Carbon Dioxide Level 29 Anion Gap 12 Blood Urea Nitrogen 6 L Creatinine 0.54 Glucose Level 114 Calcium Level 7.8 L Medications Medications Current Medications Potassium Chloride/Sodium Chloride (NS-KCl 20 Meq) 1,000 ml @ 50 mls/hr Q20H IV Last administered on 08/03/17 06:10; Admin Dose 50 MLS/HR; Start at 20:00 Hydromorphone HCl (Dilaudid) 1 mg Q4H PRN IV PAIN Last administered on 11:34; Admin Dose 1 MG; Start 07/30/17 at 02:30 Simethicone (Mylicon) 80 mg Q6H PRN PO DISTENSION/GAS/BLOATING Last administered on 08/01/17 08:49; Admin Dose 80 MG; Start 07/31/17 at 14:30 Morphine Sulfate (morphine) 4 mg Q3H PRN IV PAIN LEVEL 4-7 Last administered on 07/31/17 20:19; Admin Dose 4 MG; Start 07/31/17 at 20:00 Pantoprazole (Protonix Tab) 40 mg DAILY@06 PO Last administered on 08/03/17 06:10; Admin Dose 40 MG; Start 08/02/17 at 06:00 Ondansetron HCl (Zofran Inj) 4 mg Q6H PRN IV NAUSEA AND/OR VOMITING; Start at 12:30 Labetalol HCl (Labetalol) 20 mg Q4 PRN IV SBP >170 Last administered on 06:15; Admin Dose 20 MG; Start 08/01/17 at 14:30 Mupirocin (Bactroban) 1 applic BID TOP Last administered on 08/03/17 09:47; Admin Dose 1 APPLIC; Start 08/01/17 at 21:00; Stop 08/10/17 at 22:00 RANDALL DELUCA MD Aug 03, 2017 17:41
--- NOTE | 2017-08-03 20:50 | PN ---
Date/Time of Note Date/Time of Note DATE: 08/03/17 TIME: 20:43 Assessment/Plan VTE Prophylaxis VTE Prophylaxis Intervention: heparin Lines/Catheters IV [facility] Type [facility] Peripheral IV Urinary Cath still in place: No Assessment/Plan Chief Complaint/Hosp Course pelvic mass and pain and anemia- although refused to cooperate with all exams and studies; risk of bleeding tumor or torsion Problems: Assessment/Plan A- stable P- surgery as planned tomorrow Subjective 24 Hr Interval Summary Free Text/Dictation Less SOB and feels better but ongoing abdominal pain. Exam/Review of Systems Vital Signs Vitals Vital Signs Date Time Temp Pulse Resp B/P Pulse Ox O2 Delivery O2 Flow Rate FiO2 08/03/17 20:30 2.0 08/03/17 20:00 76 08/03/17 15:30 98.2 18 134/90 93 08/03/17 10:40 Nasal Cannula Intake and Output 08/02/17 08/02/17 08/03/17 15:00 23:00 07:00 Intake Total 506 ml 854 ml 670 ml Output Total 400 ml 1250 ml 1000 ml Balance 106 ml -396 ml -330 ml Exam Resp- more symmetric and clear CVS: NSR Abd: general pain and tender Ext: NT Results Result Diagram: 08/03/17 0605 08/03/17 0605 Results 24 hrs Laboratory Tests Test 08/02/17 23:17 08/03/17 06:05 08/03/17 14:35 Activated Partial Thromboplast Time 105.7 *H 129.0 *H 77.2 *H White Blood Count 4.7 #L Red Blood Count 3.39 L Hemoglobin 8.9 L Hematocrit 27.8 L Mean Corpuscular Volume 82.0 Mean Corpuscular Hemoglobin 26.3 L Mean Corpuscular Hemoglobin Concent 32.0 Red Cell Distribution Width 16.3 H Platelet Count 156 Mean Platelet Volume 11.2 H Neutrophils % 51.7 Lymphocytes % 29.1 Monocytes % 13.1 H Eosinophils % 4.4 Basophils % 0.6 Nucleated Red Blood Cells % 0.4 H Neutrophils # 2.5 Lymphocytes # 1.4 Monocytes # 0.6 Eosinophils # 0.2 Basophils # 0.0 Nucleated Red Blood Cells # 0.0 Sodium Level 138 Potassium Level 2.9 *L Chloride Level 100 Carbon Dioxide Level 29 Anion Gap 12 Blood Urea Nitrogen 6 L Creatinine 0.54 Glucose Level 114 Calcium Level 7.8 L Medications Medications Current Medications Potassium Chloride/Sodium Chloride (NS-KCl 20 Meq) 1,000 ml @ 50 mls/hr Q20H IV Last administered on 08/03/17 06:10; Admin Dose 50 MLS/HR; Start at 20:00 Hydromorphone HCl (Dilaudid) 1 mg Q4H PRN IV PAIN Last administered on 11:34; Admin Dose 1 MG; Start 07/30/17 at 02:30 Simethicone (Mylicon) 80 mg Q6H PRN PO DISTENSION/GAS/BLOATING Last administered on 08/01/17 08:49; Admin Dose 80 MG; Start 07/31/17 at 14:30 Morphine Sulfate (morphine) 4 mg Q3H PRN IV PAIN LEVEL 4-7 Last administered on 07/31/17 20:19; Admin Dose 4 MG; Start 07/31/17 at 20:00 Pantoprazole (Protonix Tab) 40 mg DAILY@06 PO Last administered on 08/03/17 06:10; Admin Dose 40 MG; Start 08/02/17 at 06:00 Ondansetron HCl (Zofran Inj) 4 mg Q6H PRN IV NAUSEA AND/OR VOMITING; Start at 12:30 Labetalol HCl (Labetalol) 20 mg Q4 PRN IV SBP >170 Last administered on 06:15; Admin Dose 20 MG; Start 08/01/17 at 14:30 Mupirocin (Bactroban) 1 applic BID TOP Last administered on 08/03/17 09:47; Admin Dose 1 APPLIC; Start 08/01/17 at 21:00; Stop 08/10/17 at 22:00 KIRSTIE CROSS MD Aug 03, 2017 20:50
[2017-08-03] MEDS: morphine 4 MG/ML VIAL IV PRN (22:38)
[2017-08-04] VITALS (23 sets, daily range): BP systolic 106–153; BP diastolic 56–85; PULSE 60–86; RESP 13–24
[2017-08-04] MEDS ORDERED: DIPHENHYDRAMINE 50 MG INJ IV ONE (01:30)
[2017-08-04] MEDS: PANTOPRAZOLE (EC) 40 MG TAB PO SCH (06:00)
[2017-08-04] MEDS ORDERED: THROMBIN 5000 UNIT VIAL ONE (07:23)
[2017-08-04] MEDS ORDERED: VASOPRESSIN 20 UNITS INJ ONE (07:24)
[2017-08-04] MEDS ORDERED: METHYLENE BLUE 1% 10 ML INJ ONE (07:24)
[2017-08-04] MEDS ORDERED: morphine SULFATE/PF (10 MG/10 ML) INJ ONE (08:56)
[2017-08-04] MEDS ORDERED: FENTAnyl 50 MCG/ML VIAL ONE ×2 (08:56→10:11)
[2017-08-04] MEDS: MUPIROCIN 2% 22 GM OINT TOP SCH ×2 (09:00→20:35)
[2017-08-04] MEDS ORDERED: MIDAZOLAM 1 MG/ML 2 ML INJ ONE (09:03)
[2017-08-04] MEDS ORDERED: DEXAMETHASONE 4 MG/ML 1 ML INJ ONE (09:30)
[2017-08-04] MEDS ORDERED: CEFAZOLIN 1 GM INJ ONE (10:11)
[2017-08-04] MEDS ORDERED: metroNIDAZOLE 500 MG/NS (PMX) 100 ML IVPB ONE (10:12)
--- NOTE | 2017-08-04 10:53 | CONS ---
Date/Time of Note Date/Time of Note DATE: 08/04/17 TIME: 7:11 VK LE Assessment/Plan Assessment/Plan Chief Complaint/Hosp Course bilateral pulmonary emboli WITH Acute respiratory distress MOST LIKELY 2 TO UNDERLING NEOPLASIA, CONSIDERING PELVIC MASS AND INCREASED CE 125 PT DOESN'T NEED ANY ADDITIONAL HYPERCOAG W-UP AT THIS POINT, WILL PROCEED IF NO NEOPLASIA IDENTIFIED heparin drip- DC FOR SURGERY R ADNEXAL MASS Abdominal pain secondary to probable ovarian torsion versus bleeding neoplasm versus a functional cyst with persistent bleeding Plan was for laparoscopic USO yesterday but was canceled secondary to hypoxia CTA of chest showed bilateral pulmonary emboli, continue heparin drip Monitor for drop in hemoglobin in particular while on heparin as patient does appear to have a bleeding ovarian cyst or tumor, benefits of heparin drip outweigh risk of bleeding, this was discussed with patient and family IVC filter surgery with gynecology oncology with Dr Nicholas TODAY Indeterminate 7.0 cm ovoid mass is again seen in the right adnexa, similar in appearance to prior CT and MRI exams dating back to . Recent prior MRI demonstrates areas of T2 hypointensity and precontrast T1 hyperintensity in this location, suggestive of blood products within this lesion, possibly indicating hemorrhagic ovarian cyst or endometrioma. Mild amount of ascites is present, increased from the prior CT. There is no bowel obstruction or perforation. Small left pleural effusion and bibasilar atelectasis are noted, also increased. CA 125 - 544 Leukocytosis-likely reactive Normocytic anemia secondary to chronic disease versus acute blood loss Problems: Consultation Date/Type/Reason Admit Date/Time Jul 29, 2017 at 06:13 Initial Consult Date 08/01/17 Type of Consultation: [facility] Referring Provider: FARZANEH GREEN 24 HR Interval Summary Free Text/Dictation SURGERY TODAY Exam/Review of Systems Vital Signs Vitals Vital Signs Date Time Temp Pulse Resp B/P Pulse Ox O2 Delivery O2 Flow Rate FiO2 08/04/17 08:30 Nasal Cannula 2.0 08/04/17 08:00 74 08/04/17 07:52 98.8 17 146/77 96 Intake and Output 08/03/17 08/03/17 08/04/17 15:00 23:00 07:00 Intake Total 115 ml 900 ml 600 ml Output Total 1000 ml Balance 115 ml 900 ml -400 ml Exam GENERAL: Morbidly obese lady comfortable at rest on nasal cannula oxygen VITAL SIGNS: per chart NECK: Supple. No JVD or lymphadenopathy. CARDIAC EXAM: S1, S2. No added sounds or murmurs. CHEST: clear bilaterally, No added sounds, rales or wheezes ABDOMEN: Soft, nontender. No guarding or rebound. EXTREMITIES: No cyanosis, clubbing or edema. NEUROLOGIC: Generalized weakness. No focal deficits. Results Result Diagram: 08/04/17 0713 08/04/17 0713 Results 24 hrs Laboratory Tests Test 08/03/17 14:35 08/03/17 20:32 08/03/17 20:33 08/03/17 22:50 Activated Partial Thromboplast Time 77.2 *H 67.2 H Prothrombin Time 13.8 Prothrombin Time Ratio 1.1 INR International Normalized Ratio 1.06 Sodium Level 138 Potassium Level 3.4 L Chloride Level 102 Carbon Dioxide Level 29 Anion Gap 10 Blood Urea Nitrogen 5 L Creatinine 0.57 Glucose Level 133 Calcium Level 8.4 Urine Color STRAW Urine Clarity CLEAR Urine pH 8.0 Urine Specific [place] 1.005 Urine Ketones NEGATIVE Urine Nitrite NEGATIVE Urine Bilirubin NEGATIVE Urine Urobilinogen NEGATIVE Urine Leukocyte Esterase NEGATIVE Urine Microscopic RBC 8 H Urine Microscopic WBC 1 Urine Hemoglobin 1+ H Urine Glucose NEGATIVE Urine Total Protein NEGATIVE Test 08/04/17 07:13 White Blood Count 5.1 Red Blood Count 3.83 L Hemoglobin 9.7 L Hematocrit 31.3 L Mean Corpuscular Volume 81.7 L Mean Corpuscular Hemoglobin 25.3 L Mean Corpuscular Hemoglobin Concent 31.0 L Red Cell Distribution Width 16.7 H Platelet Count 184 Mean Platelet Volume 11.3 H Neutrophils % 61.9 Lymphocytes % 26.6 Monocytes % 7.3 Eosinophils % 2.6 Basophils % 0.2 Nucleated Red Blood Cells % 0.0 Neutrophils # 3.1 Lymphocytes # 1.4 Monocytes # 0.4 Eosinophils # 0.1 Basophils # 0.0 Nucleated Red Blood Cells # 0.0 Activated Partial Thromboplast Time 26.1 Sodium Level 139 Potassium Level 3.1 L Chloride Level 102 Carbon Dioxide Level 30 Anion Gap 10 Blood Urea Nitrogen 6 L Creatinine 0.58 Glucose Level 96 Calcium Level 8.6 Medications Medications Current Medications Potassium Chloride/Sodium Chloride (NS-KCl 20 Meq) 1,000 ml @ 50 mls/hr Q20H IV Last administered on 08/03/17t 06:10; Admin Dose 50 MLS/HR; Start at 20:00 Hydromorphone HCl (Dilaudid) 1 mg Q4H PRN IV PAIN Last administered on 11:34; Admin Dose 1 MG; Start 07/30/17 at 02:30 Simethicone (Mylicon) 80 mg Q6H PRN PO DISTENSION/GAS/BLOATING Last administered on 08/01/17 08:49; Admin Dose 80 MG; Start 07/31/17 at 14:30 Morphine Sulfate (morphine) 4 mg Q3H PRN IV PAIN LEVEL 4-7 Last administered on 08/03/17 22:38; Admin Dose 4 MG; Start 07/31/17 at 20:00 Pantoprazole (Protonix Tab) 40 mg DAILY@06 PO Last administered on 08/03/17 06:10; Admin Dose 40 MG; Start 08/02/17 at 06:00 Ondansetron HCl (Zofran Inj) 4 mg Q6H PRN IV NAUSEA AND/OR VOMITING; Start at 12:30 Labetalol HCl (Labetalol) 20 mg Q4 PRN IV SBP >170 Last administered on 06:15; Admin Dose 20 MG; Start 08/01/17 at 14:30 Mupirocin (Bactroban) 1 applic BID TOP Last administered on 08/03/17 21:00; Admin Dose 1 APPLIC; Start 08/01/17 at 21:00; Stop 08/10/17 at 22:00 RANDALL DELUCA MD Aug 04, 2017 10:52
[2017-08-04] MEDS ORDERED: ONDANSETRON 4 MG INJ ONE (11:12)
[2017-08-04] MEDS ORDERED: SUGAMMADEX SODIUM 200 MG/2 ML VIAL IV ONE (11:14)
[2017-08-04] MEDS ORDERED: METOCLOPRAMIDE 10 MG INJ IV PRN (11:30)
[2017-08-04] MEDS ORDERED: EPHEDrine SULFATE 50 MG/5 ML SYG IV PRN (11:30)
[2017-08-04] MEDS ORDERED: LABETALOL HCL 20MG INJ IV PRN (11:30)
[2017-08-04] MEDS ORDERED: MIDAZOLAM 1 MG/ML 2 ML INJ IV PRN (11:30)
[2017-08-04] MEDS ORDERED: FENTAnyl 50 MCG/ML VIAL IV PRN ×3 (11:30)
[2017-08-04] MEDS ORDERED: ZOLPIDEM 5 MG TAB PO PRN (11:30)
[2017-08-04] MEDS ORDERED: DIPHENHYDRAMINE 50 MG INJ IV PRN ×3 (11:30→12:00)
[2017-08-04] MEDS ORDERED: ONDANSETRON 4 MG INJ IV PRN ×3 (11:30→12:00)
[2017-08-04] MEDS ORDERED: NALOXONE (0.4 MG/ML) INJ IV PRN (11:30)
[2017-08-04] MEDS ORDERED: MEPERIDINE 25 MG INJ IV PRN (11:30)
[2017-08-04] MEDS ORDERED: KETOROLAC 30 MG INJ IV PRN ×2 (11:30)
[2017-08-04] MEDS ORDERED: hydrALAzine 20 MG INJ IV PRN (11:30)
[2017-08-04] MEDS ORDERED: HYDROmorphONE 0.5 MG/0.5 ML SYG IV PRN ×2 (11:30)
[2017-08-04] MEDS ORDERED: HYDROmorphONE (0.2 MG/ML) 10ML SYG IV PRN ×3 (11:30)
--- NOTE | 2017-08-04 11:59 | HPN ---
Date/Time of Note Date/Time of Note DATE: 08/04/17 TIME: 11:59 Interval H&P Admission Note Pt. seen H&P reviewed: No system changes KIRSTIE CROSS MD Aug 04, 2017 11:59
[2017-08-04] MEDS ORDERED: CEFAZOLIN 1 GM in SOD CHLORIDE 0.9% 100 ML IVPB SCH (12:00)
[2017-08-04] MEDS ORDERED: morphine 2 MG INJ IV PRN (12:00)
--- NOTE | 2017-08-04 12:05 | SIPON ---
Date/Time of Note Date/Time of Note DATE: 08/04/17 TIME: 12:01 Operative Report Preoperative Diagnosis Pelvic mass, intraperitoneal bleeding and DVT Postoperative Diagnosis same with F.S. consistent with endometrioma and visually partial torsion Operation/Procedure Performed laparoscopic RSO, UD, enterolysis Surgeon see signature line assisted living nursing director Bronwyn BEAUCHAMP Anesthesia: other Estimated blood loss: 50 - 100 ml's Transfusion Required none Specimen multiple Grafts/Implants none Complications none KIRSTIE CROSS MD Aug 04, 2017 12:05
--- NOTE | 2017-08-04 12:05 | SIPON ---
Date/Time of Note Date/Time of Note DATE: 08/04/17 TIME: 12:01 Operative Report Preoperative Diagnosis Pelvic mass, intraperitoneal bleeding and DVT Postoperative Diagnosis same with F.S. consistent with endometrioma and visually partial torsion Operation/Procedure Performed laparoscopic RSO, UD, enterolysis Surgeon see signature line quality control assistant Bronwyn BEAUCHAMP Anesthesia: other Estimated blood loss: 50 - 100 ml's Transfusion Required none Specimen multiple Grafts/Implants none Complications none KIRSTIE CROSS MD Aug 04, 2017 12:05
--- NOTE | 2017-08-04 12:05 | SIPON ---
Date/Time of Note Date/Time of Note DATE: 08/04/17 TIME: 12:01 Operative Report Preoperative Diagnosis Pelvic mass, intraperitoneal bleeding and DVT Postoperative Diagnosis same with F.S. consistent with endometrioma and visually partial torsion Operation/Procedure Performed laparoscopic RSO, UD, enterolysis Surgeon see signature line server assistant Bronwyn BEAUCHAMP Anesthesia: other Estimated blood loss: 50 - 100 ml's Transfusion Required none Specimen multiple Grafts/Implants none Complications none KIRSTIE CROSS MD Aug 04, 2017 12:05
[2017-08-04] MEDS: NS + KCL 20 MEQ 1,000 ML IV SCH (13:13)
[2017-08-04] MEDS: HYDROmorphONE 0.5 MG/0.5 ML SYG IV PRN (13:29)
--- NOTE | 2017-08-04 13:48 | CONS ---
Date/Time of Note Date/Time of Note DATE: 08/04/17 TIME: 13:47 Consult Date/Type/Reason Admit Date/Time Jul 29, 2017 at 06:13 Initial Consult Date 08/01/17 Type of Consultation: Pulmonary Ordering Provider: FARZANEH GREEN Subjective Patient scheduled for gynecological surgery today. Objective Vital Signs Date Time Temp Pulse Resp B/P Pulse Ox O2 Delivery O2 Flow Rate FiO2 08/04/17 13:17 97.6 63 18 148/72 93 Nasal Cannula 3.0 Intake and Output 08/03/17 08/03/17 08/04/17 15:00 23:00 07:00 Intake Total 115 ml 900 ml 600 ml Output Total 1000 ml Balance 115 ml 900 ml -400 ml Exam GENERAL: Morbidly obese lady comfortable at rest no acute distress VITAL SIGNS: per chart NECK: Supple. No JVD or lymphadenopathy. CARDIAC EXAM: S1, S2. No added sounds or murmurs. CHEST: Diminished air entry both lung bases ABDOMEN: Soft, nontender. No guarding or rebound. EXTREMITIES: No cyanosis, clubbing or edema. NEUROLOGIC: Generalized weakness. No focal deficits. Results/Medications Result Diagram: 08/04/17 1224 08/04/17 1224 Results 24 hrs Laboratory Tests Test 08/03/17 14:35 08/03/17 20:32 08/03/17 20:33 08/03/17 22:50 Activated Partial Thromboplast Time 77.2 *H 67.2 H Prothrombin Time 13.8 Prothrombin Time Ratio 1.1 INR International Normalized Ratio 1.06 Sodium Level 138 Potassium Level 3.4 L Chloride Level 102 Carbon Dioxide Level 29 Anion Gap 10 Blood Urea Nitrogen 5 L Creatinine 0.57 Glucose Level 133 Calcium Level 8.4 Urine Color STRAW Urine Clarity CLEAR Urine pH 8.0 Urine Specific [place] 1.005 Urine Ketones NEGATIVE Urine Nitrite NEGATIVE Urine Bilirubin NEGATIVE Urine Urobilinogen NEGATIVE Urine Leukocyte Esterase NEGATIVE Urine Microscopic RBC 8 H Urine Microscopic WBC 1 Urine Hemoglobin 1+ H Urine Glucose NEGATIVE Urine Total Protein NEGATIVE Test 08/04/17 07:13 08/04/17 12:24 White Blood Count 5.1 7.9 # Red Blood Count 3.83 L 4.18 L Hemoglobin 9.7 L 11.0 L Hematocrit 31.3 L 34.8 L Mean Corpuscular Volume 81.7 L 83.3 Mean Corpuscular Hemoglobin 25.3 L 26.3 L Mean Corpuscular Hemoglobin Concent 31.0 L 31.6 L Red Cell Distribution Width 16.7 H 16.5 H Platelet Count 184 178 Mean Platelet Volume 11.3 H 10.7 H Neutrophils % 61.9 80.2 H Lymphocytes % 26.6 16.0 Monocytes % 7.3 1.9 Eosinophils % 2.6 0.3 Basophils % 0.2 0.3 Nucleated Red Blood Cells % 0.0 0.0 Neutrophils # 3.1 6.4 Lymphocytes # 1.4 1.3 Monocytes # 0.4 0.2 L Eosinophils # 0.1 0.0 Basophils # 0.0 0.0 Nucleated Red Blood Cells # 0.0 0.0 Activated Partial Thromboplast Time 26.1 Sodium Level 139 141 Potassium Level 3.1 L 3.7 Chloride Level 102 103 Carbon Dioxide Level 30 29 Anion Gap 10 13 Blood Urea Nitrogen 6 L 7 Creatinine 0.58 0.67 Glucose Level 96 145 # Calcium Level 8.6 8.5 Medications Current Medications Potassium Chloride/Sodium Chloride (NS-KCl 20 Meq) 1,000 ml @ 50 mls/hr Q20H IV Last administered on 08/03/17 06:10; Admin Dose 50 MLS/HR; Start at 20:00 Hydromorphone HCl (Dilaudid) 1 mg Q4H PRN IV PAIN Last administered on 11:34; Admin Dose 1 MG; Start 07/30/17 at 02:30 Simethicone (Mylicon) 80 mg Q6H PRN PO DISTENSION/GAS/BLOATING Last administered on 08/01/17 08:49; Admin Dose 80 MG; Start 07/31/17 at 14:30 Morphine Sulfate (morphine) 4 mg Q3H PRN IV PAIN LEVEL 4-7 Last administered on 08/03/17 22:38; Admin Dose 4 MG; Start 07/31/17 at 20:00 Pantoprazole (Protonix Tab) 40 mg DAILY@06 PO Last administered on 08/03/17 06:10; Admin Dose 40 MG; Start 08/02/17 at 06:00 Ondansetron HCl (Zofran Inj) 4 mg Q6H PRN IV NAUSEA AND/OR VOMITING; Start at 12:30 Labetalol HCl (Labetalol) 20 mg Q4 PRN IV SBP >170 Last administered on 06:15; Admin Dose 20 MG; Start 08/01/17 at 14:30 Mupirocin (Bactroban) 1 applic BID TOP Last administered on 08/03/17 21:00; Admin Dose 1 APPLIC; Start 08/01/17 at 21:00; Stop 08/10/17 at 22:00 Hydromorphone HCl (Dilaudid) 0.2 mg Q2H PRN IV PAIN LEVEL 1-5; Start 08/04/17 at 11:30 Hydromorphone HCl (Dilaudid) 0.4 mg Q2H PRN IV PAIN LEVEL 6-10; Start 08/04/17 at 11:30 Ketorolac Tromethamine (Toradol) 30 mg Q6H PRN IV PAIN LEVEL 6-10; Start at 11:30; Stop 08/07/17 at 11:29 Diphenhydramine HCl (Benadryl) 25 mg Q4H PRN IV PRURITUS; Start 08/04/17 at 11: 30 Ondansetron HCl (Zofran Inj) 4 mg Q6H PRN IV NAUSEA AND/OR VOMITING; Start 08/04/17 at 11:30 Naloxone HCl 0.2 mg 0.2 mg Q2M PRN IV FOR RESP RATE 8 OR LESS; Start 08/04/17 at 11:30 Metronidazole (Flagyl 500 Mg (Pmx)) 100 ml @ 100 mls/hr Q8 IVPB ; Start at 14:00; Stop 08/05/17 at 06:59 Hydromorphone HCl (Dilaudid) 0.5 mg Q6H PRN IV PAIN LEVEL 6-10 Last administered on 08/04/17 13:29; Admin Dose 0.5 MG; Start 08/04/17 at 12:00 Morphine Sulfate (morphine) 2 mg Q2H PRN IV PAIN LEVEL 6-10; Start 08/04/17 at 12:00 Acetaminophen/ Hydrocodone Bitart ([place] (5/325)) 1 tab Q6H PRN PO PAIN LEVEL 6 -10; Start 08/04/17 at 12:00 Diphenhydramine HCl (Benadryl) 25 mg Q6H PRN IV ITCHING; Start 08/04/17 at 12: 00 Ondansetron HCl (Zofran Inj) 4 mg Q6H PRN IV NAUSEA AND/OR VOMITING; Start 08/04/17 at 12:00 Famotidine 20 mg 20 mg Q12 IV ; Start 08/04/17 at 21:00 Potassium Chloride 20 meq/ Lactated Ringer's 1,010 ml @ 100 mls/hr Q10H6M IV ; Start 08/04/17 at 14:30 Cefazolin Sodium (Ancef 1 Gm/50 ml (Pmx)) 50 ml @ 100 mls/hr Q8 IVPB ; Start 08/04/17 at 14:00 Assessment/Plan Chief Complaint/Hosp Course IMPRESSION AND PLAN: 1. Acute abdomen with right adnexal mass, possible hemorrhagic ovarian cyst. Scheduled for surgery today 2. Acute bilateral submassive pulmonary emboli with hypoxemia, No hemodynamic compromise at present, hypoxemia secondary to alveolar hypoventilation in addition to pulmonary emboli. 3. Morbid obesity. 4. Probable obstructive sleep apnea. PLAN: 1. Supplemental O2. 2. Incentive spirometry. Progressive postop incentive spirometry and encourage out of bed 3. IV heparin drip. Resume when stable from surgical standpoint 4. Gynecology recommendations postop. 5. Echocardiogram. Preserved ejection fraction. No evidence of heart failure. Stage I diastolic dysfunction. Problems: ANKIT VIVEROS MD, [facility] Aug 04, 2017 13:48
[2017-08-04] MEDS ORDERED: CEFAZOLIN 1 GM/50 ML (PMX) 50 ML IVPB SCH (14:00)
[2017-08-04] MEDS ORDERED: metroNIDAZOLE 500 MG/NS (PMX) 100 ML IVPB SCH (14:00)
[2017-08-04] MEDS ORDERED: POTASSIUM CHLORIDE 20 MEQ in LACTATED RINGER'S 1,000 ML IV SCH (14:30)
[2017-08-04] MEDS: CEFAZOLIN 1 GM/50 ML (PMX) 50 ML IVPB SCH (17:05)
[2017-08-04] MEDS: metroNIDAZOLE 500 MG/NS (PMX) 100 ML IVPB SCH (17:50)
--- NOTE | 2017-08-04 18:03 | CONS ---
Date/Time of Note Date/Time of Note DATE: 08/04/17 TIME: 18:02 Assessment/Plan Assessment/Plan Chief Complaint/Hosp Course 47 yo female wtih PE and ovarian cancer PE: - s/p IVC filter - heparin drip perioperatively, then lifelong lovenox for malignancy associated DVT Ovarian cancer: - Management per oncology and surgical oncology Problems: Consultation Date/Type/Reason Admit Date/Time Jul 29, 2017 at 06:13 Initial Consult Date 08/01/17 Type of Consultation: Pulmonary Referring Provider: FARZANEH GREEN 24 HR Interval Summary Free Text/Dictation To OR today Exam/Review of Systems Vital Signs Vitals Vital Signs Date Time Temp Pulse Resp B/P Pulse Ox O2 Delivery O2 Flow Rate FiO2 08/04/17 17:58 64 18 136/76 97 Nasal Cannula 3.0 08/04/17 15:54 98.7 Intake and Output 08/03/17 08/03/17 08/04/17 15:00 23:00 07:00 Intake Total 115 ml 900 ml 600 ml Output Total 1000 ml Balance 115 ml 900 ml -400 ml Results Result Diagram: 08/04/17 1224 08/04/17 1224 Results 24 hrs Laboratory Tests Test 08/03/17 20:32 08/03/17 20:33 08/03/17 22:50 08/04/17 07:13 Prothrombin Time 13.8 Prothrombin Time Ratio 1.1 INR International Normalized Ratio 1.06 Sodium Level 138 139 Potassium Level 3.4 L 3.1 L Chloride Level 102 102 Carbon Dioxide Level 29 30 Anion Gap 10 10 Blood Urea Nitrogen 5 L 6 L Creatinine 0.57 0.58 Glucose Level 133 96 Calcium Level 8.4 8.6 Activated Partial Thromboplast Time 67.2 H 26.1 Urine Color STRAW Urine Clarity CLEAR Urine pH 8.0 Urine Specific [place] 1.005 Urine Ketones NEGATIVE Urine Nitrite NEGATIVE Urine Bilirubin NEGATIVE Urine Urobilinogen NEGATIVE Urine Leukocyte Esterase NEGATIVE Urine Microscopic RBC 8 H Urine Microscopic WBC 1 Urine Hemoglobin 1+ H Urine Glucose NEGATIVE Urine Total Protein NEGATIVE White Blood Count 5.1 Red Blood Count 3.83 L Hemoglobin 9.7 L Hematocrit 31.3 L Mean Corpuscular Volume 81.7 L Mean Corpuscular Hemoglobin 25.3 L Mean Corpuscular Hemoglobin Concent 31.0 L Red Cell Distribution Width 16.7 H Platelet Count 184 Mean Platelet Volume 11.3 H Neutrophils % 61.9 Lymphocytes % 26.6 Monocytes % 7.3 Eosinophils % 2.6 Basophils % 0.2 Nucleated Red Blood Cells % 0.0 Neutrophils # 3.1 Lymphocytes # 1.4 Monocytes # 0.4 Eosinophils # 0.1 Basophils # 0.0 Nucleated Red Blood Cells # 0.0 Test 08/04/17 12:24 White Blood Count 7.9 # Red Blood Count 4.18 L Hemoglobin 11.0 L Hematocrit 34.8 L Mean Corpuscular Volume 83.3 Mean Corpuscular Hemoglobin 26.3 L Mean Corpuscular Hemoglobin Concent 31.6 L Red Cell Distribution Width 16.5 H Platelet Count 178 Mean Platelet Volume 10.7 H Neutrophils % 80.2 H Lymphocytes % 16.0 Monocytes % 1.9 Eosinophils % 0.3 Basophils % 0.3 Nucleated Red Blood Cells % 0.0 Neutrophils # 6.4 Lymphocytes # 1.3 Monocytes # 0.2 L Eosinophils # 0.0 Basophils # 0.0 Nucleated Red Blood Cells # 0.0 Sodium Level 141 Potassium Level 3.7 Chloride Level 103 Carbon Dioxide Level 29 Anion Gap 13 Blood Urea Nitrogen 7 Creatinine 0.67 Glucose Level 145 # Calcium Level 8.5 Medications Medications Current Medications Potassium Chloride/Sodium Chloride (NS-KCl 20 Meq) 1,000 ml @ 50 mls/hr Q20H IV Last administered on 08/03/17 06:10; Admin Dose 50 MLS/HR; Start at 20:00 Hydromorphone HCl (Dilaudid) 1 mg Q4H PRN IV PAIN Last administered on 11:34; Admin Dose 1 MG; Start 07/30/17 at 02:30 Simethicone (Mylicon) 80 mg Q6H PRN PO DISTENSION/GAS/BLOATING Last administered on 08/01/17 08:49; Admin Dose 80 MG; Start 07/31/17 at 14:30 Morphine Sulfate (morphine) 4 mg Q3H PRN IV PAIN LEVEL 4-7 Last administered on 08/03/17 22:38; Admin Dose 4 MG; Start 07/31/17 at 20:00 Pantoprazole (Protonix Tab) 40 mg DAILY@06 PO Last administered on 08/03/17 06:10; Admin Dose 40 MG; Start 08/02/17 at 06:00 Labetalol HCl (Labetalol) 20 mg Q4 PRN IV SBP >170 Last administered on 06:15; Admin Dose 20 MG; Start 08/01/17 at 14:30 Mupirocin (Bactroban) 1 applic BID TOP Last administered on 08/03/17 21:00; Admin Dose 1 APPLIC; Start 08/01/17 at 21:00; Stop 08/10/17 at 22:00 Hydromorphone HCl (Dilaudid) 0.2 mg Q2H PRN IV PAIN LEVEL 1-5 Last administered on 08/04/17 17:03; Admin Dose 0.2 MG; Start 08/04/17 at 11:30 Hydromorphone HCl (Dilaudid) 0.4 mg Q2H PRN IV PAIN LEVEL 6-10; Start 08/04/17 at 11:30 Ketorolac Tromethamine (Toradol) 30 mg Q6H PRN IV PAIN LEVEL 6-10; Start at 11:30; Stop 08/07/17 at 11:29 Diphenhydramine HCl (Benadryl) 25 mg Q4H PRN IV PRURITUS; Start 08/04/17 at 11: 30 Naloxone HCl (Narcan) 0.2 mg Q2M PRN IV FOR RESP RATE 8 OR LESS; Start at 11:30 Hydromorphone HCl (Dilaudid) 0.5 mg Q6H PRN IV PAIN LEVEL 6-10 Last administered on 08/04/17 13:29; Admin Dose 0.5 MG; Start 08/04/17 at 12:00 Morphine Sulfate (morphine) 2 mg Q2H PRN IV PAIN LEVEL 6-10; Start 08/04/17 at 12:00 Acetaminophen/ Hydrocodone Bitart ([place] (5/325)) 1 tab Q6H PRN PO PAIN LEVEL 6 -10; Start 08/04/17 at 12:00 Diphenhydramine HCl (Benadryl) 25 mg Q6H PRN IV ITCHING; Start 08/04/17 at 12: 00 Ondansetron HCl (Zofran Inj) 4 mg Q6H PRN IV NAUSEA AND/OR VOMITING Last administered on 08/04/17 17:50; Admin Dose 4 MG; Start 08/04/17 at 12:00 Famotidine 20 mg 20 mg Q12 IV ; Start 08/04/17 at 21:00 Potassium Chloride 20 meq/ Lactated Ringer's 1,010 ml @ 100 mls/hr Q10H6M IV Last administered on 08/04/17 16:18; Admin Dose 100 MLS/HR; Start 08/04/17 at 14:30 Cefazolin Sodium 50 ml @ 100 mls/hr Q8 IVPB Last administered on 08/04/17 17: 05; Admin Dose 100 MLS/HR; Start 08/04/17 at 17:00; Stop 08/05/17 at 06:29 Metronidazole (Flagyl 500 Mg (Pmx)) 100 ml @ 100 mls/hr Q8 IVPB Last administered on 08/04/17 17:50; Admin Dose 100 MLS/HR; Start 08/04/17 at 17:30 ; Stop 08/05/17 at 08:59 PAOLA VALVERDE MD Aug 04, 2017 18:03
[2017-08-04] MEDS: FAMOTIDINE 20 MG INJ IV SCH (20:35)
[2017-08-05] VITALS (10 sets, daily range): BP systolic 116–129; BP diastolic 55–78; PULSE 58–83; RESP 17–20
[2017-08-05] MEDS: CEFAZOLIN 1 GM/50 ML (PMX) 50 ML IVPB SCH ×2 (00:22→06:35)
[2017-08-05] MEDS: metroNIDAZOLE 500 MG/NS (PMX) 100 ML IVPB SCH ×2 (01:16→07:33)
[2017-08-05] MEDS: PANTOPRAZOLE (EC) 40 MG TAB PO SCH (06:35)
[2017-08-05] MEDS: HYDROmorphONE 0.5 MG/0.5 ML SYG IV PRN ×2 (06:37→20:31)
[2017-08-05] MEDS ORDERED: PROPOFOL 200 MG INJ ONE (07:00)
[2017-08-05] MEDS ORDERED: ROCURONIUM 50 MG INJ ONE (07:00)
[2017-08-05] MEDS ORDERED: LIDOCAINE 2% (SDV) 5 ML INJ ONE (07:00)
[2017-08-05] MEDS: MUPIROCIN 2% 22 GM OINT TOP SCH (09:26)
[2017-08-05] MEDS: FAMOTIDINE 20 MG INJ IV SCH (09:28)
--- NOTE | 2017-08-05 10:19 | OPPN ---
Date/Time of Note Date/Time of Note DATE: 08/05/17 TIME: 10:17 Anesthesia Follow up Anesthesia Follow up Last documented vital signs Vital Signs Date Time Temp Pulse Resp B/P Pulse Ox O2 Delivery O2 Flow Rate FiO2 08/05/17 08:25 75 08/05/17 07:08 98.7 19 129/77 96 08/05/17 01:21 2.0 27 08/04/17 20:00 Nasal Cannula Respiratory function: WNL Cardiovascular function: WNL Comments post op day one status post intrathecal duramorph for post operative pain management. No complications noted, vss. Satisfactory pain management with spinal intrathecal morphine and parenteral supplementations. GARRETT GANN Aug 05, 2017 10:19
--- NOTE | 2017-08-05 11:32 | CONS ---
Date/Time of Note Date/Time of Note DATE: 08/05/17 TIME: 11:31 Consult Date/Type/Reason Admit Date/Time Jul 29, 2017 at 06:13 Initial Consult Date 08/01/17 Type of Consultation: Pulmonary Ordering Provider: FARZANEH GREEN Subjective Patient comfortable this morning. No new events Objective Vital Signs Date Time Temp Pulse Resp B/P Pulse Ox O2 Delivery O2 Flow Rate FiO2 08/05/17 11:27 98.5 73 18 121/69 92 08/05/17 01:21 2.0 27 08/04/17 20:00 Nasal Cannula Intake and Output 08/04/17 08/04/17 08/05/17 15:00 23:00 07:00 Intake Total 1900 ml 1250 ml 1400 ml Output Total 350 ml 2200 ml 900 ml Balance 1550 ml -950 ml 500 ml Exam GENERAL: Morbidly obese lady comfortable at rest no acute distress VITAL SIGNS: per chart NECK: Supple. No JVD or lymphadenopathy. CARDIAC EXAM: S1, S2. No added sounds or murmurs. CHEST: Diminished air entry both lung bases ABDOMEN: Soft, nontender. No guarding or rebound. EXTREMITIES: No cyanosis, clubbing or edema. NEUROLOGIC: Generalized weakness. No focal deficits. Results/Medications Result Diagram: 08/05/17 0721 08/05/17 0721 Results 24 hrs Laboratory Tests Test 08/04/17 12:24 08/05/17 06:52 08/05/17 07:21 White Blood Count 7.9 # 9.3 Red Blood Count 4.18 L 3.55 L Hemoglobin 11.0 L 9.0 L Hematocrit 34.8 L 28.3 L Mean Corpuscular Volume 83.3 79.7 L Mean Corpuscular Hemoglobin 26.3 L 25.4 L Mean Corpuscular Hemoglobin Concent 31.6 L 31.8 L Red Cell Distribution Width 16.5 H 16.0 H Platelet Count 178 177 Mean Platelet Volume 10.7 H 11.5 H Neutrophils % 80.2 H 72.7 Lymphocytes % 16.0 20.0 Monocytes % 1.9 6.3 Eosinophils % 0.3 0.3 Basophils % 0.3 0.1 Nucleated Red Blood Cells % 0.0 0.0 Neutrophils # 6.4 6.8 Lymphocytes # 1.3 1.9 Monocytes # 0.2 L 0.6 Eosinophils # 0.0 0.0 Basophils # 0.0 0.0 Nucleated Red Blood Cells # 0.0 0.0 Sodium Level 141 137 Potassium Level 3.7 3.3 L Chloride Level 103 101 Carbon Dioxide Level 29 29 Anion Gap 13 10 Blood Urea Nitrogen 7 10 Creatinine 0.67 0.63 Glucose Level 145 # 98 # Calcium Level 8.5 8.4 Lab Scanned Report BLOOD TRANSFUSION Prothrombin Time 13.9 Prothrombin Time Ratio 1.1 INR International Normalized Ratio 1.07 Activated Partial Thromboplast Time 24.6 L Total Bilirubin 0.2 Direct Bilirubin 0.00 Indirect Bilirubin 0.2 Aspartate Amino Transf (AST/SGOT) 22 Alanine Aminotransferase (ALT/SGPT) 35 Alkaline Phosphatase 71 Total Protein 6.5 Albumin 2.9 L Globulin 3.60 H Albumin/Globulin Ratio 0.80 Medications Current Medications Hydromorphone HCl (Dilaudid) 1 mg Q4H PRN IV PAIN Last administered on 11:34; Admin Dose 1 MG; Start 07/30/17 at 02:30 Simethicone (Mylicon) 80 mg Q6H PRN PO DISTENSION/GAS/BLOATING Last administered on 08/01/17 08:49; Admin Dose 80 MG; Start 07/31/17 at 14:30 Morphine Sulfate (morphine) 4 mg Q3H PRN IV PAIN LEVEL 4-7 Last administered on 08/03/17 22:38; Admin Dose 4 MG; Start 07/31/17 at 20:00 Pantoprazole (Protonix Tab) 40 mg DAILY@06 PO Last administered on 08/05/17 06 :35; Admin Dose 40 MG; Start 08/02/17 at 06:00 Labetalol HCl (Labetalol) 20 mg Q4 PRN IV SBP >170 Last administered on 06:15; Admin Dose 20 MG; Start 08/01/17 at 14:30 Mupirocin (Bactroban) 1 applic BID TOP Last administered on 08/05/17 09:26; Admin Dose 1 APPLIC; Start 08/01/17 at 21:00; Stop 08/10/17 at 22:00 Hydromorphone HCl (Dilaudid) 0.2 mg Q2H PRN IV PAIN LEVEL 1-5 Last administered on 08/04/17 17:03; Admin Dose 0.2 MG; Start 08/04/17 at 11:30 Hydromorphone HCl (Dilaudid) 0.4 mg Q2H PRN IV PAIN LEVEL 6-10; Start 08/04/17 at 11:30 Ketorolac Tromethamine (Toradol) 30 mg Q6H PRN IV PAIN LEVEL 6-10; Start at 11:30; Stop 08/07/17 at 11:29 Diphenhydramine HCl (Benadryl) 25 mg Q4H PRN IV PRURITUS; Start 08/04/17 at 11: 30 Naloxone HCl (Narcan) 0.2 mg Q2M PRN IV FOR RESP RATE 8 OR LESS; Start at 11:30 Hydromorphone HCl (Dilaudid) 0.5 mg Q6H PRN IV PAIN LEVEL 6-10 Last administered on 08/05/17 06:37; Admin Dose 0.5 MG; Start 08/04/17 at 12:00 Morphine Sulfate (morphine) 2 mg Q2H PRN IV PAIN LEVEL 6-10; Start 08/04/17 at 12:00 Acetaminophen/ Hydrocodone Bitart ([place] (5/325)) 1 tab Q6H PRN PO PAIN LEVEL 6 -10; Start 08/04/17 at 12:00 Diphenhydramine HCl (Benadryl) 25 mg Q6H PRN IV ITCHING; Start 08/04/17 at 12: 00 Ondansetron HCl (Zofran Inj) 4 mg Q6H PRN IV NAUSEA AND/OR VOMITING Last administered on 08/04/17 17:50; Admin Dose 4 MG; Start 08/04/17 at 12:00 Famotidine 20 mg 20 mg Q12 IV Last administered on 08/05/17 09:28; Admin Dose 20 MG; Start 08/04/17 at 21:00 Potassium Chloride/Lactated Ringer's (KCl/Lr) 1,010 ml @ 100 mls/hr Q10H6M IV Last administered on 08/04/17 16:18; Admin Dose 100 MLS/HR; Start 08/04/17 at 14:30 Assessment/Plan Chief Complaint/Hosp Course IMPRESSION AND PLAN: 1. Acute abdomen with right adnexal mass, possible hemorrhagic ovarian cyst. Scheduled for surgery today 2. Acute bilateral submassive pulmonary emboli with hypoxemia, No hemodynamic compromise at present, hypoxemia secondary to alveolar hypoventilation in addition to pulmonary emboli. 3. Morbid obesity. 4. Probable obstructive sleep apnea. PLAN: 1. Supplemental O2. 2. Incentive spirometry. Progressive postop incentive spirometry and encourage out of bed 3. IV heparin drip. Resume when stable from surgical standpoint 4. Gynecology recommendations postop. 5. Echocardiogram. Preserved ejection fraction. No evidence of heart failure. Stage I diastolic dysfunction. Problems: ANKIT VIVEROS MD, [facility] Aug 05, 2017 11:32
[2017-08-05] MEDS ORDERED: IBUPROFEN 400 MG TAB PO PRN (12:30)
[2017-08-05] MEDS ORDERED: HEPARIN (10 UNITS/ML) 5ML SYG IV ONE (12:30)
[2017-08-05] MEDS ORDERED: ACETAMINOPHEN 325 MG TAB PO PRN (12:30)
[2017-08-05] MEDS ORDERED: LIDOCAINE 1% (MPF) 5 ML VIAL SC ONE (12:30)
--- NOTE | 2017-08-05 13:07 | PN ---
Date/Time of Note Date/Time of Note DATE: 08/05/17 TIME: 13:06 Assessment/Plan VTE Prophylaxis VTE Prophylaxis Intervention: LMWH Lines/Catheters IV Catheter Type (from Nrs): Peripheral IV Urinary Cath still in place: Yes (in OR) Reason Cath still needed: other (indicate) Assessment/Plan Chief Complaint/Hosp Course 47 yo female with PE and ovarian cancer PE: - s/p IVC filter - heparin drip perioperatively, then lifelong lovenox for malignancy associated DVT start today Ovarian cancer: - Management per oncology and surgical oncology Advance diet, dc spencer PT/OT Problems: Subjective 24 Hr Interval Summary Free Text/Dictation Passing flatus, wants to eat normal food, very hungry she says Wants spencer out Mild pain, but generally controlled No SOB or chest symptoms Exam/Review of Systems Vital Signs Vitals Vital Signs Date Time Temp Pulse Resp B/P Pulse Ox O2 Delivery O2 Flow Rate FiO2 08/05/17 12:12 74 08/05/17 11:27 98.5 18 121/69 92 08/05/17 01:21 2.0 27 08/04/17 20:00 Nasal Cannula Intake and Output 08/04/17 08/04/17 08/05/17 15:00 23:00 07:00 Intake Total 1900 ml 1250 ml 1400 ml Output Total 350 ml 2200 ml 900 ml Balance 1550 ml -950 ml 500 ml Exam Constitutional: alert, oriented, well developed Psych: nl mood/affect, no complaints Head: atraumatic, normocephalic Eyes: EOMI, PERRL, nl conjunctiva, nl lids, nl sclera ENMT: nl external ears & nose, nl lips & teeth, nl nasal mucosa & septum Neck: non-tender, supple Respiratory: clear to auscultation, normal air movement Cardiovascular: nl pulses, regular rate and rhythm Gastrointestinal: nl liver, spleen, non-tender, soft Musculoskeletal: nl extremities to inspection, nl gait and stance Extremities: normal pulses Neurological: REINFORCEMENT MAKER II-XII intact, nl mental status, nl speech, nl strength Skin: nl turgor, No rash or lesions Lymph: nl lymph nodes Results Result Diagram: 08/05/17 0721 08/05/17 0721 Results 24 hrs Laboratory Tests Test 08/05/17 06:52 08/05/17 07:21 Lab Scanned Report BLOOD TRANSFUSION White Blood Count 9.3 Red Blood Count 3.55 L Hemoglobin 9.0 L Hematocrit 28.3 L Mean Corpuscular Volume 79.7 L Mean Corpuscular Hemoglobin 25.4 L Mean Corpuscular Hemoglobin Concent 31.8 L Red Cell Distribution Width 16.0 H Platelet Count 177 Mean Platelet Volume 11.5 H Neutrophils % 72.7 Lymphocytes % 20.0 Monocytes % 6.3 Eosinophils % 0.3 Basophils % 0.1 Nucleated Red Blood Cells % 0.0 Neutrophils # 6.8 Lymphocytes # 1.9 Monocytes # 0.6 Eosinophils # 0.0 Basophils # 0.0 Nucleated Red Blood Cells # 0.0 Prothrombin Time 13.9 Prothrombin Time Ratio 1.1 INR International Normalized Ratio 1.07 Activated Partial Thromboplast Time 24.6 L Sodium Level 137 Potassium Level 3.3 L Chloride Level 101 Carbon Dioxide Level 29 Anion Gap 10 Blood Urea Nitrogen 10 Creatinine 0.63 Glucose Level 98 # Calcium Level 8.4 Total Bilirubin 0.2 Direct Bilirubin 0.00 Indirect Bilirubin 0.2 Aspartate Amino Transf (AST/SGOT) 22 Alanine Aminotransferase (ALT/SGPT) 35 Alkaline Phosphatase 71 Total Protein 6.5 Albumin 2.9 L Globulin 3.60 H Albumin/Globulin Ratio 0.80 Medications Medications Current Medications Hydromorphone HCl (Dilaudid) 1 mg Q4H PRN IV PAIN Last administered on 11:34; Admin Dose 1 MG; Start 07/30/17 at 02:30 Hydromorphone HCl (Dilaudid) 0.2 mg Q2H PRN IV PAIN LEVEL 1-5 Last administered on 08/04/17 17:03; Admin Dose 0.2 MG; Start 08/04/17 at 11:30 Hydromorphone HCl (Dilaudid) 0.4 mg Q2H PRN IV PAIN LEVEL 6-10; Start 08/04/17 at 11:30 Naloxone HCl (Narcan) 0.2 mg Q2M PRN IV FOR RESP RATE 8 OR LESS; Start at 11:30 Hydromorphone HCl (Dilaudid) 0.5 mg Q6H PRN IV PAIN LEVEL 6-10 Last administered on 08/05/17 06:37; Admin Dose 0.5 MG; Start 08/04/17 at 12:00 Acetaminophen/ Hydrocodone Bitart ([place] (5/325)) 1 tab Q6H PRN PO PAIN LEVEL 6 -10; Start 08/04/17 at 12:00 Ondansetron HCl (Zofran Inj) 4 mg Q6H PRN IV NAUSEA AND/OR VOMITING Last administered on 08/04/17t 17:50; Admin Dose 4 MG; Start 08/04/17 at 12:00 Acetaminophen (Tylenol Tab) 650 mg Q4H PRN PO PAIN LEVEL 1-3; Start 08/05/17 at 12:30 Ibuprofen (Motrin) 400 mg Q6H PRN PO PAIN LEVEL 4-7; Start 08/05/17 at 12:30 PAOLA VALVERDE MD Aug 05, 2017 13:07
[2017-08-05] MEDS: FERROUS SULFATE (SR) 142 MG TAB PO SCH ×2 (13:30→20:30)
--- NOTE | 2017-08-05 15:45 | PN ---
Date/Time of Note Date/Time of Note DATE: 08/05/17 TIME: 15:41 Assessment/Plan VTE Prophylaxis VTE Prophylaxis Intervention: heparin Lines/Catheters IV Catheter Type (from Nrs): Peripheral IV Urinary Cath still in place: Yes (in OR) Reason Cath still needed: urinary retention Assessment/Plan Chief Complaint/Hosp Course pelvic mass and pain and anemia- although refused to cooperate with all exams and studies; risk of bleeding tumor or torsion Problems: Assessment/Plan A- doing well P- consider Eliquis as she is doing well, mass that was compressing retroperitoneal vessels was removed and can go home in 1-3 d Subjective 24 Hr Interval Summary Free Text/Dictation Pt indicates less pain. + flatus Exam/Review of Systems Vital Signs Vitals Vital Signs Date Time Temp Pulse Resp B/P Pulse Ox O2 Delivery O2 Flow Rate FiO2 08/05/17 15:09 98.7 80 20 120/73 93 08/05/17 01:21 2.0 27 08/04/17 20:00 Nasal Cannula Intake and Output 08/04/17 08/04/17 08/05/17 15:00 23:00 07:00 Intake Total 1900 ml 1250 ml 1400 ml Output Total 350 ml 2200 ml 900 ml Balance 1550 ml -950 ml 500 ml Exam Resp- clear CVS- NSR Abd- soft and minimally NT and clean Ext- NT no edema Results Result Diagram: 08/05/1772008/05/17 0721 Results 24 hrs Laboratory Tests Test 08/05/17 06:52 08/05/17 07:21 Lab Scanned Report BLOOD TRANSFUSION White Blood Count 9.3 Red Blood Count 3.55 L Hemoglobin 9.0 L Hematocrit 28.3 L Mean Corpuscular Volume 79.7 L Mean Corpuscular Hemoglobin 25.4 L Mean Corpuscular Hemoglobin Concent 31.8 L Red Cell Distribution Width 16.0 H Platelet Count 177 Mean Platelet Volume 11.5 H Neutrophils % 72.7 Lymphocytes % 20.0 Monocytes % 6.3 Eosinophils % 0.3 Basophils % 0.1 Nucleated Red Blood Cells % 0.0 Neutrophils # 6.8 Lymphocytes # 1.9 Monocytes # 0.6 Eosinophils # 0.0 Basophils # 0.0 Nucleated Red Blood Cells # 0.0 Prothrombin Time 13.9 Prothrombin Time Ratio 1.1 INR International Normalized Ratio 1.07 Activated Partial Thromboplast Time 24.6 L Sodium Level 137 Potassium Level 3.3 L Chloride Level 101 Carbon Dioxide Level 29 Anion Gap 10 Blood Urea Nitrogen 10 Creatinine 0.63 Glucose Level 98 # Calcium Level 8.4 Total Bilirubin 0.2 Direct Bilirubin 0.00 Indirect Bilirubin 0.2 Aspartate Amino Transf (AST/SGOT) 22 Alanine Aminotransferase (ALT/SGPT) 35 Alkaline Phosphatase 71 Total Protein 6.5 Albumin 2.9 L Globulin 3.60 H Albumin/Globulin Ratio 0.80 Medications Medications Current Medications Hydromorphone HCl (Dilaudid) 1 mg Q4H PRN IV PAIN Last administered on 11:34; Admin Dose 1 MG; Start 07/30/17 at 02:30 Hydromorphone HCl (Dilaudid) 0.2 mg Q2H PRN IV PAIN LEVEL 1-5 Last administered on 08/04/17 17:03; Admin Dose 0.2 MG; Start 08/04/17 at 11:30 Hydromorphone HCl (Dilaudid) 0.4 mg Q2H PRN IV PAIN LEVEL 6-10; Start 08/04/17 at 11:30 Naloxone HCl (Narcan) 0.2 mg Q2M PRN IV FOR RESP RATE 8 OR LESS; Start at 11:30 Hydromorphone HCl (Dilaudid) 0.5 mg Q6H PRN IV PAIN LEVEL 6-10 Last administered on 08/05/17 06:37; Admin Dose 0.5 MG; Start 08/04/17 at 12:00 Acetaminophen/ Hydrocodone Bitart ([place] (5/325)) 1 tab Q6H PRN PO PAIN LEVEL 6 -10; Start 08/04/17 at 12:00 Ondansetron HCl (Zofran Inj) 4 mg Q6H PRN IV NAUSEA AND/OR VOMITING Last administered on 08/04/17 17:50; Admin Dose 4 MG; Start 08/04/17 at 12:00 Acetaminophen (Tylenol Tab) 650 mg Q4H PRN PO PAIN LEVEL 1-3; Start 08/05/17 at 12:30 Enoxaparin Sodium (Lovenox) 100 mg Q12 SC ; Start 08/05/17 at 21:00 Ferrous Sulfate (Slow Fe) 142 mg BID PO ; Start 08/05/17 at 13:30 KIRSTIE CROSS MD 2, 2017 15:45
[2017-08-05] MEDS: HYDROCODONE/APAP (5/325) TAB PO PRN ×2 (16:10→23:33)
[2017-08-05] MEDS ORDERED: SOD CHLORIDE 0.9% 100 ML ONE (17:15)
--- NOTE | 2017-08-05 17:52 | RADRPT ---
PROCEDURE: XR Chest. CLINICAL INDICATION: Check PICC line position. TECHNIQUE: Single frontal view. COMPARISON: 08/03/2017. FINDINGS: There is a left arm PICC line with the tip in the mid superior vena cava. There is bilateral perihi lar interstitial and alveolar disease consistent with pulmonary edema or bilateral pneumonia. The heart is enlarged. There is no pleural effusion. There is no pneumothorax. IMPRESSION: 1. Left arm PICC line tip in satisfactory position. 2. Pulmonary edema or bilateral pneumonia. 3. Cardiomegaly. RPTAT: QQ .Tree Caballero MD, MD Date Time Electronically viewed and signed by .Tree Caballero MD, MD on 08/05/2017 17:52 .R/
--- NOTE | 2017-08-05 17:58 | RADRPT ---
PROCEDURE: Ultrasound guidance for placement of needle in left upper extremity vein. CLINICAL INDICATION: Venous access. TECHNIQUE: Limited sonography of the left upper extremity was performed. Ultrasound images were recorded and s tored in the patient's medical record. COMPARISON: None. FINDINGS: The ultrasound images demonstrate a patent left upper extremity vein. The PICC line was inserted by the PICC line nurse. IMPRESSION: 1. Ultrasound guidance for a needle placement in a left upper extremity vein. 2. The left upper extremity vein is patent. RPTAT: QQ .Tree Caballero MD, MD Date Time Electronically viewed and signed by .Tree Caballero MD, MD on 08/05/2017 17:58 .R/
[2017-08-05] MEDS: ENOXAPARIN 100 MG/ML SYG SC SCH (20:49)
[2017-08-06] VITALS (13 sets, daily range): BP systolic 118–145; BP diastolic 72–87; PULSE 75–82; RESP 18–22
[2017-08-06] MEDS: HYDROmorphONE 0.5 MG/0.5 ML SYG IV PRN ×4 (03:29→18:35)
--- NOTE | 2017-08-06 05:49 | PN ---
Date/Time of Note Date/Time of Note DATE: 08/06/17 TIME: 05:47 Assessment/Plan Lines/Catheters IV C[facility]ter Type (from [facility]): PICC Line Vasquez in Place (from [facility]): Yes Assessment/Plan Chief Complaint/Hosp Course -Bilateral pulmonary artery emboli: It seems the patient has developed pulmonary embolism that seems to be an unprovoked at the moment. It is unclear the source of her emboli as the patient denies any familial thrombotic syndromes or a long travel. The patient mentions that she has not had any changes to daily routine, and denies any herbal medications or use of oral contraceptive pills. There is concern the patient has this right adnexal mass that would need to be worked up for a tumor. Further, there may be compression of her iliac veins with the possibility of developing a clot below the area of compression. I would recommend for the patient to undergo with her NEWS COMMENTATOR intervention and will plan to provide an IVC filter if the patient would be needed to undergo surgery. -S/P IVC Filter Placement -Recommend for the patient to have her IVC filter removed prior to discharge or in the coming week -Optimize vascular status (BP meds, diet, nutrition, exercise, sugar control, antiplatelets and anticoagulation). -Recommend continuing with our anticoagulation -Would recommend for the patient to undergo hypercoagulable workup as she has not had that in the past, as the source of emboli is unclear. -Discussed findings, plan and management with the patient at the bedside and she understands. -Thank you for allowing us to partake in the care of your patient. Please call with any questions. Problems: Subjective 24 Hr Interval Summary no new vascular events overnight Exam/Review of Systems Vital Signs Vitals Vital Signs Date Time Temp Pulse Resp B/P Pulse Ox O2 Delivery O2 Flow Rate FiO2 08/06/17 04:20 99.1 87 20 134/72 97 08/06/17 02:47 2.0 27 08/04/17 20:00 Nasal Cannula Intake and Output 08/05/17 08/05/17 08/06/17 15:00 23:00 07:00 Intake Total 400 ml Output Total 900 ml Balance -500 ml Exam Free Text/Dictation GENERAL: Alert and oriented x3, PULMONARY: Coarse sounds bilaterally, decreased breath sounds at the bases. CARDIOVASCULAR: S1, S2 present. ABDOMEN: Soft, nontender, nondistended. Bowel sounds positive. Large truncal obesity. EXTREMITIES: Lower extremities: Large legs bilaterally. Difficult to palpate the femoral pulse secondary to body habitus. Lower extremities faint pedal pulses. No significant edema identified. Capillary refill 2 to 3 seconds. Motor, sensory intact. Results Result Diagram: 08/05/17 0721 08/05/17 0721 BERNARDA QIU MD Aug 06, 2017 05:49
[2017-08-06] MEDS: FERROUS SULFATE (SR) 142 MG TAB PO SCH ×2 (09:30→22:14)
[2017-08-06] MEDS: ENOXAPARIN 100 MG/ML SYG SC SCH (09:35)
--- NOTE | 2017-08-06 11:45 | CONS ---
Date/Time of Note Date/Time of Note DATE: 08/06/17 TIME: 11:44 Assessment/Plan Assessment/Plan Chief Complaint/Hosp Course bilateral pulmonary emboli WITH Acute respiratory distress MOST LIKELY 2 TO UNDERLING NEOPLASIA, CONSIDERING PELVIC MASS AND INCREASED CE 125 PROCEED WITH HYPERCOAG W-UP- SINCE NO NEOPLASIA IDENTIFIED R ADNEXAL MASS Abdominal pain secondary to probable ovarian torsion versus bleeding neoplasm versus a functional cyst with persistent bleeding post op path- benign CA 125 - 544 will recheck Leukocytosis-likely reactive Normocytic anemia secondary to chronic disease versus acute blood loss Problems: Consultation Date/Type/Reason Admit Date/Time Jul 29, 2017 at 06:13 Initial Consult Date 08/01/17 [facility] Referring Provider: FARZANEH GREEN 24 HR Interval Summary Free Text/Dictation all noted stable path - reviewed Exam/Review of Systems Vital Signs Vitals Vital Signs Date Time Temp Pulse Resp B/P Pulse Ox O2 Delivery O2 Flow Rate FiO2 08/06/17 08:25 99.0 88 18 136/80 98 08/06/17 02:47 2.0 27 08/04/17 20:00 Nasal Cannula Intake and Output 08/05/17 08/05/17 08/06/17 15:00 23:00 07:00 Intake Total 400 ml Output Total 900 ml Balance -500 ml Exam GENERAL: Morbidly obese lady comfortable at rest on nasal cannula oxygen VITAL SIGNS: per chart NECK: Supple. No JVD or lymphadenopathy. CARDIAC EXAM: S1, S2. No added sounds or murmurs. CHEST: clear bilaterally, No added sounds, rales or wheezes ABDOMEN: Soft,min tender. No guarding or rebound. EXTREMITIES: No cyanosis, clubbing or edema. NEUROLOGIC: Generalized weakness. No focal deficits. Results Result Diagram: 08/06/17 0843 08/06/17 0843 Results 24 hrs Laboratory Tests Test 08/06/17 08:43 White Blood Count 9.9 Red Blood Count 3.72 L Hemoglobin 9.7 L Hematocrit 29.9 L Mean Corpuscular Volume 80.4 L Mean Corpuscular Hemoglobin 26.1 L Mean Corpuscular Hemoglobin Concent 32.4 Red Cell Distribution Width 16.2 H Platelet Count 206 Mean Platelet Volume 11.2 H Neutrophils % 71.1 Lymphocytes % 19.3 Monocytes % 7.4 Eosinophils % 1.0 Basophils % 0.1 Nucleated Red Blood Cells % 0.0 Neutrophils # 7.1 Lymphocytes # 1.9 Monocytes # 0.7 Eosinophils # 0.1 Basophils # 0.0 Nucleated Red Blood Cells # 0.0 Sodium Level 137 Potassium Level 3.0 L Chloride Level 99 Carbon Dioxide Level 29 Anion Gap 12 Blood Urea Nitrogen 9 Creatinine 0.55 Glucose Level 116 Calcium Level 7.9 L Medications Medications Current Medications Hydromorphone HCl (Dilaudid) 1 mg Q4H PRN IV PAIN Last administered on 11:34; Admin Dose 1 MG; Start 07/30/17 at 02:30 Hydromorphone HCl (Dilaudid) 0.5 mg Q6H PRN IV PAIN LEVEL 6-10 Last administered on 08/06/17 08:12; Admin Dose 0.5 MG; Start 08/04/17 at 12:00 Acetaminophen/ Hydrocodone Bitart ([place] (5/325)) 1 tab Q6H PRN PO PAIN LEVEL 6 -10 Last administered on 08/05/17 23:33; Admin Dose 1 TAB; Start 08/04/17 at 12 :00 Ondansetron HCl (Zofran Inj) 4 mg Q6H PRN IV NAUSEA AND/OR VOMITING Last administered on 08/04/17 17:50; Admin Dose 4 MG; Start 08/04/17 at 12:00 Acetaminophen (Tylenol Tab) 650 mg Q4H PRN PO PAIN LEVEL 1-3; Start 08/05/17 at 12:30 Enoxaparin Sodium (Lovenox) 100 mg Q12 SC Last administered on 08/06/17 09:35 ; Admin Dose 100 MG; Start 08/05/17 at 21:00 Ferrous Sulfate (Slow Fe) 142 mg BID PO Last administered on 08/06/17 09:30; Admin Dose 142 MG; Start 08/05/17 at 13:30 IV Flush (NS 10 ml) 10 ml PRN PRN IV IV PROTOCOL; Start 08/05/17 at 17:30 Procedures Procedures [facility] a non-profit non-sectarian [facility] asset [address] [place] [address] ; Lab No: [id number] Date: 08/04/2017 FROZEN SECTION EXAM: -Endometriotic cyst of ovary (FSx1)/KAREN (08/04/17; 11:25 a.m.) SPECIMEN: Right ovarian mass and fallopian tube CLINICAL: Pelvic pain, ovarian mass GROSS EXAMINATION: Received unfixed from the surgical suite is a previously opened and disrupted ovarian cyst that measures 8.5 x 6.0 x 2.0 cm overall and weighs 43 grams. An ovary measures 6.0 x 4.0 x 2.0 cm and a fimbriated, edematous fallopian tube is 6.0 cm long, 0.6 cm in diameter. The opened surface demonstrates two disrupted cysts measuring 5.5 x 3.0 x 3.0 cm and 2.0 x 2.0 x 1.0 cm. The inner surfaces are wrinkled, glistening and cantu-brown to cantu-pink with no papillary excrescences. Sectioning the ovarian cyst reveals a greer yellow luteal cyst 0.6 cm in greatest dimension. Representatively sampled in five cassettes with the frozen section in cassette 1; sections of the fallopian tube and ovary with corpus in cassettes 2, 3, 4 and 5. MICROSCOPIC DIAGNOSIS: Right ovarian mass and fallopian tube: -- Endometriotic cysts, ovary. -- Involuting corpus luteum. -- Focal endometriosis, subserosa of fallopian tube, with extensive serosal granulation tissue reaction, histiocytic proliferation, acute hemorrhage and mild acute and chronic inflammation. -- There is no evidence of malignancy. COMMENT: Please refer to Lab No. [id number] for results of pelvic washings for cytology. TREVON/KAREN/aashish/julieta Date of Service: 08/04/17; Date Received: 08/04/17 Dictated: 08/05/17; Transcribed: 08/05/17; Sent by Fax: 08/05/17 Adrián Villatoro M.D. Pathologist Electronically Signed 08/05/2017 ADRIÁN VILLATORO M.D. PATIENT: MAXIMUS GRANT Ux Lead of Laboratory AGE/SEX/: 47/F 1970 MR NO: [id number] VISIT: [id number] ROOM NO: [id number] PHYSICIAN: Boubacar MCKOY, RENE CROSS M.D., S. TISSUE EXAMINATION REPORT RANDALL DELUCA MD Aug 06, 2017 11:45
--- NOTE | 2017-08-06 11:45 | CONS ---
Date/Time of Note Date/Time of Note DATE: 08/06/17 TIME: 11:44 Assessment/Plan Assessment/Plan Chief Complaint/Hosp Course bilateral pulmonary emboli WITH Acute respiratory distress MOST LIKELY 2 TO UNDERLING NEOPLASIA, CONSIDERING PELVIC MASS AND INCREASED CE 125 PROCEED WITH HYPERCOAG W-UP- SINCE NO NEOPLASIA IDENTIFIED R ADNEXAL MASS Abdominal pain secondary to probable ovarian torsion versus bleeding neoplasm versus a functional cyst with persistent bleeding post op path- benign CA 125 - 544 will recheck Leukocytosis-likely reactive Normocytic anemia secondary to chronic disease versus acute blood loss Problems: Consultation Date/Type/Reason Admit Date/Time Jul 29, 2017 at 06:13 Initial Consult Date 08/01/17 [facility] Referring Provider: FARZANEH GREEN 24 HR Interval Summary Free Text/Dictation all noted stable path - reviewed Exam/Review of Systems Vital Signs Vitals Vital Signs Date Time Temp Pulse Resp B/P Pulse Ox O2 Delivery O2 Flow Rate FiO2 08/06/17 08:25 99.0 88 18 136/80 98 08/06/17 02:47 2.0 27 08/04/17 20:00 Nasal Cannula Intake and Output 08/05/17 08/05/17 08/06/17 15:00 23:00 07:00 Intake Total 400 ml Output Total 900 ml Balance -500 ml Exam GENERAL: Morbidly obese lady comfortable at rest on nasal cannula oxygen VITAL SIGNS: per chart NECK: Supple. No JVD or lymphadenopathy. CARDIAC EXAM: S1, S2. No added sounds or murmurs. CHEST: clear bilaterally, No added sounds, rales or wheezes ABDOMEN: Soft,min tender. No guarding or rebound. EXTREMITIES: No cyanosis, clubbing or edema. NEUROLOGIC: Generalized weakness. No focal deficits. Results Result Diagram: 08/06/17 0843 08/06/17 0843 Results 24 hrs Laboratory Tests Test 08/06/17 08:43 White Blood Count 9.9 Red Blood Count 3.72 L Hemoglobin 9.7 L Hematocrit 29.9 L Mean Corpuscular Volume 80.4 L Mean Corpuscular Hemoglobin 26.1 L Mean Corpuscular Hemoglobin Concent 32.4 Red Cell Distribution Width 16.2 H Platelet Count 206 Mean Platelet Volume 11.2 H Neutrophils % 71.1 Lymphocytes % 19.3 Monocytes % 7.4 Eosinophils % 1.0 Basophils % 0.1 Nucleated Red Blood Cells % 0.0 Neutrophils # 7.1 Lymphocytes # 1.9 Monocytes # 0.7 Eosinophils # 0.1 Basophils # 0.0 Nucleated Red Blood Cells # 0.0 Sodium Level 137 Potassium Level 3.0 L Chloride Level 99 Carbon Dioxide Level 29 Anion Gap 12 Blood Urea Nitrogen 9 Creatinine 0.55 Glucose Level 116 Calcium Level 7.9 L Medications Medications Current Medications Hydromorphone HCl (Dilaudid) 1 mg Q4H PRN IV PAIN Last administered on 11:34; Admin Dose 1 MG; Start 07/30/17 at 02:30 Hydromorphone HCl (Dilaudid) 0.5 mg Q6H PRN IV PAIN LEVEL 6-10 Last administered on 08/06/17 08:12; Admin Dose 0.5 MG; Start 08/04/17 at 12:00 Acetaminophen/ Hydrocodone Bitart ([place] (5/325)) 1 tab Q6H PRN PO PAIN LEVEL 6 -10 Last administered on 08/05/17 23:33; Admin Dose 1 TAB; Start 08/04/17 at 12 :00 Ondansetron HCl (Zofran Inj) 4 mg Q6H PRN IV NAUSEA AND/OR VOMITING Last administered on 08/04/17 17:50; Admin Dose 4 MG; Start 08/04/17 at 12:00 Acetaminophen (Tylenol Tab) 650 mg Q4H PRN PO PAIN LEVEL 1-3; Start 08/05/17 at 12:30 Enoxaparin Sodium (Lovenox) 100 mg Q12 SC Last administered on 08/06/17 09:35 ; Admin Dose 100 MG; Start 08/05/17 at 21:00 Ferrous Sulfate (Slow Fe) 142 mg BID PO Last administered on 08/06/17 09:30; Admin Dose 142 MG; Start 08/05/17 at 13:30 IV Flush (NS 10 ml) 10 ml PRN PRN IV IV PROTOCOL; Start 08/05/17 at 17:30 Procedures Procedures [facility] a non-profit non-sectarian [facility] asset [address] [place] [address] ; Lab No: [id number] Date: 08/04/2017 FROZEN SECTION EXAM: -Endometriotic cyst of ovary (FSx1)/KAREN (08/04/17; 11:25 a.m.) SPECIMEN: Right ovarian mass and fallopian tube CLINICAL: Pelvic pain, ovarian mass GROSS EXAMINATION: Received unfixed from the surgical suite is a previously opened and disrupted ovarian cyst that measures 8.5 x 6.0 x 2.0 cm overall and weighs 43 grams. An ovary measures 6.0 x 4.0 x 2.0 cm and a fimbriated, edematous fallopian tube is 6.0 cm long, 0.6 cm in diameter. The opened surface demonstrates two disrupted cysts measuring 5.5 x 3.0 x 3.0 cm and 2.0 x 2.0 x 1.0 cm. The inner surfaces are wrinkled, glistening and cantu-brown to cantu-pink with no papillary excrescences. Sectioning the ovarian cyst reveals a greer yellow luteal cyst 0.6 cm in greatest dimension. Representatively sampled in five cassettes with the frozen section in cassette 1; sections of the fallopian tube and ovary with corpus in cassettes 2, 3, 4 and 5. MICROSCOPIC DIAGNOSIS: Right ovarian mass and fallopian tube: -- Endometriotic cysts, ovary. -- Involuting corpus luteum. -- Focal endometriosis, subserosa of fallopian tube, with extensive serosal granulation tissue reaction, histiocytic proliferation, acute hemorrhage and mild acute and chronic inflammation. -- There is no evidence of malignancy. COMMENT: Please refer to Lab No. [id number] for results of pelvic washings for cytology. TREVON/KAREN/aashish/julieta Date of Service: 08/04/17; Date Received: 08/04/17 Dictated: 08/05/17; Transcribed: 08/05/17; Sent by Fax: 08/05/17 Adrián Villatoro M.D. Pathologist Electronically Signed 08/05/2017 ADRIÁN VILLATORO M.D. 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 TISSUE EXAMINATION REPORT RANDALL DELUCA MD Aug 06, 2017 11:45
--- NOTE | 2017-08-06 11:45 | CONS ---
Date/Time of Note Date/Time of Note DATE: 08/06/17 TIME: 11:44 Assessment/Plan Assessment/Plan Chief Complaint/Hosp Course bilateral pulmonary emboli WITH Acute respiratory distress MOST LIKELY 2 TO UNDERLING NEOPLASIA, CONSIDERING PELVIC MASS AND INCREASED CE 125 PROCEED WITH HYPERCOAG W-UP- SINCE NO NEOPLASIA IDENTIFIED R ADNEXAL MASS Abdominal pain secondary to probable ovarian torsion versus bleeding neoplasm versus a functional cyst with persistent bleeding post op path- benign CA 125 - 544 will recheck Leukocytosis-likely reactive Normocytic anemia secondary to chronic disease versus acute blood loss Problems: Consultation Date/Type/Reason Admit Date/Time Jul 29, 2017 at 06:13 Initial Consult Date 08/01/17 [facility] Referring Provider: FARZANEH GREEN 24 HR Interval Summary Free Text/Dictation all noted stable path - reviewed Exam/Review of Systems Vital Signs Vitals Vital Signs Date Time Temp Pulse Resp B/P Pulse Ox O2 Delivery O2 Flow Rate FiO2 08/06/17 08:25 99.0 88 18 136/80 98 08/06/17 02:47 2.0 27 08/04/17 20:00 Nasal Cannula Intake and Output 08/05/17 08/05/17 08/06/17 15:00 23:00 07:00 Intake Total 400 ml Output Total 900 ml Balance -500 ml Exam GENERAL: Morbidly obese lady comfortable at rest on nasal cannula oxygen VITAL SIGNS: per chart NECK: Supple. No JVD or lymphadenopathy. CARDIAC EXAM: S1, S2. No added sounds or murmurs. CHEST: clear bilaterally, No added sounds, rales or wheezes ABDOMEN: Soft,min tender. No guarding or rebound. EXTREMITIES: No cyanosis, clubbing or edema. NEUROLOGIC: Generalized weakness. No focal deficits. Results Result Diagram: 08/06/17 0843 08/06/17 0843 Results 24 hrs Laboratory Tests Test 08/06/17 08:43 White Blood Count 9.9 Red Blood Count 3.72 L Hemoglobin 9.7 L Hematocrit 29.9 L Mean Corpuscular Volume 80.4 L Mean Corpuscular Hemoglobin 26.1 L Mean Corpuscular Hemoglobin Concent 32.4 Red Cell Distribution Width 16.2 H Platelet Count 206 Mean Platelet Volume 11.2 H Neutrophils % 71.1 Lymphocytes % 19.3 Monocytes % 7.4 Eosinophils % 1.0 Basophils % 0.1 Nucleated Red Blood Cells % 0.0 Neutrophils # 7.1 Lymphocytes # 1.9 Monocytes # 0.7 Eosinophils # 0.1 Basophils # 0.0 Nucleated Red Blood Cells # 0.0 Sodium Level 137 Potassium Level 3.0 L Chloride Level 99 Carbon Dioxide Level 29 Anion Gap 12 Blood Urea Nitrogen 9 Creatinine 0.55 Glucose Level 116 Calcium Level 7.9 L Medications Medications Current Medications Hydromorphone HCl (Dilaudid) 1 mg Q4H PRN IV PAIN Last administered on 11:34; Admin Dose 1 MG; Start 07/30/17 at 02:30 Hydromorphone HCl (Dilaudid) 0.5 mg Q6H PRN IV PAIN LEVEL 6-10 Last administered on 08/06/17 08:12; Admin Dose 0.5 MG; Start 08/04/17 at 12:00 Acetaminophen/ Hydrocodone Bitart ([place] (5/325)) 1 tab Q6H PRN PO PAIN LEVEL 6 -10 Last administered on 08/05/17 23:33; Admin Dose 1 TAB; Start 08/04/17 at 12 :00 Ondansetron HCl (Zofran Inj) 4 mg Q6H PRN IV NAUSEA AND/OR VOMITING Last administered on 08/04/17 17:50; Admin Dose 4 MG; Start 08/04/17 at 12:00 Acetaminophen (Tylenol Tab) 650 mg Q4H PRN PO PAIN LEVEL 1-3; Start 08/05/17 at 12:30 Enoxaparin Sodium (Lovenox) 100 mg Q12 SC Last administered on 08/06/17 09:35 ; Admin Dose 100 MG; Start 08/05/17 at 21:00 Ferrous Sulfate (Slow Fe) 142 mg BID PO Last administered on 08/06/17 09:30; Admin Dose 142 MG; Start 08/05/17 at 13:30 IV Flush (NS 10 ml) 10 ml PRN PRN IV IV PROTOCOL; Start 08/05/17 at 17:30 Procedures Procedures [facility] a non-profit non-sectarian [facility] asset [address] [place] [address] ; Lab No: [id number] Date: 08/04/2017 FROZEN SECTION EXAM: -Endometriotic cyst of ovary (FSx1)/KAREN (08/04/17; 11:25 a.m.) SPECIMEN: Right ovarian mass and fallopian tube CLINICAL: Pelvic pain, ovarian mass GROSS EXAMINATION: Received unfixed from the surgical suite is a previously opened and disrupted ovarian cyst that measures 8.5 x 6.0 x 2.0 cm overall and weighs 43 grams. An ovary measures 6.0 x 4.0 x 2.0 cm and a fimbriated, edematous fallopian tube is 6.0 cm long, 0.6 cm in diameter. The opened surface demonstrates two disrupted cysts measuring 5.5 x 3.0 x 3.0 cm and 2.0 x 2.0 x 1.0 cm. The inner surfaces are wrinkled, glistening and cantu-brown to cantu-pink with no papillary excrescences. Sectioning the ovarian cyst reveals a greer yellow luteal cyst 0.6 cm in greatest dimension. Representatively sampled in five cassettes with the frozen section in cassette 1; sections of the fallopian tube and ovary with corpus in cassettes 2, 3, 4 and 5. MICROSCOPIC DIAGNOSIS: Right ovarian mass and fallopian tube: -- Endometriotic cysts, ovary. -- Involuting corpus luteum. -- Focal endometriosis, subserosa of fallopian tube, with extensive serosal granulation tissue reaction, histiocytic proliferation, acute hemorrhage and mild acute and chronic inflammation. -- There is no evidence of malignancy. COMMENT: Please refer to Lab No. [id number] for results of pelvic washings for cytology. TREOVN/KAREN/aashish/julieta Date of Service: 08/04/17; Date Received: 08/04/17 Dictated: 08/05/17; Transcribed: 08/05/17; Sent by Fax: 08/05/17 Adrián Villatoro M.D. Pathologist Electronically Signed 08/05/2017 ADRIÁN VILLATORO M.D. 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 TISSUE EXAMINATION REPORT RANDALL DELUCA MD Aug 06, 2017 11:45
--- NOTE | 2017-08-06 14:08 | OPR ---
Date/Time of Note Date/Time of Note DATE: 08/06/17 TIME: 14:06 Operative Report Free Text/Dictation OPERATIVE REPORT [facility] Name: Amanda Grace Medical Date: 08/04/17 Preoperative Diagnosis: Postoperative Diagnosis: Procedures: 1- Laparoscopy 2- Lysis of adhesions 3- Unilateral right ureteral dissection with repositioning 4- Right salpingoophorectomy Surgeon: Dr. Nicholas Ballroom Dance Instructor: Bronwyn Thacker Anesthesia: General Indications for Procedure: The patient is a 47- year old female with a 6-8 cm multi-cystic right adnexal mass and pain with and an elevated CA-125 for the patients age with all risks considered. After all options were presented with risks and benefits she agreed to a laparoscopy with a unilateral salpingoophorectomy and staging if needed with additional procedures only if essential due to her recent DVT and need for an IVC filter. Findings and Summary After exploration we observed a complex 6-8 cm right adnexal mass that was partly torsed Because the adnexia was adherent to the sidewall it was necessary to dissect and reposition the right ureter. The right adnexia was then removed without incident and noted to be benign on frozen section. Name: Amanda Grace Medical Procedure: After being prepped and draped in the usual manner an EEA-sizer and pneumo- occluder were inserted vaginally to define anatomy and assure pneumoperitoneum. A 5 millimeter trocar was then inserted cephlad to the umbilicus without incident and the abdomen was insufflated to 15 mm Hg. Subsequently, we then placed two 5 millimeter trocars laterally under direct visualization and a 12 millimeter trocar suprapubically. At this time any pelvic adhesions were lysed with sharp dissection and a Omni or Thunderbeat in the event that bowel were adjacent and addressed with sharp dissection. Subsequently we explored and noted a right adnexal mass densely adherent to the sidewall with considerable old blood throughout the abdomen and scar tissue. The right adnexae was enlarged to 6-8 cm and complex, with significant adhesions to the pelvic sidewall precluding mobilization and distorting the ureteral anatomy. Hence, the round ligament was transected with a Gyrus bipolar cutting forceps and the retroperitoneum opened parallel to the infundibulo-pelvic (IP) ligament with the Gyrus bipolar cutting forceps and Thunderbeat and Omni and the opening extended to define anatomy. The ureter was identified, and noted to be densely adherent to the pathology and somewhat distorted, hence requiring a ureteral dissection/repositioning as a separate procedure. The ureter was dissected away and repositioned with great care using the endo-dissector as well as the Gyrus bipolar cutting forceps bluntly with the Gyrus bipolar cutting forceps also used for retroperitoneal hemostasis as needed with the ureter visualized and mobilized as appropriate. This process was carried out throughout the ureteral length in the pelvis and it peristalsed normally once repositioned. Subsequently, the IP ligament was desiccated and transected with a Thunderbeat as the ureter was noted to be a hydroureter to an extent and a lateral dissection. The adnexia with adherent peritoneum was mobilized with a Omni while visualizing the ureter with the Omni used for localized hemostasis as needed with the ureter visualized. Hence the ovary and Name: [facility] tube were fully by desiccated and transaction of the right triple pedicle with Omni and Thunderbeat. The adnexia had the liquid contents removed and the mass was then removed and was sent to pathology and confirmed to be a partial torsion and endometriosis, removed through a minimal extension. After irrigating and assuring hemostasis the 12-millimeter trocar was removed and the fascia was closed with multiple 0-vicryl using an endo-close devise with multiple sutures. The gas was removed and the skin of all sites then closed with 5-0 Monocryl suture. The EBL was 200ml and the patient tolerated the procedure well and left the OR in good condition. Feliciano Nicholas M.D. Preoperative Diagnosis as above Postoperative Diagnosis as above Operation/Procedure Performed as above Surgeon see signature line Ballroom Dance Instructor as above Anesthesia Type: other Estimated Blood Loss: 150 - 200 ml's Transfusion none Specimen multiple Grafts/Implants none Tubes/Drains as above Complications none Indications as above Procedure Description as above FELICIANO NICOHLAS MD Aug 06, 2017 14:08
--- NOTE | 2017-08-06 14:08 | OPR ---
Date/Time of Note Date/Time of Note DATE: 08/06/17 TIME: 14:06 Operative Report Free Text/Dictation OPERATIVE REPORT [facility] Name: Amanda Grace Medical Date: 08/04/17 Preoperative Diagnosis: Postoperative Diagnosis: Procedures: 1- Laparoscopy 2- Lysis of adhesions 3- Unilateral right ureteral dissection with repositioning 4- Right salpingoophorectomy Surgeon: Dr. Nicholas Nsh Teacher: Bronwyn Thacker Anesthesia: General Indications for Procedure: The patient is a 47- year old female with a 6-8 cm multi-cystic right adnexal mass and pain with and an elevated CA-125 for the patients age with all risks considered. After all options were presented with risks and benefits she agreed to a laparoscopy with a unilateral salpingoophorectomy and staging if needed with additional procedures only if essential due to her recent DVT and need for an IVC filter. Findings and Summary After exploration we observed a complex 6-8 cm right adnexal mass that was partly torsed Because the adnexia was adherent to the sidewall it was necessary to dissect and reposition the right ureter. The right adnexia was then removed without incident and noted to be benign on frozen section. Name: Amanda Grace Medical Procedure: After being prepped and draped in the usual manner an EEA-sizer and pneumo- occluder were inserted vaginally to define anatomy and assure pneumoperitoneum. A 5 millimeter trocar was then inserted cephlad to the umbilicus without incident and the abdomen was insufflated to 15 mm Hg. Subsequently, we then placed two 5 millimeter trocars laterally under direct visualization and a 12 millimeter trocar suprapubically. At this time any pelvic adhesions were lysed with sharp dissection and a Omni or Thunderbeat in the event that bowel were adjacent and addressed with sharp dissection. Subsequently we explored and noted a right adnexal mass densely adherent to the sidewall with considerable old blood throughout the abdomen and scar tissue. The right adnexae was enlarged to 6-8 cm and complex, with significant adhesions to the pelvic sidewall precluding mobilization and distorting the ureteral anatomy. Hence, the round ligament was transected with a Gyrus bipolar cutting forceps and the retroperitoneum opened parallel to the infundibulo-pelvic (IP) ligament with the Gyrus bipolar cutting forceps and Thunderbeat and Omni and the opening extended to define anatomy. The ureter was identified, and noted to be densely adherent to the pathology and somewhat distorted, hence requiring a ureteral dissection/repositioning as a separate procedure. The ureter was dissected away and repositioned with great care using the endo-dissector as well as the Gyrus bipolar cutting forceps bluntly with the Gyrus bipolar cutting forceps also used for retroperitoneal hemostasis as needed with the ureter visualized and mobilized as appropriate. This process was carried out throughout the ureteral length in the pelvis and it peristalsed normally once repositioned. Subsequently, the IP ligament was desiccated and transected with a Thunderbeat as the ureter was noted to be a hydroureter to an extent and a lateral dissection. The adnexia with adherent peritoneum was mobilized with a Omni while visualizing the ureter with the Omni used for localized hemostasis as needed with the ureter visualized. Hence the ovary and Name: [facility] tube were fully by desiccated and transaction of the right triple pedicle with Omni and Thunderbeat. The adnexia had the liquid contents removed and the mass was then removed and was sent to pathology and confirmed to be a partial torsion and endometriosis, removed through a minimal extension. After irrigating and assuring hemostasis the 12-millimeter trocar was removed and the fascia was closed with multiple 0-vicryl using an endo-close devise with multiple sutures. The gas was removed and the skin of all sites then closed with 5-0 Monocryl suture. The EBL was 200ml and the patient tolerated the procedure well and left the OR in good condition. Feliciano Nicholas M.D. Preoperative Diagnosis as above Postoperative Diagnosis as above Operation/Procedure Performed as above Surgeon see signature line Nsh Teacher as above Anesthesia Type: other Estimated Blood Loss: 150 - 200 ml's Transfusion none Specimen multiple Grafts/Implants none Tubes/Drains as above Complications none Indications as above Procedure Description as above FELICIANO NICHOLAS MD Aug 06, 2017 14:08
--- NOTE | 2017-08-06 14:08 | OPR ---
Date/Time of Note Date/Time of Note DATE: 08/06/17 TIME: 14:06 Operative Report Free Text/Dictation OPERATIVE REPORT [facility] Name: Amanda Grace Medical Date: 08/04/17 Preoperative Diagnosis: Postoperative Diagnosis: Procedures: 1- Laparoscopy 2- Lysis of adhesions 3- Unilateral right ureteral dissection with repositioning 4- Right salpingoophorectomy Surgeon: Dr. Nicholas Coin Purse Framer: Bronwyn Thacker Anesthesia: General Indications for Procedure: The patient is a 47- year old female with a 6-8 cm multi-cystic right adnexal mass and pain with and an elevated CA-125 for the patients age with all risks considered. After all options were presented with risks and benefits she agreed to a laparoscopy with a unilateral salpingoophorectomy and staging if needed with additional procedures only if essential due to her recent DVT and need for an IVC filter. Findings and Summary After exploration we observed a complex 6-8 cm right adnexal mass that was partly torsed Because the adnexia was adherent to the sidewall it was necessary to dissect and reposition the right ureter. The right adnexia was then removed without incident and noted to be benign on frozen section. Name: Amanda Grace Medical Procedure: After being prepped and draped in the usual manner an EEA-sizer and pneumo- occluder were inserted vaginally to define anatomy and assure pneumoperitoneum. A 5 millimeter trocar was then inserted cephlad to the umbilicus without incident and the abdomen was insufflated to 15 mm Hg. Subsequently, we then placed two 5 millimeter trocars laterally under direct visualization and a 12 millimeter trocar suprapubically. At this time any pelvic adhesions were lysed with sharp dissection and a Omni or Thunderbeat in the event that bowel were adjacent and addressed with sharp dissection. Subsequently we explored and noted a right adnexal mass densely adherent to the sidewall with considerable old blood throughout the abdomen and scar tissue. The right adnexae was enlarged to 6-8 cm and complex, with significant adhesions to the pelvic sidewall precluding mobilization and distorting the ureteral anatomy. Hence, the round ligament was transected with a Gyrus bipolar cutting forceps and the retroperitoneum opened parallel to the infundibulo-pelvic (IP) ligament with the Gyrus bipolar cutting forceps and Thunderbeat and Omni and the opening extended to define anatomy. The ureter was identified, and noted to be densely adherent to the pathology and somewhat distorted, hence requiring a ureteral dissection/repositioning as a separate procedure. The ureter was dissected away and repositioned with great care using the endo-dissector as well as the Gyrus bipolar cutting forceps bluntly with the Gyrus bipolar cutting forceps also used for retroperitoneal hemostasis as needed with the ureter visualized and mobilized as appropriate. This process was carried out throughout the ureteral length in the pelvis and it peristalsed normally once repositioned. Subsequently, the IP ligament was desiccated and transected with a Thunderbeat as the ureter was noted to be a hydroureter to an extent and a lateral dissection. The adnexia with adherent peritoneum was mobilized with a Omni while visualizing the ureter with the Omni used for localized hemostasis as needed with the ureter visualized. Hence the ovary and Name: [facility] tube were fully by desiccated and transaction of the right triple pedicle with Omni and Thunderbeat. The adnexia had the liquid contents removed and the mass was then removed and was sent to pathology and confirmed to be a partial torsion and endometriosis, removed through a minimal extension. After irrigating and assuring hemostasis the 12-millimeter trocar was removed and the fascia was closed with multiple 0-vicryl using an endo-close devise with multiple sutures. The gas was removed and the skin of all sites then closed with 5-0 Monocryl suture. The EBL was 200ml and the patient tolerated the procedure well and left the OR in good condition. Feliciano Nicholas M.D. Preoperative Diagnosis as above Postoperative Diagnosis as above Operation/Procedure Performed as above Surgeon see signature line Coin Purse Framer as above Anesthesia Type: other Estimated Blood Loss: 150 - 200 ml's Transfusion none Specimen multiple Grafts/Implants none Tubes/Drains as above Complications none Indications as above Procedure Description as above FELICIANO NICHOLAS MD Aug 06, 2017 14:08
--- NOTE | 2017-08-06 15:51 | PN ---
Date/Time of Note Date/Time of Note DATE: 08/06/17 TIME: 15:49 Assessment/Plan VTE Prophylaxis VTE Prophylaxis Intervention: other Lines/Catheters IV Catheter Type (from Nrsg): PICC Line Central line still needed: Yes Urinary Cath still in place: Yes Reason Cath still needed: urinary retention Assessment/Plan Chief Complaint/Hosp Course 47 yo female with PE and ovarian hemorrhage s/p RSO PE: - s/p IVC filter, remove next week per E - start Xarelto given no malginancy to indicate lovenox Advance diet, dc spencer PT/OT Problems: Subjective 24 Hr Interval Summary Free Text/Dictation Tolerating diet well Pathology is benign!!! Exam/Review of Systems Vital Signs Vitals Vital Signs Date Time Temp Pulse Resp B/P Pulse Ox O2 Delivery O2 Flow Rate FiO2 08/06/17 12:23 98.6 75 18 145/76 98 08/06/17 02:47 2.0 27 08/04/17 20:00 Nasal Cannula Intake and Output 08/05/17 08/05/17 08/06/17 15:00 23:00 07:00 Intake Total 400 ml Output Total 900 ml Balance -500 ml Results Result Diagram: 08/06/17 0843 08/06/17 0843 Results 24 hrs Laboratory Tests Test 08/06/17 08:43 White Blood Count 9.9 Red Blood Count 3.72 L Hemoglobin 9.7 L Hematocrit 29.9 L Mean Corpuscular Volume 80.4 L Mean Corpuscular Hemoglobin 26.1 L Mean Corpuscular Hemoglobin Concent 32.4 Red Cell Distribution Width 16.2 H Platelet Count 206 Mean Platelet Volume 11.2 H Neutrophils % 71.1 Lymphocytes % 19.3 Monocytes % 7.4 Eosinophils % 1.0 Basophils % 0.1 Nucleated Red Blood Cells % 0.0 Neutrophils # 7.1 Lymphocytes # 1.9 Monocytes # 0.7 Eosinophils # 0.1 Basophils # 0.0 Nucleated Red Blood Cells # 0.0 Sodium Level 137 Potassium Level 3.0 L Chloride Level 99 Carbon Dioxide Level 29 Anion Gap 12 Blood Urea Nitrogen 9 Creatinine 0.55 Glucose Level 116 Calcium Level 7.9 L Medications Medications Current Medications Hydromorphone HCl (Dilaudid) 1 mg Q4H PRN IV PAIN Last administered on t 11:34; Admin Dose 1 MG; Start 07/30/17 at 02:30 Hydromorphone HCl (Dilaudid) 0.5 mg Q6H PRN IV PAIN LEVEL 6-10 Last administered on 08/06/17 13:57; Admin Dose 0.5 MG; Start 08/04/17 at 12:00 Acetaminophen/ Hydrocodone Bitart ([place] (5/325)) 1 tab Q6H PRN PO PAIN LEVEL 6 -10 Last administered on 08/05/17 23:33; Admin Dose 1 TAB; Start 08/04/17 at 12 :00 Ondansetron HCl (Zofran Inj) 4 mg Q6H PRN IV NAUSEA AND/OR VOMITING Last administered on 08/04/17 17:50; Admin Dose 4 MG; Start 08/04/17 at 12:00 Acetaminophen (Tylenol Tab) 650 mg Q4H PRN PO PAIN LEVEL 1-3; Start 08/05/17 at 12:30 Enoxaparin Sodium (Lovenox) 100 mg Q12 SC Last administered on 08/06/17 09:35 ; Admin Dose 100 MG; Start 08/05/17 at 21:00 Ferrous Sulfate (Slow Fe) 142 mg BID PO Last administered on 08/06/17 09:30; Admin Dose 142 MG; Start 08/05/17 at 13:30 IV Flush (NS 10 ml) 10 ml PRN PRN IV IV PROTOCOL; Start 08/05/17 at 17:30 PAOLA VALVERDE MD Aug 06, 2017 15:51
--- NOTE | 2017-08-06 16:22 | CONS ---
Date/Time of Note Date/Time of Note DATE: 08/06/17 TIME: 16:21 Consult Date/Type/Reason Admit Date/Time Jul 29, 2017 at 06:13 Initial Consult Date 08/01/17 Type of Consultation: Pulmonary Ordering Provider: FARZANEH GREEN Subjective Patient comfortable this morning. No respiratory distress. Still mostly sedentary. Objective Vital Signs Date Time Temp Pulse Resp B/P Pulse Ox O2 Delivery O2 Flow Rate FiO2 08/06/17 16:00 98.0 74 18 118/74 98 08/06/17 02:47 2.0 27 08/04/17 20:00 Nasal Cannula Intake and Output 08/05/17 08/05/17 08/06/17 15:00 23:00 07:00 Intake Total 400 ml Output Total 900 ml Balance -500 ml Exam GENERAL: Elderly obese lady comfortable at rest no acute distress VITAL SIGNS: per chart NECK: Supple. No JVD or lymphadenopathy. CARDIAC EXAM: S1, S2. No added sounds or murmurs. CHEST: clear bilaterally, No added sounds, rales or wheezes ABDOMEN: Soft, nontender. No guarding or rebound. EXTREMITIES: No cyanosis, clubbing or edema. NEUROLOGIC: Generalized weakness. No focal deficits. Results/Medications Result Diagram: 08/06/17 0843 08/06/17 0843 Results 24 hrs Laboratory Tests Test 08/06/17 08:43 White Blood Count 9.9 Red Blood Count 3.72 L Hemoglobin 9.7 L Hematocrit 29.9 L Mean Corpuscular Volume 80.4 L Mean Corpuscular Hemoglobin 26.1 L Mean Corpuscular Hemoglobin Concent 32.4 Red Cell Distribution Width 16.2 H Platelet Count 206 Mean Platelet Volume 11.2 H Neutrophils % 71.1 Lymphocytes % 19.3 Monocytes % 7.4 Eosinophils % 1.0 Basophils % 0.1 Nucleated Red Blood Cells % 0.0 Neutrophils # 7.1 Lymphocytes # 1.9 Monocytes # 0.7 Eosinophils # 0.1 Basophils # 0.0 Nucleated Red Blood Cells # 0.0 Sodium Level 137 Potassium Level 3.0 L Chloride Level 99 Carbon Dioxide Level 29 Anion Gap 12 Blood Urea Nitrogen 9 Creatinine 0.55 Glucose Level 116 Calcium Level 7.9 L Medications Current Medications Hydromorphone HCl (Dilaudid) 1 mg Q4H PRN IV PAIN Last administered on t 11:34; Admin Dose 1 MG; Start 07/30/17 at 02:30 Hydromorphone HCl (Dilaudid) 0.5 mg Q6H PRN IV PAIN LEVEL 6-10 Last administered on 08/06/17 13:57; Admin Dose 0.5 MG; Start 08/04/17 at 12:00 Acetaminophen/ Hydrocodone Bitart ([place] (5/325)) 1 tab Q6H PRN PO PAIN LEVEL 6 -10 Last administered on 08/05/17 23:33; Admin Dose 1 TAB; Start 08/04/17 at 12 :00 Ondansetron HCl (Zofran Inj) 4 mg Q6H PRN IV NAUSEA AND/OR VOMITING Last administered on 08/04/17 17:50; Admin Dose 4 MG; Start 08/04/17 at 12:00 Acetaminophen (Tylenol Tab) 650 mg Q4H PRN PO PAIN LEVEL 1-3; Start 08/05/17 at 12:30 Ferrous Sulfate (Slow Fe) 142 mg BID PO Last administered on 08/06/17 09:30; Admin Dose 142 MG; Start 08/05/17 at 13:30 IV Flush (NS 10 ml) 10 ml PRN PRN IV IV PROTOCOL; Start 08/05/17 at 17:30 Assessment/Plan Chief Complaint/Hosp Course IMPRESSION AND PLAN: 1. Acute abdomen with right adnexal mass, possible hemorrhagic ovarian cyst. Scheduled for surgery today 2. Acute bilateral submassive pulmonary emboli with hypoxemia, No hemodynamic compromise at present, hypoxemia secondary to alveolar hypoventilation in addition to pulmonary emboli. 3. Morbid obesity. 4. Probable obstructive sleep apnea. PLAN: 1. Supplemental O2. 2. Incentive spirometry. Progressive postop incentive spirometry and encourage out of bed 3. Agree with Xarelto. 4. Gynecology recommendations postop. 5. Echocardiogram. Preserved ejection fraction. No evidence of heart failure. Stage I diastolic dysfunction. Ambulate DC planning okay from pulmonary standpoint Problems: ANKIT VIVEROS MD, [facility] Aug 06, 2017 16:22
[2017-08-06] MEDS: RIVAROXABAN 15 MG TABLET PO SCH (18:34)
[2017-08-06] MEDS ORDERED: POTASSIUM CHLORIDE (SR) 20 MEQ TAB PO STA (20:20)
[2017-08-06] MEDS ORDERED: POTASSIUM CHLORIDE 250 ML IVPB ONE (20:30)
[2017-08-06] MEDS: HYDROCODONE/APAP (5/325) TAB PO PRN (22:15)
[2017-08-07] VITALS (12 sets, daily range): BP systolic 128–155; BP diastolic 76–93; PULSE 70–82; RESP 18–20
[2017-08-07] MEDS: HYDROmorphONE 0.5 MG/0.5 ML SYG IV PRN ×3 (03:42→19:52)
[2017-08-07] MEDS: HYDROCODONE/APAP (5/325) TAB PO PRN ×2 (07:57→16:11)
[2017-08-07] MEDS: RIVAROXABAN 15 MG TABLET PO SCH ×2 (07:57→17:26)
[2017-08-07] MEDS: FERROUS SULFATE (SR) 142 MG TAB PO SCH ×2 (08:00→19:52)
--- NOTE | 2017-08-07 15:39 | CONS ---
Date/Time of Note Date/Time of Note DATE: 08/07/17 TIME: 15:37 Consult Date/Type/Reason Admit Date/Time Jul 29, 2017 at 06:13 Initial Consult Date 08/01/17 Type of Consultation: Pulmonary Ordering Provider: FARZANEH GREEN Subjective s/p IVC filter placement Objective Vital Signs Date Time Temp Pulse Resp B/P Pulse Ox O2 Delivery O2 Flow Rate FiO2 08/07/17 15:25 98.2 79 18 128/93 96 08/07/17 13:36 21 08/06/17 02:47 2.0 08/04/17 20:00 Nasal Cannula Intake and Output 08/06/17 08/06/17 08/07/17 15:00 23:00 07:00 Intake Total 700 ml 550 ml Output Total 850 ml Balance -150 ml 550 ml Exam HEENT: Neck supple; no JVD; no LAD CVS: RRR, S1 and S2 CHEST: Clear ABD: Soft, NT, + BS EXT: No c/c/e Results/Medications Result Diagram: 08/06/17 0843 08/06/17 0843 Results 24 hrs Laboratory Tests Test 08/07/17 05:16 CA 125 Antigen 448.0 H Medications Current Medications Hydromorphone HCl (Dilaudid) 1 mg Q4H PRN IV PAIN Last administered on 11:34; Admin Dose 1 MG; Start 07/30/17 at 02:30 Hydromorphone HCl (Dilaudid) 0.5 mg Q6H PRN IV PAIN LEVEL 6-10 Last administered on 08/07/17 11:11; Admin Dose 0.5 MG; Start 08/04/17 at 12:00 Acetaminophen/ Hydrocodone Bitart ([place] (5/325)) 1 tab Q6H PRN PO PAIN LEVEL 6 -10 Last administered on 08/07/17 07:57; Admin Dose 1 TAB; Start 08/04/17 at 12 :00 Ondansetron HCl (Zofran Inj) 4 mg Q6H PRN IV NAUSEA AND/OR VOMITING Last administered on 08/04/17 17:50; Admin Dose 4 MG; Start 08/04/17 at 12:00 Acetaminophen (Tylenol Tab) 650 mg Q4H PRN PO PAIN LEVEL 1-3; Start 11/2/17 at 12:30 Ferrous Sulfate (Slow Fe) 142 mg BID PO Last administered on 08/07/17 08:00; Admin Dose 142 MG; Start 08/05/17 at 13:30 IV Flush (NS 10 ml) 10 ml PRN PRN IV IV PROTOCOL; Start 08/05/17 at 17:30 Assessment/Plan Additional Assessment/Plan IMP: 1. Acute abdomen with right adnexal mass, possible hemorrhagic ovarian cyst. Scheduled for surgery today 2. Acute bilateral submassive pulmonary emboli with hypoxemia, No hemodynamic compromise at present, hypoxemia secondary to alveolar hypoventilation in addition to pulmonary emboli. 3. Morbid obesity. 4. Probable obstructive sleep apnea. PLAN: 1. Supplemental O2--> titrate; ICS 2. Incentive spirometry. Progressive postop incentive spirometry and encourage out of bed 3. Continue anticoagulation SANDRA CHUNG MD Aug 07, 2017 15:39
[2017-08-07] MEDS ORDERED: DOCUSATE SODIUM 100 MG CAP PO PRN (16:00)
[2017-08-07] MEDS ORDERED: MAGNESIUM HYDROXIDE 30ML CUP PO PRN (16:00)
--- NOTE | 2017-08-07 16:12 | PN ---
Date/Time of Note Date/Time of Note DATE: 08/07/17 TIME: 16:08 Assessment/Plan VTE Prophylaxis VTE Prophylaxis Intervention: LMWH Lines/Catheters IV Catheter Type (from Nrsg): PICC Line Central line still needed: Yes Urinary Cath still in place: Yes Reason Cath still needed: urinary retention Assessment/Plan Chief Complaint/Hosp Course pelvic mass and pain and anemia- although refused to cooperate with all exams and studies; risk of bleeding tumor or torsion Problems: Assessment/Plan A- improved and states she can go home 2-days P- continue per IM and pulm; consider ELIQUIS as generally the lowest risk of complications Subjective 24 Hr Interval Summary Free Text/Dictation less pain and josh diet but minimally OOB Exam/Review of Systems Vital Signs Vitals Vital Signs Date Time Temp Pulse Resp B/P Pulse Ox O2 Delivery O2 Flow Rate FiO2 08/07/17 15:25 98.2 79 18 128/93 96 08/07/17 13:36 21 08/06/17 02:47 2.0 08/04/17 20:00 Nasal Cannula Intake and Output 08/06/17 08/06/17 08/07/17 15:00 23:00 07:00 Intake Total 700 ml 550 ml Output Total 850 ml Balance -150 ml 550 ml Exam Resp- clear CVS-NSR Abd- minimally tender and clear Ext- NT no edema Results Result Diagram: 08/06/1743 08/06/17 0843 Results 24 hrs Laboratory Tests Test 08/07/17 05:16 CA 125 Antigen 448.0 H Medications Medications Current Medications Hydromorphone HCl (Dilaudid) 1 mg Q4H PRN IV PAIN Last administered on 11:34; Admin Dose 1 MG; Start 07/30/17 at 02:30 Hydromorphone HCl (Dilaudid) 0.5 mg Q6H PRN IV PAIN LEVEL 6-10 Last administered on 08/07/17 11:11; Admin Dose 0.5 MG; Start 08/04/17 at 12:00 Acetaminophen/ Hydrocodone Bitart ([place] (5/325)) 1 tab Q6H PRN PO PAIN LEVEL 6 -10 Last administered on 08/07/17 07:57; Admin Dose 1 TAB; Start 08/04/17 at 12 :00 Ondansetron HCl (Zofran Inj) 4 mg Q6H PRN IV NAUSEA AND/OR VOMITING Last administered on 08/04/17 17:50; Admin Dose 4 MG; Start 08/04/17 at 12:00 Acetaminophen (Tylenol Tab) 650 mg Q4H PRN PO PAIN LEVEL 1-3; Start 08/05/17 at 12:30 Ferrous Sulfate (Slow Fe) 142 mg BID PO Last administered on 08/07/17 08:00; Admin Dose 142 MG; Start 08/05/17 at 13:30 IV Flush (NS 10 ml) 10 ml PRN PRN IV IV PROTOCOL; Start 08/05/17 at 17:30 Magnesium Hydroxide (Milk Of Mag) 30 ml BID PRN PO CONSTIPATION; Start at 16:00 Polyethylene Glycol (Miralax) 17 gm DAILY PO ; Start 08/08/17 at 09:00 Docusate Sodium (Colace) 100 mg DAILY PRN PO CONSTIPATION; Start 08/07/17 at 16 :00 KIRSTIE CROSS MD Aug 07, 2017 16:12
--- NOTE | 2017-08-07 23:53 | CONS ---
Date/Time of Note Date/Time of Note DATE: 08/07/17 TIME: 23:52 Assessment/Plan Assessment/Plan Chief Complaint/Hosp Course bilateral pulmonary emboli WITH Acute respiratory distress MOST LIKELY 2 TO UNDERLING NEOPLASIA, CONSIDERING PELVIC MASS AND INCREASED CE 125 PROCEED WITH HYPERCOAG W-UP- SINCE NO NEOPLASIA IDENTIFIED R ADNEXAL MASS- BENIGN Abdominal pain secondary to probable ovarian torsion versus bleeding neoplasm versus a functional cyst with persistent bleeding post op path- benign CA 125 - 544 Rechecked - 400+ Leukocytosis-likely reactive Normocytic anemia secondary to chronic disease versus acute blood loss Problems: Consultation Date/Type/Reason Admit Date/Time Jul 29, 2017 at 06:13 Initial Consult Date 08/01/17 Type of Consultation: [facility] Referring Provider: FARZANEH GREEN 24 HR Interval Summary Free Text/Dictation ALL NOTED Exam/Review of Systems Vital Signs Vitals Vital Signs Date Time Temp Pulse Resp B/P Pulse Ox O2 Delivery O2 Flow Rate FiO2 08/07/17 21:32 21 08/07/17 20:00 70 08/07/17 19:58 98.8 20 143/89 94 08/06/17 02:47 2.0 08/04/17 20:00 Nasal Cannula Intake and Output 08/06/17 08/06/17 08/07/17 15:00 23:00 07:00 Intake Total 700 ml 550 ml Output Total 850 ml Balance -150 ml 550 ml Exam GENERAL: Morbidly obese lady comfortable at rest on nasal cannula oxygen VITAL SIGNS: per chart NECK: Supple. No JVD or lymphadenopathy. CARDIAC EXAM: S1, S2. No added sounds or murmurs. CHEST: clear bilaterally, No added sounds, rales or wheezes ABDOMEN: Soft,min tender. No guarding or rebound. EXTREMITIES: No cyanosis, clubbing or edema. NEUROLOGIC: Generalized weakness. No focal deficits. Results Result Diagram: 08/06/17 0843 08/06/17 0843 Results 24 hrs Laboratory Tests Test 08/07/17 05:16 CA 125 Antigen 448.0 H Medications Medications Current Medications Hydromorphone HCl (Dilaudid) 1 mg Q4H PRN IV PAIN Last administered on t 11:34; Admin Dose 1 MG; Start 07/30/17 at 02:30 Hydromorphone HCl (Dilaudid) 0.5 mg Q6H PRN IV PAIN LEVEL 6-10 Last administered on 08/07/17 19:52; Admin Dose 0.5 MG; Start 08/04/17 at 12:00 Acetaminophen/ Hydrocodone Bitart ([place] (5/325)) 1 tab Q6H PRN PO PAIN LEVEL 6 -10 Last administered on 08/07/17 16:11; Admin Dose 1 TAB; Start 08/04/17 at 12 :00 Ondansetron HCl (Zofran Inj) 4 mg Q6H PRN IV NAUSEA AND/OR VOMITING Last administered on 08/04/17 17:50; Admin Dose 4 MG; Start 08/04/17 at 12:00 Acetaminophen (Tylenol Tab) 650 mg Q4H PRN PO PAIN LEVEL 1-3; Start 08/05/17 at 12:30 Ferrous Sulfate (Slow Fe) 142 mg BID PO Last administered on 08/07/17 19:52; Admin Dose 142 MG; Start 08/05/17 at 13:30 IV Flush (NS 10 ml) 10 ml PRN PRN IV IV PROTOCOL; Start 08/05/17 at 17:30 Magnesium Hydroxide (Milk Of Mag) 30 ml BID PRN PO CONSTIPATION Last administered on 08/07/17 16:11; Admin Dose 30 ML; Start 08/07/17 at 16:00 Polyethylene Glycol (Miralax) 17 gm DAILY PO ; Start 08/08/17 at 09:00 Docusate Sodium (Colace) 100 mg DAILY PRN PO CONSTIPATION; Start 08/07/17 at 16 :00 RANDALL DELUCA MD Aug 07, 2017 23:53
[2017-08-08] VITALS (11 sets, daily range): BP systolic 114–130; BP diastolic 64–80; PULSE 73–85; RESP 16–20
[2017-08-08] MEDS: HYDROmorphONE 0.5 MG/0.5 ML SYG IV PRN (04:40)
[2017-08-08] MEDS: POLYETHYLENE GLYCOL 17 GM PACKET PO SCH (08:09)
[2017-08-08] MEDS: RIVAROXABAN 15 MG TABLET PO SCH ×2 (08:10→17:26)
[2017-08-08] MEDS: FERROUS SULFATE (SR) 142 MG TAB PO SCH ×2 (08:10→20:43)
--- NOTE | 2017-08-08 13:12 | PN ---
Date/Time of Note Date/Time of Note DATE: 08/08/17 TIME: 13:10 Assessment/Plan VTE Prophylaxis VTE Prophylaxis Intervention: other Lines/Catheters IV Catheter Type (from Nrs): PICC Line Central line still needed: No Urinary Cath still in place: No Assessment/Plan Chief Complaint/Hosp Course 47 yo female with PE and ovarian cyst hemorrhage s/p RSO PE: - s/p IVC filter, removal Wednesday per Dr Cr - continue Xarelto x 6 months at least - Hypercoag workup in process Ovarian hemorrhage: - Benign on pathology - s/p RSO Discharge likely following IVC filter retrieval Problems: Subjective 24 Hr Interval Summary Free Text/Dictation Feels well, no complaints Offered discharge but prefers to wait for IVC filter retrieval procedure tomorrow Exam/Review of Systems Vital Signs Vitals Vital Signs Date Time Temp Pulse Resp B/P Pulse Ox O2 Delivery O2 Flow Rate FiO2 08/08/17 12:12 78 08/08/17 11:38 97.8 18 130/80 97 08/07/17 21:32 21 08/06/17 02:47 2.0 08/04/17 20:00 Nasal Cannula Intake and Output 08/07/17 08/07/17 08/08/17 15:00 23:00 07:00 Intake Total 1200 ml Balance 1200 ml Exam Constitutional: alert, oriented, well developed Psych: nl mood/affect, no complaints Head: atraumatic, normocephalic Eyes: EOMI, PERRL, nl conjunctiva, nl lids, nl sclera ENMT: nl external ears & nose, nl lips & teeth, nl nasal mucosa & septum Neck: non-tender, supple Respiratory: clear to auscultation, normal air movement Cardiovascular: nl pulses, regular rate and rhythm Gastrointestinal: nl liver, spleen, non-tender, soft Musculoskeletal: nl extremities to inspection, nl gait and stance Extremities: normal pulses Neurological: 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 CHAIN OPERATOR II-XII intact, nl mental status, nl speech, nl strength Skin: nl turgor, No rash or lesions Lymph: nl lymph nodes Results Result Diagram: 08/08/1790108/08/17901 Results 24 hrs Laboratory Tests Test 08/08/17 09:02 White Blood Count 9.6 Red Blood Count 3.86 L Hemoglobin 9.9 L Hematocrit 31.5 L Mean Corpuscular Volume 81.6 L Mean Corpuscular Hemoglobin 25.6 L Mean Corpuscular Hemoglobin Concent 31.4 L Red Cell Distribution Width 16.5 H Platelet Count 256 # Mean Platelet Volume 11.1 H Neutrophils % 71.8 Lymphocytes % 18.9 Monocytes % 5.9 Eosinophils % 2.1 Basophils % 0.2 Nucleated Red Blood Cells % 0.0 Neutrophils # 6.9 Lymphocytes # 1.8 Monocytes # 0.6 Eosinophils # 0.2 Basophils # 0.0 Nucleated Red Blood Cells # 0.0 Sodium Level 137 Potassium Level 3.9 Chloride Level 101 Carbon Dioxide Level 25 Anion Gap 15 Blood Urea Nitrogen 9 Creatinine 0.60 Glucose Level 177 Calcium Level 8.5 Medications Medications Current Medications Hydromorphone HCl (Dilaudid) 1 mg Q4H PRN IV PAIN Last administered on 11:34; Admin Dose 1 MG; Start 07/30/17 at 02:30 Hydromorphone HCl (Dilaudid) 0.5 mg Q6H PRN IV PAIN LEVEL 6-10 Last administered on 08/08/17 04:40; Admin Dose 0.5 MG; Start 08/04/17 at 12:00 Acetaminophen/ Hydrocodone Bitart ([place] (5/325)) 1 tab Q6H PRN PO PAIN LEVEL 6 -10 Last administered on 08/07/17 16:11; Admin Dose 1 TAB; Start 08/04/17 at 12 :00 Ondansetron HCl (Zofran Inj) 4 mg Q6H PRN IV NAUSEA AND/OR VOMITING Last administered on 08/04/17 17:50; Admin Dose 4 MG; Start 08/04/17 at 12:00 Acetaminophen (Tylenol Tab) 650 mg Q4H PRN PO PAIN LEVEL 1-3; Start 08/05/17 at 12:30 Ferrous Sulfate (Slow Fe) 142 mg BID PO Last administered on 08/08/17 08:10; Admin Dose 142 MG; Start 08/05/17 at 13:30 IV Flush (NS 10 ml) 10 ml PRN PRN IV IV PROTOCOL; Start 08/05/17 at 17:30 Magnesium Hydroxide (Milk Of Mag) 30 ml BID PRN PO CONSTIPATION Last administered on 08/07/17 16:11; Admin Dose 30 ML; Start 08/07/17 at 16:00 Polyethylene Glycol (Miralax) 17 gm DAILY PO Last administered on 08/08/17t 08: 09; Admin Dose 17 GM; Start 08/08/17 at 09:00 Docusate Sodium (Colace) 100 mg DAILY PRN PO CONSTIPATION; Start 08/07/17 at 16 :00 PAOLA VALVERDE MD Aug 08, 2017 13:12
--- NOTE | 2017-08-08 15:50 | CONS ---
Date/Time of Note Date/Time of Note DATE: 08/08/17 TIME: 15:48 Consult Date/Type/Reason Admit Date/Time Jul 29, 2017 at 06:13 Initial Consult Date 08/01/17 Type of Consultation: Pulm Ordering Provider: FARZANEH GREEN Subjective No events. Objective Vital Signs Date Time Temp Pulse Resp B/P Pulse Ox O2 Delivery O2 Flow Rate FiO2 08/08/17 12:12 78 08/08/17 11:38 97.8 18 130/80 97 08/07/17 21:32 21 08/06/17 02:47 2.0 08/04/17 20:00 Nasal Cannula Intake and Output 08/07/17 08/07/17 08/08/17 15:00 23:00 07:00 Intake Total 1200 ml Balance 1200 ml Exam HEENT: Neck supple; no JVD; no LAD CVS: RRR, S1 and S2 CHEST: Coarse BS ABD: Distended, NT, + BS EXT: No c/c/ + edema Results/Medications Result Diagram: 08/08/17 0902 08/08/17 0902 Results 24 hrs Laboratory Tests Test 08/08/17 09:02 White Blood Count 9.6 Red Blood Count 3.86 L Hemoglobin 9.9 L Hematocrit 31.5 L Mean Corpuscular Volume 81.6 L Mean Corpuscular Hemoglobin 25.6 L Mean Corpuscular Hemoglobin Concent 31.4 L Red Cell Distribution Width 16.5 H Platelet Count 256 # Mean Platelet Volume 11.1 H Neutrophils % 71.8 Lymphocytes % 18.9 Monocytes % 5.9 Eosinophils % 2.1 Basophils % 0.2 Nucleated Red Blood Cells % 0.0 Neutrophils # 6.9 Lymphocytes # 1.8 Monocytes # 0.6 Eosinophils # 0.2 Basophils # 0.0 Nucleated Red Blood Cells # 0.0 Sodium Level 137 Potassium Level 3.9 Chloride Level 101 Carbon Dioxide Level 25 Anion Gap 15 Blood Urea Nitrogen 9 Creatinine 0.60 Glucose Level 177 Calcium Level 8.5 Medications Current Medications Acetaminophen/ Hydrocodone Bitart ([place] (5/325)) 1 tab Q6H PRN PO PAIN LEVEL 6 -10 Last administered on 08/07/17t 16:11; Admin Dose 1 TAB; Start 08/04/17 at 12 :00 Ondansetron HCl (Zofran Inj) 4 mg Q6H PRN IV NAUSEA AND/OR VOMITING Last administered on 08/04/17 17:50; Admin Dose 4 MG; Start 08/04/17 at 12:00 Acetaminophen (Tylenol Tab) 650 mg Q4H PRN PO PAIN LEVEL 1-3; Start 08/05/17 at 12:30 Ferrous Sulfate (Slow Fe) 142 mg BID PO Last administered on 08/08/17 08:10; Admin Dose 142 MG; Start 08/05/17 at 13:30 IV Flush (NS 10 ml) 10 ml PRN PRN IV IV PROTOCOL; Start 08/05/17 at 17:30 Magnesium Hydroxide (Milk Of Mag) 30 ml BID PRN PO CONSTIPATION Last administered on 08/07/17 16:11; Admin Dose 30 ML; Start 08/07/17 at 16:00 Polyethylene Glycol (Miralax) 17 gm DAILY PO Last administered on 08/08/17 08: 09; Admin Dose 17 GM; Start 08/08/17 at 09:00 Docusate Sodium (Colace) 100 mg DAILY PRN PO CONSTIPATION; Start 08/07/17 at 16 :00 Assessment/Plan Additional Assessment/Plan IMP: 1. Acute abdomen with right adnexal mass, possible hemorrhagic ovarian cyst. 2. Acute bilateral submassive pulmonary emboli with hypoxemia, No hemodynamic compromise at present, hypoxemia secondary to alveolar hypoventilation in addition to pulmonary emboli. 3. Morbid obesity 4. Probable obstructive sleep apnea. PLAN: 1. Supplemental O2--> titrate as tolerated and continue ICS 2. PT/OT 3. Continue anticoagulation 4. Plan for IVC filter retrieval on Wednesday SANDRA CHUNG MD Aug 08, 2017 15:50
--- NOTE | 2017-08-08 18:21 | PN ---
Date/Time of Note Date/Time of Note DATE: 08/08/17 TIME: 18:15 Assessment/Plan VTE Prophylaxis VTE Prophylaxis Intervention: LMWH Lines/Catheters IV Catheter Type (from Nrsg): PICC Line Central line still needed: Yes Urinary Cath still in place: No Assessment/Plan Chief Complaint/Hosp Course pelvic mass and pain and anemia- although refused to cooperate with all exams and studies; risk of bleeding tumor or torsion Problems: Assessment/Plan A- improved P- timing of IVC filter and timing of discharge per vascular surg and IM appreciated SE Subjective 24 Hr Interval Summary Free Text/Dictation some rt sided pain but much improved. Exam/Review of Systems Vital Signs Vitals Vital Signs Date Time Temp Pulse Resp B/P Pulse Ox O2 Delivery O2 Flow Rate FiO2 08/08/17 16:09 85 08/08/17 16:06 98.7 18 124/72 95 08/07/17 21:32 21 08/06/17 02:47 2.0 08/04/17 20:00 Nasal Cannula Intake and Output 08/07/17 08/07/17 08/08/17 15:00 23:00 07:00 Intake Total 1200 ml Balance 1200 ml Exam Resp- clear CVS- NSR Abd- NT and healing well Ext- NT Constitutional: alert, oriented, well developed Psych: nl mood/affect, no complaints Head: atraumatic, normocephalic Eyes: EOMI, PERRL, nl conjunctiva, nl lids, nl sclera ENMT: nl external ears & nose, nl lips & teeth, nl nasal mucosa & septum Neck: non-tender, supple Respiratory: clear to auscultation, normal air movement Cardiovascular: nl pulses, regular rate and rhythm Gastrointestinal: nl liver, spleen, non-tender, soft Musculoskeletal: nl extremities to inspection, nl gait and stance Extremities: normal pulses Neurological: SOIL AND PLANT SCIENTIST II-XII intact, nl mental status, nl speech, nl strength Skin: nl turgor, No rash or lesions Lymph: nl lymph nodes Results Result Diagram: 08/08/1790108/08/17901 Results 24 hrs Laboratory Tests Test 08/08/17 09:02 White Blood Count 9.6 Red Blood Count 3.86 L Hemoglobin 9.9 L Hematocrit 31.5 L Mean Corpuscular Volume 81.6 L Mean Corpuscular Hemoglobin 25.6 L Mean Corpuscular Hemoglobin Concent 31.4 L Red Cell Distribution Width 16.5 H Platelet Count 256 # Mean Platelet Volume 11.1 H Neutrophils % 71.8 Lymphocytes % 18.9 Monocytes % 5.9 Eosinophils % 2.1 Basophils % 0.2 Nucleated Red Blood Cells % 0.0 Neutrophils # 6.9 Lymphocytes # 1.8 Monocytes # 0.6 Eosinophils # 0.2 Basophils # 0.0 Nucleated Red Blood Cells # 0.0 Sodium Level 137 Potassium Level 3.9 Chloride Level 101 Carbon Dioxide Level 25 Anion Gap 15 Blood Urea Nitrogen 9 Creatinine 0.60 Glucose Level 177 Calcium Level 8.5 Medications Medications Current Medications Acetaminophen/ Hydrocodone Bitart ([place] (5/325)) 1 tab Q6H PRN PO PAIN LEVEL 6 -10 Last administered on 08/07/17 16:11; Admin Dose 1 TAB; Start 08/04/17 at 12 :00 Ondansetron HCl (Zofran Inj) 4 mg Q6H PRN IV NAUSEA AND/OR VOMITING Last administered on 08/04/17 17:50; Admin Dose 4 MG; Start 08/04/17 at 12:00 Acetaminophen (Tylenol Tab) 650 mg Q4H PRN PO PAIN LEVEL 1-3; Start 08/05/17 at 12:30 Ferrous Sulfate (Slow Fe) 142 mg BID PO Last administered on 08/08/17 08:10; Admin Dose 142 MG; Start 08/05/17 at 13:30 IV Flush (NS 10 ml) 10 ml PRN PRN IV IV PROTOCOL; Start 08/05/17 at 17:30 Magnesium Hydroxide (Milk Of Mag) 30 ml BID PRN PO CONSTIPATION Last administered on 08/07/17 16:11; Admin Dose 30 ML; Start 08/07/17 at 16:00 Polyethylene Glycol (Miralax) 17 gm DAILY PO Last administered on 08/08/17 08: 09; Admin Dose 17 GM; Start 08/08/17 at 09:00 Docusate Sodium (Colace) 100 mg DAILY PRN PO CONSTIPATION; Start 08/07/17 at 16 :00 KIRSTIE CROSS MD Aug 08, 2017 18:21
--- NOTE | 2017-08-08 18:47 | CONS ---
Date/Time of Note Date/Time of Note DATE: 08/08/17 TIME: 18:46 Assessment/Plan Assessment/Plan Chief Complaint/Hosp Course bilateral pulmonary emboli WITH Acute respiratory distress MOST LIKELY 2 TO UNDERLING NEOPLASIA, CONSIDERING PELVIC MASS AND INCREASED CE 125 PROCEED WITH HYPERCOAG W-UP- SINCE NO NEOPLASIA IDENTIFIED R ADNEXAL MASS- BENIGN Abdominal pain secondary to probable ovarian torsion versus bleeding neoplasm versus a functional cyst with persistent bleeding post op path- benign CA 125 - 544 Rechecked - 400+ Leukocytosis-likely reactive Normocytic anemia secondary to chronic disease versus acute blood loss Problems: Consultation Date/Type/Reason Admit Date/Time Jul 29, 2017 at 06:13 Initial Consult Date 08/01/17 [facility] Referring Provider: FARZANEH GREEN 24 HR Interval Summary Free Text/Dictation all noted no new events Exam/Review of Systems Vital Signs Vitals Vital Signs Date Time Temp Pulse Resp B/P Pulse Ox O2 Delivery O2 Flow Rate FiO2 08/08/17 16:09 85 08/08/17 16:06 98.7 18 124/72 95 08/07/17 21:32 21 08/06/17 02:47 2.0 08/04/17 20:00 Nasal Cannula Intake and Output 08/07/17 08/07/17 08/08/17 15:00 23:00 07:00 Intake Total 1200 ml Balance 1200 ml Exam GENERAL: Morbidly obese lady comfortable at rest on nasal cannula oxygen VITAL SIGNS: per chart NECK: Supple. No JVD or lymphadenopathy. CARDIAC EXAM: S1, S2. No added sounds or murmurs. CHEST: clear bilaterally, No added sounds, rales or wheezes ABDOMEN: Soft,min tender. No guarding or rebound. EXTREMITIES: No cyanosis, clubbing or edema. NEUROLOGIC: Generalized weakness. No focal deficits. Results Result Diagram: 08/08/1790108/08/17901 Results 24 hrs Laboratory Tests Test 08/08/17 09:02 White Blood Count 9.6 Red Blood Count 3.86 L Hemoglobin 9.9 L Hematocrit 31.5 L Mean Corpuscular Volume 81.6 L Mean Corpuscular Hemoglobin 25.6 L Mean Corpuscular Hemoglobin Concent 31.4 L Red Cell Distribution Width 16.5 H Platelet Count 256 # Mean Platelet Volume 11.1 H Neutrophils % 71.8 Lymphocytes % 18.9 Monocytes % 5.9 Eosinophils % 2.1 Basophils % 0.2 Nucleated Red Blood Cells % 0.0 Neutrophils # 6.9 Lymphocytes # 1.8 Monocytes # 0.6 Eosinophils # 0.2 Basophils # 0.0 Nucleated Red Blood Cells # 0.0 Sodium Level 137 Potassium Level 3.9 Chloride Level 101 Carbon Dioxide Level 25 Anion Gap 15 Blood Urea Nitrogen 9 Creatinine 0.60 Glucose Level 177 Calcium Level 8.5 Medications Medications Current Medications Acetaminophen/ Hydrocodone Bitart ([place] (5/325)) 1 tab Q6H PRN PO PAIN LEVEL 6 -10 Last administered on 08/07/17 16:11; Admin Dose 1 TAB; Start 08/04/17 at 12 :00 Ondansetron HCl (Zofran Inj) 4 mg Q6H PRN IV NAUSEA AND/OR VOMITING Last administered on 08/04/17 17:50; Admin Dose 4 MG; Start 08/04/17 at 12:00 Acetaminophen (Tylenol Tab) 650 mg Q4H PRN PO PAIN LEVEL 1-3; Start 08/05/17 at 12:30 Ferrous Sulfate (Slow Fe) 142 mg BID PO Last administered on 08/08/17 08:10; Admin Dose 142 MG; Start 08/05/17 at 13:30 IV Flush (NS 10 ml) 10 ml PRN PRN IV IV PROTOCOL; Start 08/05/17 at 17:30 Magnesium Hydroxide (Milk Of Mag) 30 ml BID PRN PO CONSTIPATION Last administered on 08/07/17 16:11; Admin Dose 30 ML; Start 08/07/17 at 16:00 Polyethylene Glycol (Miralax) 17 gm DAILY PO Last administered on 08/08/17 08: 09; Admin Dose 17 GM; Start 08/08/17 at 09:00 Docusate Sodium (Colace) 100 mg DAILY PRN PO CONSTIPATION; Start 08/07/17 at 16 :00 RANDALL DELUCA MD Aug 08, 2017 18:47
[2017-08-08] MEDS: HYDROCODONE/APAP (5/325) TAB PO PRN (20:42)
[2017-08-09 02:06] VITALS: BP 144/60; RESP 20
[2017-08-09] MEDS: POLYETHYLENE GLYCOL 17 GM PACKET PO SCH (07:27)
[2017-08-09] MEDS: FERROUS SULFATE (SR) 142 MG TAB PO SCH (07:27)
[2017-08-09 07:59] VITALS: BP 127/74; RESP 20
[2017-08-09] MEDS: RIVAROXABAN 15 MG TABLET PO SCH (08:32)
[2017-08-09] MEDS ORDERED: LIDOCAINE 1% (MDV) 20 ML INJ ONE (09:18)
[2017-08-09] MEDS ORDERED: FENTAnyl 50 MCG/ML VIAL ONE (09:18)
[2017-08-09] MEDS ORDERED: MIDAZOLAM 1 MG/ML 2 ML INJ ONE (09:18)
[2017-08-09] MEDS ORDERED: HEPARIN 1000 UNITS/NS (A-LINE) 1,000 ML ONE (09:19)
--- NOTE | 2017-08-09 10:06 | HPN ---
Date/Time of Note Date/Time of Note DATE: 08/09/17 TIME: 10:06 Interval H&P Admission Note Pt. seen H&P reviewed: No system changes BERNARDA QIU MD Aug 09, 2017 10:06
--- NOTE | 2017-08-09 10:13 | SIPON ---
Date/Time of Note Date/Time of Note DATE: 08/09/17 TIME: 10:13 Operative Report Preoperative Diagnosis PE Postoperative Diagnosis SAME Operation/Procedure Performed IVC FILTER REMOVAL Surgeon see signature line certified registered dental assistant NONE Anesthesia: moderate sedation Estimated blood loss: minimal Transfusion Required none Specimen THE FILTER Grafts/Implants none Complications none BERNARDA QIU MD Aug 09, 2017 10:13
--- NOTE | 2017-08-09 10:13 | SIPON ---
Date/Time of Note Date/Time of Note DATE: 08/09/17 TIME: 10:13 Operative Report Preoperative Diagnosis PE Postoperative Diagnosis SAME Operation/Procedure Performed IVC FILTER REMOVAL Surgeon see signature line product development assistant NONE Anesthesia: moderate sedation Estimated blood loss: minimal Transfusion Required none Specimen THE FILTER Grafts/Implants none Complications none BERNARDA QIU MD Aug 09, 2017 10:13
--- NOTE | 2017-08-09 10:13 | SIPON ---
Date/Time of Note Date/Time of Note DATE: 08/09/17 TIME: 10:13 Operative Report Preoperative Diagnosis PE Postoperative Diagnosis SAME Operation/Procedure Performed IVC FILTER REMOVAL Surgeon see signature line lpn or medical assistant NONE Anesthesia: moderate sedation Estimated blood loss: minimal Transfusion Required none Specimen THE FILTER Grafts/Implants none Complications none BERNARDA QIU MD Aug 09, 2017 10:13
[2017-08-09 10:23] VITALS: BP 126/77; RESP 20
--- NOTE | 2017-08-09 10:27 | OPR ---
DATE OF OPERATION: 08/09/2017 SURGEON: James Flores MD PREOPERATIVE DIAGNOSIS: Pulmonary embolism. POSTOPERATIVE DIAGNOSIS: Pulmonary embolism. ANESTHESIA: Local with moderate sedation. ESTIMATED BLOOD LOSS: Minimal. COMPLICATIONS: None. HEPARIN: None. CONTRAST: As recorded. ACCESS: Right internal jugular vein. CLOSURE: Manual compression. INDICATIONS: This is a 47-year-old female who presented with pulmonary embolism and significantly l arge right ovarian mass in which she underwent excision of this mass. Suggestion of hypercoagulable workup was initiated and the possibility of iliac vein compression secondary to mass. 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 Postoperati vely, now she no longer has indication for her IVC filter as she is able to tolerate anticoagulation with Xarelto. Therefore, patient and family have been informed of alternatives, risks, and benefit s. Risks including but not limited to bleeding, thrombosis, embolization, myocardial infarction, de ath, stroke, device malfunction, infection, pneumothorax, nephrotoxicity and patient has agreed to p roceed. PROCEDURE: 1. Ultrasound-guided access of the right internal jugular vein. 2. Removal of inferior vena cava filter. 3. Moderate sedation. DESCRIPTION OF PROCEDURE: The patient was brought into the angio suite and placed in supine positio n. Right neck and chest was prepped and draped in usual standard sterile fashion. Timeout was comp leted verifying the correct patient, procedure, positioning, and IVC filter catheter kit at the begi nning of the procedure. At this point, the skin and subcutaneous tissue was anesthetized with 1% li docaine. Landmarks were identified and using ultrasound guidance, micropuncture needle was then use d to access the central vein. The wire was placed under fluoroscopy in the superior vena cava. Aft er creating a stab incision at the wire insertion site, we placed a microcatheter. The microwire wa s then exchanged with a Bentson wire that was placed in the inferior vena cava. At this point, the track was dilated with serial dilators. At this point, the IVC retrieval sheath and catheter was pl aced over the wire and placed near the IVC filter. A central venogram was performed to evaluate for any clot in the distal aspect of the IVC filter. None was identified; therefore, the plan was to r etrieve it. Using the snare wire from the retrieval kit, the IVC filter was secured and removed und er fluoroscopy visualization throughout. At this point, a completion venogram was performed and manas ntified. No further extravasation and issues. Manual compression was held at the right internal ju gular vein puncture site. The patient tolerated procedure well and was taken to the postanesthesia care unit in stable conditi on. All instrument, sponge and needle counts wires, catheters and needles were correct x2. Dictated By: JAMES FALCON/HERON Conf#: [id number] DID#: [id number]
[2017-08-09] MEDS ORDERED: RIVA20TA PO (10:49)
[2017-08-09] MEDS ORDERED: RIVA15TA PO (10:49)
--- NOTE | 2017-08-09 10:50 | PDOCDIS ---
Discharge Instructions CONDITION Patient Condition: Good HOME CARE INSTRUCTIONS: Diet Instructions: Regular ACTIVITY: Activity Restrictions: No Restrictions FOLLOW UP/APPOINTMENTS Follow-up Plan F/U WITH YOUR PCP IN 1-2 WEEKS FARZANEH GREEN Aug 09, 2017 10:50
--- NOTE | 2017-08-10 09:17 | CONS ---
Date/Time of Note Date/Time of Note DATE: 08/09/17 TIME: 12:12 VK LE Assessment/Plan Assessment/Plan Chief Complaint/Hosp Course bilateral pulmonary emboli WITH Acute respiratory distress OK TO DC ON XARELTO HYPERCOAG W-UP- P R ADNEXAL MASS- BENIGN Abdominal pain secondary to probable ovarian torsion versus bleeding neoplasm versus a functional cyst with persistent bleeding post op path- benign CA 125 - 544 Rechecked - 400+ Leukocytosis-likely reactive Normocytic anemia secondary to chronic disease versus acute blood loss Problems: Consultation Date/Type/Reason Admit Date/Time Jul 29, 2017 at 06:13 Initial Consult Date 08/01/17 [facility] Referring Provider: FARZANEH GREEN 24 HR Interval Summary Free Text/Dictation ALL NOTED POST IVF REMOVAL ON XARELTO Exam/Review of Systems Vital Signs Vitals Vital Signs Date Time Temp Pulse Resp B/P Pulse Ox O2 Delivery O2 Flow Rate FiO2 08/09/17 10:23 98.0 80 20 126/77 94 08/07/17 21:32 21 Exam GENERAL: Morbidly obese lady comfortable at rest on nasal cannula oxygen VITAL SIGNS: per chart NECK: Supple. No JVD or lymphadenopathy. CARDIAC EXAM: S1, S2. No added sounds or murmurs. CHEST: clear bilaterally, No added sounds, rales or wheezes ABDOMEN: Soft,min tender. No guarding or rebound. EXTREMITIES: No cyanosis, clubbing or edema. NEUROLOGIC: Generalized weakness. No focal deficits. Results Result Diagram: 08/08/17 0902 08/08/17 0902 RANDALL DELUCA MD Aug 10, 2017 09:17
== END 2017-08-09 12:00 | disposition home or self-care (01) | DRG 742 ==
LOC: E/R 21:00 → MS1 07-29 06:13 → MS2 07-29 13:39 → ICU 07-31 08:17 → TEL 08-03 10:20 → MS2 08-08 21:55
PROVIDERS: ADMIT Obstetrics & Gynecology Obstetrics; ATTEND Obstetrics & Gynecology Obstetrics
PROC: 06H03DZ Insertion of Intraluminal Device into Inferior Vena Cava, Percutaneous Approach (ICD-10-PCS; 2017-08-02)
PROC: 30233K1 Transfusion of Nonautologous Frozen Plasma into Peripheral Vein, Percutaneous Approach (ICD-10-PCS; 2017-08-03)
PROC: 0TN64ZZ Release Right Ureter, Percutaneous Endoscopic Approach (ICD-10-PCS; 2017-08-04)
PROC: 0UT04ZZ Resection of Right Ovary, Percutaneous Endoscopic Approach (ICD-10-PCS; 2017-08-04)
PROC: 0TS64ZZ Reposition Right Ureter, Percutaneous Endoscopic Approach (ICD-10-PCS; 2017-08-04)
PROC: 0UT54ZZ Resection of Right Fallopian Tube, Percutaneous Endoscopic Approach (ICD-10-PCS; principal; 2017-08-04 08:30)
PROC: 02HV33Z Insertion of Infusion Device into Superior Vena Cava, Percutaneous Approach (ICD-10-PCS; 2017-08-05)
DX: N83.201 Unspecified ovarian cyst, right side (principal); K66.1 Hemoperitoneum; I26.99 Other pulmonary embolism without acute cor pulmonale; J96.01 Acute respiratory failure with hypoxia; J90 Pleural effusion, not elsewhere classified; D62 Acute posthemorrhagic anemia; J98.11 Atelectasis; N13.4 Hydroureter; N83.511 Torsion of right ovary and ovarian pedicle; E66.01 Morbid (severe) obesity due to excess calories; G47.33 Obstructive sleep apnea (adult) (pediatric); D64.9 Anemia, unspecified; R97.1 Elevated cancer antigen 125 [CA 125]; N80.8 Other endometriosis
CPT/HCPCS: 36415; 36430; 36569; 37191; 71010; 71275; 72195; 74177; 74181; 75827; 75940; 76705; 76830; 76856; 76937; 80048; 80053; 81001; 81240; 83036; 83090; 83540; 83690; 83735; 83890; 84100; 84484; 84702; 85025; 85300; 85302; 85305; 85610; 85730; 86038; 86147; 86301; 86304; 86850; 86900; 86901; 86920; 87070; 87075; 87081; 87086; 90686; 93005; 93306; 93970; 94664; 96374; 96375; 96376; C1769; C1880; J0690; J1100; J1170; J1200; J1644; J1650; J2250; J2270; J2274; J2405; J3010; J3480; J7030; J7120; P9059; Q9967